=== PATIENT | female | born 1940 | race Caucasian/White ===

== ENCOUNTER 2018-06-30 17:01 | Inpatient (IN) ==
[2018-06-30 23:44] LABS: URINE SOURCE CLEAN CATCH
[2018-07-01 00:16] LABS: URINE RBC TNTC /HPF (<10); URINE WBC <10 /HPF (<10)
[2018-07-01 00:17] LABS: BILIRUBIN URINE NEGATIVE (NEGATIVE); BLOOD URINE NEGATIVE (NEGATIVE); COLOR YELLOW; GLUCOSE URINE NEGATIVE (NEGATIVE); KETONE URINE NEGATIVE (NEGATIVE); SP GRAVITY URINE 1.016; TURBIDITY URINE HAZY (CLEAR); UR EPITHELIAL CELLS <10 /HPF (<10); URINE BACTERIA 1+ /HPF
[2018-07-01 00:18] LABS: LEUKOCYTES URINE LARGE (NEGATIVE); NITRITE URINE NEGATIVE (NEGATIVE); PROTEIN URINE TRACE mg/dL (NEGATIVE); UROBILINOGEN URINE NORMAL (NORMAL)
[2018-07-01 00:20] LABS: URINE CASTS NONE SEEN; URINE CRYSTALS NONE SEEN; URINE SMALL ROUND CELLS NONE SEEN; URINE YEAST NONE SEEN
[2018-07-01] MEDS ORDERED: DUONEB (A & A) INH ONE ×2 (00:51→07:31)
[2018-07-01 00:59] LABS: BASO# 0.02 X1000 (0.0-0.2); BASO% 0.4 % (0.0-0.8); EOS# 0.04 X1000 (0.0-0.7); EOS% 0.7 % (0.0-10.0); HEMATOCRIT 36.5 % (37.0-47.0); HEMOGLOBIN 11.8 g/dL (12.0-16.0); IMM GRAN# 0.03 X1000 (0.0-0.04); IMM GRAN% 0.6 % (0.0-0.5); LYMPH# 1.15 X1000 (1.2-3.4); LYMPH% 21.4 % (20.5-51.1); MCH 36.1 PG (27-31); MCHC 32.3 g/dL (33-37); MCV 111.6 FL (81-99); MONO# 0.94 X1000 (0.11-0.59); MONO% 17.5 % (1.7-9.3); NEUT# 3.19 X1000 (1.4-6.5); NEUT% 59.4 % (42.2-75.2); PLT 220 X1000 (130-400); RBC 3.27 XMIL (4.2-5.4); RDW 14.2 % (11.5-14.5); WBC 5.37 X1000 (4.8-10.8)
[2018-07-01 01:20] LABS: ALB/GLOB RATIO 1.1; ALBUMIN 3.7 g/dL (3.5-5.0); CALCIUM 9.5 mg/dL (8.8-10.2); CREATININE 1.9 mg/dL (0.5-0.9); POTASSIUM 4.5 mmol/L (3.5-5.1); TOTAL BILIRUBIN 0.31 mg/dL (0.20-1.00); TOTAL PROTEIN 7.2 g/dL (6.3-8.3)
[2018-07-01] MEDS ORDERED: LASIX IV ONE (02:30)
--- NOTE | 2018-07-01 03:43 | PROVIDER DOCUMENTATION ---
This chart was entered by Cece East Scribe, acting as scribe for Young Conway MD. HPI-General Adult - General Chief Complaint: Female Stated Complaint: COUGH,CANT PEE,LEGS SHAKING Time Seen by Provider: 06/30/18 21:50 Source: patient Allergies/Adverse Reactions: Patient Allergies Allergy/AdvReac Type Severity Reaction Status Date / Time Iodinated Contrast- Oral and Allergy ITCHING Verified 04/06/17 11:17 IV Dye morphine Allergy ITCHING Verified 04/06/17 11:17 Home Medications: Home Medication List Medication Instructions Recorded Confirmed Last Taken Type Allopurinol 300 mg PO BID 09/08/14 04/11/17 04/10/17 08:00 History Metformin [Glucophage] 500 mg PO QHS 09/08/14 04/11/17 04/10/17 21:30 History Metoprolol Succinate E.r. [Toprol 50 mg PO BID 09/08/14 04/11/17 04/11/17 06:00 History Xl] Omeprazole [Prilosec] 20 mg PO DAILY@0700 09/08/14 04/11/17 04/10/17 08:00 History Alprazolam [Xanax] 0.25 mg PO BID #60 tablet 10/07/15 04/11/17 04/10/17 21:30 Rx Escitalopram Oxalate [Lexapro] 20 mg PO DAILY 04/06/17 04/11/17 04/10/17 08:00 History Furosemide 40 mg PO DAILY 04/06/17 04/11/17 04/10/17 08:00 History Lactobacillus Rhamnosus GG 1 each PO DAILY 04/06/17 04/11/17 04/10/17 08:00 History [Probiotic] Potassium Chloride E.r. [Micro-K] 10 meq PO DAILY 04/06/17 04/11/17 04/10/17 08: 00 History Hydrocodone/APAP 10 mg/325 mg 1 each PO Q4H PRN PRN #14 tablet 04/12/17 Unknown Rx [[place]-10] Levothyroxine [Synthroid] 100 microgm PO DAILY@0700 #100 04/12/17 Unknown Rx tablet - History of Present Illness -Gen Adult Nature of Presenting Problems: pt is a 78 yr old female presenting with urinary retention since 1900 last night , pt reports has not urinated at all since then, pt does admit 1 bowel movement today. pt also admits weakness to legs and dyspnea with exertion Location of Pain/Injury: reports: none Pain Radiation: reports: no radiation Quality of Pain: reports: none Severity: reports: moderate Onset/Duration: reports: last night (1899) Timing: reports: still present Context/Activities at Onset: reports: light activity Modifying Factors: improves with: nothing Associated Symptoms: reports: genitourinary problems, shortness of breath, weakness. denies: fever/chills, muscle aches Similar Symptoms Previously?: No Recently seen or treated by another doctor?: No Review of Systems - Adult - REVIEW OF SYSTEMS - ADULT Constitutional: reports: fatique. denies: chills, fever Eyes: reports: no symptoms reported Ears, Nose, Mouth & Throat: reports: no symptoms reported Cardiovascular: denies: chest pain, palpitations, syncope Respiratory: reports: dyspnea on exertion, shortness of breath. denies: cough Gastrointestinal: denies: abdominal pain, nausea, vomiting Genitourinary: reports: urinary retention (no urination since 1899 last date) Musculoskeletal: reports: muscle weakness Integumentary: reports: no symptoms reported Neurological: denies: dizziness/vertigo, headache/migraines Psychiatric: reports: no symptoms reported Endocrine: reports: no symptoms reported Hematologic/Lymphatic: reports: no symptoms reported Allergic/Immunologic: reports: no symptoms reported All Other Systems: Reviewed and Negative Past History - Adult - PAST MEDICAL HISTORY-ADULT Review of Records: reports: Old Records Reviewed, Nursing Assessment Review, Medications Reviewed, Social history reviewed & non-contributory. Major Childhood Illnesses: reports: denies history Cardiovascular: reports: HTN, hyperlipidemia Respiratory: reports: asthma Gastrointestinal: reports: GERD Obstetrical/Gynecological: reports: denies history Genitourinary: reports: denies history Musculoskeletal: reports: denies history Neurological: reports: denies history Endocrine/Immune: reports: Diabetes, thyroid disorder Other Conditions: reports: denies history - PRIOR SURGERIES/PROCEDURES Surgical/Procedure History: reports: cholecystectomy, hysterectomy, orthopedic ( extremity) (knee replacement) - IMMUNIZATION STATUS Childhood Immunizations: See Nurse Assessment Flu Vaccine: See Nurse Assessment - FAMILY HISTORY Family History: reviewed, not pertinent - SOCIAL HISTORY Living Situation: family Physical Exam-General - PHYSICAL EXAM-ADULT Initial Vital Signs Reviewed: Yes - CONSTITUTIONAL General Appearance: alert, no apparent distress, obese - EYES Eyes: PERRL/EOMI - HEAD, EARS, NOSE, MOUTH & THROAT HENMT: normocephalic/atraumatic, moist mucous membranes, normal ENT inspection - NECK Neck: non-tender, full range of motion, supple, normal inspection - RESPIRATORY Respiratory: chest non-tender, no pleuratic chest pain, no respiratory distress , no accessory muscle use, crackles - CARDIOVASCULAR Cardiovascular: normal peripheral pulses, no edema, bradycardia (52) - GASTROINTESTINAL (ABDOMEN) Abdominal Exam: normal bowel sounds, non tender, soft - LYMPHATIC Lymphatic: no adenopathy - MUSCULOSKELETAL Back Exam: normal inspection, no CVA tenderness, no vertebral tenderness Extremity: normal range of motion, non-tender, pedal edema - SKIN Integumentary: normal color, normal turgor, warm/dry - NEUROLOGIC Neurologic: grossly normal, no motor/sensory deficits - PSYCHIATRIC Psych/Mental Status: normal mood/affect, normal thought content, normal thought process, oriented x 3 Progress - PLAN OF CARE/RESULTS Progress/Plan/Lab Results: Vital Signs - 8 hr 06/30/18 17:35 Temperature 97.5 F L Pulse Rate 52 L Respiratory Rate 16 Blood Pressure 140/63 O2 Sat by Pulse Oximetry 97 Result Diagrams: 06/30/18 23:47 06/30/18 23:47 - EKG 1 Time of EKG reading by physician:: 22:57 EKG Read and Signed by:: Young Conway EKG Interpretation (*Must complete 3 of following elements*): Abnormal Rate: 52 Rhythm: sinus bradycardia with 1st degree AV block [place]: normal QRS: RBB NC Interval: normal ST Wave: normal - CONSULTS/PCP/HOSPITALIST Notification #1 *Consult/PCP/Hospitalist*: Dr Gonzales Time Discussed: 03:42 Consult Disposition: Admit (CHF exacerbatio MEHRAN Rodríguez pt) Departure - Departure Date of Disposition Decision: 07/01/18 Time of Disposition Decision: 03:42 DIAGNOSIS: CHF (congestive heart failure) Qualifiers: Heart failure type: unspecified Heart failure chronicity: acute on chronic Qualified Code(s): I50.9 - Heart failure, unspecified Disposition: ADMITTED INPATIENT 09 Certified Medical Emergency: Emergent Condition: Stable Referrals and Follow-Ups: Naomi Rodríguez MD [Primary Care Provider] - - Critical Care Note This patient required my direct & personal management of CC.: No Attestation - Physician/ GULSHAN Attestation The physician spent face to face time with patient:: Yes Advanced Practice Provider documentation review:: Supervising physician onsite and consulted in the evaluation and care of this patient. The physician did have a face to face encounter with the patient. This chart was documented by the indicated scribe, (Cece East Scribe) and accurately reflects the services I performed and decisions made by me, Young Conway MD, as attested by the provider's signature.
[2018-07-01] MEDS ORDERED: ZOFRAN IV PRN (03:52)
[2018-07-01] MEDS: HEPARIN SUBQ SCH ×3 (04:30→20:02)
--- NOTE | 2018-07-01 05:01 | HISTORY AND PHYSICAL ---
PRIMARY CARE PROVIDER: Hever Rodríguez. ONCOLOGIST: Dr. Rodgers in [place]. CHIEF COMPLAINT: Cough, congestion and weakness. HISTORY OF PRESENT ILLNESS: This is a pleasant 78-year-old female with a past medical history of non-Hodgkin lymphoma stage 4. Last chemotherapy was 2 months ago. She is followed by Dr. Rodgers in [place]. She also has anemia of chronic disease, diabetes mellitus type 2, hypertension, hypothyroidism with a multinodular goiter, gout and hiatal hernia with a baseline creatinine I believe around 1.7. She comes in today with complaint of fatigue for around a week, cough, congestion, dyspnea on exertion and she states that she has not urinated in around 24 hours. She also had complaint of increased swelling in bilateral lower extremities. A chest x- ray was obtained which showed mildly increased pulmonary vascular congestion and borderline cardiomegaly. The patient was noted to have mild JVD and crepitations and wheezes on examination. She was given 60 mg of Lasix in the emergency room by the ER provider. She will be admitted to CICU for further evaluation and treatment. PAST MEDICAL HISTORY: See HPI. PREVIOUS SURGICAL HISTORY: 1. Port-A-Cath placement. 2. Thyroid surgery. 3. Cholecystectomy. 4. Hysterectomy. 5. Back surgery. 6. Bilateral knee replacement. ALLERGIES: Morphine and IV contrast. FAMILY HISTORY: Father at 61 from coronary artery disease. Mother of complications related to a ruptured gallbladder. SOCIAL HISTORY: She is with 3 children. She is retired. Has a remote history of tobacco but has not smoked in many years. No alcohol or illicit drugs. HOME MEDICATIONS: A list of home medications has not been reconciled. An order was placed for Nursing to reconcile home medications, place in the computer. These will be restarted when appropriate. REVIEW OF SYSTEMS: Fourteen point review of systems conducted with the patient. Pertinent positives listed above in the HPI. All other systems reviewed and found to be negative. PHYSICAL EXAMINATION: VITAL SIGNS: Temperature 97.5, pulse 50, respirations 16, blood pressure 156/67 , oxygen saturation 97% on 2 L nasal cannula. GENERAL: Very pleasant 78-year-old female lying in the ER stretcher, answers all questions appropriately, is alert and oriented times 3. Family is at bedside, very attentive. She is in no acute distress. HEENT: Head is atraumatic, normocephalic. Pupils equal, round, reactive to light. Extraocular eye movement is intact. Sclerae are anicteric. Conjunctiva is pink. Oral mucosa is mildly dry. NECK: Supple. Mild JVD with hepatojugular reflux noted. Trachea is midline. No cervical lymphadenopathy. CARDIAC: S1, S2 appreciated. No murmurs, gallops, rubs. LUNGS: Crepitations noted throughout bilateral lung damon with mild expiratory wheezing. No rhonchi. Symmetrical rise and fall with respiration. ABDOMEN: Soft, nondistended, nontender. Bowel sounds present all 4 quadrants, normoactive. No pulsatile mass. No organomegaly. EXTREMITIES: Two-plus pitting edema bilateral lower extremities with noted lymphedema to bilateral lower extremities. Two-plus pedal pulses bilaterally. No clubbing or cyanosis. MUSCULOSKELETAL: 3/5 strength bilateral lower extremities, 4/5 strength bilateral upper extremities. Full range of motion in upper extremities, mildly decreased range of motion in bilateral lower extremities. GENITOURINARY: No bladder distention. Patient voids. Otherwise deferred. NEUROLOGICAL: Alert and oriented times 3. No focal motor deficits noted. Otherwise nonfocal examination. DIAGNOSTIC DATA: Chest x-ray: Borderline cardiomegaly with mildly increased pulmonary vascular congestion. LABORATORY DATA: WBC 5.37. Hemoglobin 11.8. Hematocrit 36.5. Platelet count 220. Sodium 138. Potassium 4.5. Chloride 95. Carbon dioxide 28. BUN 35. Creatinine 1.9. Glucose 127. ProBNP 2967. TSH 29.18. ASSESSMENT AND PLAN: 1. Clinical congestive heart failure with exacerbation. Patient states that she has not been told that she has congestive heart failure but she is on Lasix daily. Check echocardiogram in a.m. Continue Lasix 40 mg IV q.12 hours. Strict I's and O's. 2. Diabetes mellitus type 2. We will start fingerstick blood sugars q.a.c. and at bedtime with low-dose sliding scale insulin. Check hemoglobin A1c. Restart patient's home medications when appropriate. 3. Acute kidney injury on chronic kidney disease stage 3. We will give Lasix as patient is fluid volume overloaded. Recheck laboratory data a.m. Defer further evaluation to Hever Rodríguez, her primary care provider. 4. Non-Hodgkin lymphoma stage 4, aware. Patient follows with Dr. Rodgers in [place]. Last chemotherapy was 2 months ago from what I understand. 5. Hypothyroidism. Patient's TSH is noted to be 29. We will order free T4. We will continue 100 mcg of Synthroid at this time. Defer to Dr. Rodríguez, her primary care provider , for needed adjustments to her maintenance dose of Synthroid. Further recommendations per patient clinical course. Dictated by JOE Hobbs for Jackie Gonzales MD cc: JOE Hobbs MD Jagan Reddy, MD Ali Hacham Independent exam performed by me showed diffuse crepitations without any overt wheezing. Decreased air entry noted and bilat. +1 edema of legs noted. She will be treated as noted above and this plan was discussed with me. I do believe pt' s renal function will likely take a hit,but diuresis in this patient is essential. Daily BMP and CXR x 2 days. MTDD
--- NOTE | 2018-07-01 07:21 | Diag Imaging Result Doc PS360 ---
EXAM: CHEST-1 VIEW 06/30/2018 HISTORY: edema TECHNIQUE: AP portable at 2211 COMMENT: Considering differences in technique there has been no significant change since 09/08/2014. There is a Port-A-Cath on the right with its tip in the superior vena cava. IMPRESSION: Stable chest. Electronically signed by Raul Rodriguez 07/01/2018 7:18 AM
[2018-07-01] MEDS ORDERED: SYNTHROID PO SCH (07:31)
[2018-07-01] MEDS: HUMALOG SUBQ SCH ×4 (07:31→20:00)
[2018-07-01 08:33] LABS: HEMOGLOBIN A1C 6.3 % (4.8-6.0)
[2018-07-01 08:49] LABS: IRON SATURATION 12 %; TIBC 325 ug/dL; TOTAL IRON 39 ug/dL (49-151); UNBOUND IRON 286 ug/dL (112-346)
[2018-07-01 08:55] LABS: FERRITIN 474 ng/mL (13-150)
[2018-07-01] MEDS: TYLENOL PO PRN (10:22)
--- NOTE | 2018-07-01 15:42 | CONSULTATION ---
DATE OF CONSULTATION: 07/01/2018 IMPRESSION: 1. Productive cough. Etiology not clear. 2. Suspected congestive heart failure. Findings no longer apparent by the time I see her after limited diuresis. 3. Hypothyroidism. 4. Non-Hodgkin's lymphoma, stage IV, receiving maintenance chemotherapy via port in right subclavian site. 5. Diabetes mellitus type 2. 6. Hypertension. 7. Chronic kidney disease. Current creatinine appears to be above her baseline creatinine. 8. Chronic dependent edema of lower extremities for several years. RECOMMENDATIONS: 1. Echocardiography. 2. No further diuresis appears to be needed at this at this point. Would follow renal function daily. 3. Increase thyroid hormone replacement. HISTORY: This 78-year-old white female with past history of non-Hodgkin's lymphoma, stage IV, receiving maintenance chemotherapy, hypertension, hypothyroidism, and type 2 diabetes mellitus, was admitted for further management of suspected congestive heart failure. She has been on chronic diuretic therapy with daily Lasix for some time. She does have a tendency for dependent edema of the lower extremities, which dates back several years. She has significant obesity. She relates having recent cough productive of green sputum. Additionally for the last several weeks, she has had anorexia and has not been eating what she normally eats. She has been taking her daily Lasix throughout this period. There has been no orthopnea. With her productive cough, she reports exertional shortness of breath. She does have some tendency for asthma and uses a bronchodilator inhaler. She came to the emergency room for evaluation and was noted to have some findings to suggest congestive heart failure. She has been administered intravenous Lasix. PAST MEDICAL HISTORY: 1. Non-Hodgkin's lymphoma. 2. Hypertension. 3. Hyperlipidemia. 4. Type 2 diabetes mellitus. 5. Obesity. 6. Hypothyroidism. 7. History of multinodular goiter. 8. Gout. 9. Hiatal hernia. 10. Chronic kidney disease. PAST SURGICAL HISTORY: Includes thyroid surgery for goiter, cholecystectomy, hysterectomy, unspecified back surgery, bilateral knee replacement surgery, and right chest Port-A-Cath placement. ALLERGIES: She is allergic or intolerant to morphine and IV contrast. MEDICATIONS: Prior to admission as listed. SOCIAL HISTORY: She is with 3 children. She is retired. She quit smoking 30 years ago. She does not use alcohol. FAMILY HISTORY: Positive for coronary disease. REVIEW OF SYSTEMS: Pulmonary: Negative for chest pain. She reports cough productive of green sputum, and exertional shortness of breath, but no orthopnea. Gastrointestinal: Negative. Constitutional: Negative for fever. Remainder of review of systems negative/noncontributory with 14 total systems reviewed. PHYSICAL EXAMINATION: General: This is an obese, elderly white female in no distress. Vital signs: Blood pressure 142/70, heart rate 62 and regular, oxygen saturation 100% on nasal cannula oxygen. HEENT: Extraocular movements appear intact. Mucous membranes are moist. Neck: Supple. Jugular venous distention cannot be appreciated. Chest: Clear to auscultation. Cardiac: Exam reveals a regular rate and rhythm without appreciable murmur or gallop. Abdomen: Soft, nontender. Extremities: Without edema, with some chronic venous stasis changes. Neurologic: Exam reveals her to be alert and fully oriented. Speech is fluent. She moves all 4 extremities equally well. Skin: Warm and dry. Psychiatric: Exam reveals her mood to be appropriate. DIAGNOSTIC STUDIES: A 12-lead EKG is not yet recorded in the electronic medical record. Chest x-ray is reviewed and demonstrates no acute infiltrates. There is no evidence of pulmonary edema. There is no evidence of pulmonary vascular congestion. LABORATORY DATA: White blood cell count 5.37, hematocrit 36.5, hemoglobin 11.8, platelet count 220,000. Sodium 138, potassium 4.5, chloride 95, carbon dioxide 28, BUN 35, creatinine 1.9, glucose 127, albumin 3.7. TSH 29.18, T4 8.99. cc: MD Loc Leigh MD
[2018-07-01] MEDS ORDERED: LASIX IV SCH (16:00)
[2018-07-01] MEDS ORDERED: CALMOSEPTINE OINTMENT TOP PRN (21:35)
[2018-07-01] MEDS: XANAX PO SCH (22:05)
[2018-07-01] MEDS: DUONEB (A & A) INH PRN (23:07)
[2018-07-02] MEDS: DUONEB (A & A) INH PRN ×4 (03:47→18:58)
[2018-07-02] MEDS: HEPARIN SUBQ SCH ×3 (05:51→21:22)
[2018-07-02] MEDS: SYNTHROID PO SCH ×2 (05:51→06:04)
[2018-07-02] MEDS: HUMALOG SUBQ SCH ×4 (06:04→21:23)
[2018-07-02 06:10] LABS: BASO# 0.01 X1000 (0.0-0.2); BASO% 0.2 % (0.0-0.8); EOS# 0.05 X1000 (0.0-0.7); EOS% 1.2 % (0.0-10.0); HEMATOCRIT 30.5 % (37.0-47.0); HEMOGLOBIN 9.7 g/dL (12.0-16.0); IMM GRAN# 0.03 X1000 (0.0-0.04); IMM GRAN% 0.7 % (0.0-0.5); LYMPH% 23.4 % (20.5-51.1); MCH 36.2 PG (27-31); MCHC 31.8 g/dL (33-37); MCV 113.8 FL (81-99); NEUT# 2.59 X1000 (1.4-6.5); NEUT% 60.5 % (42.2-75.2); PLT 196 X1000 (130-400); RBC 2.68 XMIL (4.2-5.4); WBC 4.28 X1000 (4.8-10.8)
[2018-07-02 06:14] LABS: CALCIUM 8.8 mg/dL (8.8-10.2); CREATININE 1.2 mg/dL (0.5-0.9); MAGNESIUM 1.7 mg/dL (1.5-2.7); POTASSIUM 4.2 mmol/L (3.5-5.1)
[2018-07-02] MEDS: XANAX PO SCH ×3 (09:32→21:22)
--- NOTE | 2018-07-02 09:33 | ECHO REPORT ---
ORDER DATE: 07/01/2018 MEASUREMENTS: Left ventricular end-diastolic diameter 4.6, end-systolic murmur 2.8, septal thickness 1.0, aortic root 3.1, left atrium 3.7. SUMMARY: 1. Technically difficult study due to limited acoustic window quality. 2. Aortic valve is not well imaged but appears to demonstrate mild sclerotic changes with adequate opening. Peak gradient across the aortic valve is 15 mmHg. There is mild to moderate aortic regurgitation. Mitral annular calcification is demonstrated with mild thickening of the mitral valve leaflets. Mitral valve opening appears adequate. The mitral valve area by pressure half-time appears to be 3.3 cm2. There is mild mitral regurgitation. Tricuspid valve without evidence of structural abnormality, while pulmonic valve is not well demonstrated. There is mild tricuspid regurgitation and trace pulmonic insufficiency. The estimated systolic PA pressure by Doppler is 55 mmHg, suggesting moderate pulmonary hypertension. The aortic root is normal in size. 3. Normal left ventricular dimensions demonstrated. Estimated left ventricular ejection fraction appears to be at least 70%. No regional wall motion findings are evident. The left atrium is upper normal in size. The right atrium and right ventricle are normal in size with grossly preserved right ventricular systolic function. 4. No pericardial effusion. 5. Inferior vena cava not well demonstrated but appears to demonstrate mildly elevated central venous pressure. cc: MD Omar Leigh CRNP Jagan Reddy, MD
--- NOTE | 2018-07-02 09:56 | PROGRESS NOTE ---
DATE: 07/02/2018 SUBJECTIVE: The patient says she does not feel quite as well as she did yesterday, but there is nothing very specific. She says she is just not as hungry. She tried eating her sausage biscuit which is what she was eating yesterday when I saw her in the emergency room and she has a half of one eaten in her room today that her brought in and she just could not finish it. I am not sure that is the best diet for her anyway at this time. She is a diabetic. OBJECTIVE: Weight: Weight is 267 pounds 12 ounces. Vitals: Temperature is 99 degrees Fahrenheit. Pulse 85 and regular, respirations 17, blood pressure 134/75. HEENT: She is normocephalic. EOMS intact. PERRLA. Throat clear. Lungs: Sound clear to auscultation and percussion without rhonchi, rales, or wheezes. Heart: Regular rate and rhythm without murmurs, gallops, or friction rubs. Abdomen: Soft. Active bowel sounds. No organomegaly or tenderness. Neurologic: Exam intact grossly. IMAGING: The patient's chest x-ray yesterday was essentially clear. She did feel better after Lasix. I have ordered an echocardiogram. Recreation Counselor has seen her and does not see any heart failure at this particular time, but she has already diuresed a good bit. Hemoglobin did drop down from 11.8 to 9.7. We will keep a watch on this. It is interesting that though she had never understood that she had a history of congestive heart failure, she was taking Lasix at home daily. She is also diabetic. Blood sugar was 118 this morning. ProBNP yesterday was 2967. ASSESSMENT: 1. Congestive heart failure. 2. Adult onset diabetes mellitus. 3. Morbid obesity. PLAN: Continue support. Appreciate help from Cardiology. cc: MD Loc Santamaria Jr, MD
[2018-07-02] MEDS ORDERED: LASIX IV ONE (11:49)
[2018-07-02] MEDS ORDERED: ELIQUIS PO SCH (12:00)
[2018-07-02] MEDS: CARDIZEM PO SCH ×2 (12:03→21:22)
--- NOTE | 2018-07-02 12:34 | PROGRESS NOTE ---
DATE: 07/02/2018 SUBJECTIVE: The patient complains of cough. There has been no chest pain. She has some mild shortness of breath. OBJECTIVE: Vital Signs: Blood pressure 134/75, heart rate 85, oxygen saturation 100%. Telemetry shows episodes of atrial fibrillation with increased ventricular rate response. Neck: Jugular venous distention cannot be appreciated. Chest: Auscultation of the chest reveals scattered expiratory wheezes. Cardiac: Reveals an irregular rate and rhythm without appreciable murmur or gallop. Extremities: Demonstrate very mild edema on the back of her left lower legs. LABORATORY DATA: Includes a white blood cell count of 4.2, hematocrit 30.5, hemoglobin 9.7, platelet count 196,000. Sodium 141, potassium 4.2, chloride 100, carbon dioxide 31, BUN 25, creatinine 1.2, glucose 119. IMPRESSIONS: 1. Cough and wheezing. Suspect bronchospasm likely underlying, possibly bronchitis. 2. Suspected congestive heart failure. There appears to be some findings to suggest right-sided congestive heart failure related to moderate pulmonary hypertension by echo. Left ventricular ejection fraction is normal. Inferior vena cava's appearance on admission suggested some elevation of central venous pressure. 3. Hypothyroidism. 4. Non-Hodgkin's lymphoma stage IV, receiving maintenance chemotherapy. 5. Apparent paroxysmal atrial fibrillation. Patient reports this has been present and she was started on rate control and anticoagulation with Eliquis. 6. Diabetes mellitus type 2. 7. Hypertension. 8. Chronic kidney disease. 9. Chronic edema. RECOMMENDATIONS: 1. Gently diurese. 2. Leave off metoprolol given significant bradycardia and first-degree AV block, as well as wheezing. Will initiate low-dose diltiazem. 3. The patient apparently had been on Eliquis low dose prior to admission. We will resume low- dose Eliquis. 4. Obtain hospital and office records for review as she has had previous Cardiology care in [place]. cc: MD Loc Leigh MD
[2018-07-02] MEDS: ELIQUIS PO SCH ×2 (12:46→21:22)
[2018-07-02] MEDS: TAMBOCOR PO SCH ×2 (12:46→21:22)
[2018-07-03] MEDS: DUONEB (A & A) INH PRN ×3 (02:40→16:30)
[2018-07-03] MEDS: HEPARIN SUBQ SCH (06:01)
[2018-07-03] MEDS: SYNTHROID PO SCH (06:01)
[2018-07-03] MEDS: HUMALOG SUBQ SCH (06:23)
--- NOTE | 2018-07-03 07:33 | EKG Report ---
Test Performed on : 06/30/2018 10:57:20 PM Test Reason : WEAKNESS Blood Pressure : / mmHG Vent. Rate : 052 BPM Atrial Rate : 052 BPM P-R Int : 266 ms QRS Dur : 178 ms QT Int : 424 ms P-R-T Axes : 077 -02 -03 degrees QTc Int : 394 ms Sinus bradycardia. with 1st degree AV block. Right bundle branch block Abnormal ECG When compared with ECG of 06-APR-2017 11:37, [place] interval has increased QRS duration has increased Nonspecific T wave abnormality, worse in Inferior leads Nonspecific T wave abnormality, worse in Anterolateral leads QT has shortened Unconfirmed Result
[2018-07-03] MEDS: CARDIZEM PO SCH ×4 (07:38→16:24)
--- NOTE | 2018-07-03 07:53 | EKG Report ---
Test Performed on : 07/02/2018 2:09:32 PM Test Reason : bradycardia Blood Pressure : / mmHG Vent. Rate : 105 BPM Atrial Rate : 094 BPM P-R Int : 000 ms QRS Dur : 086 ms QT Int : 386 ms P-R-T Axes : 000 -52 -52 degrees QTc Int : 510 ms Atrial fibrillation. with rapid ventricular response. with premature ventricular or aberrantly conduc vero complexes. Left axis deviation Possible Inferior infarct , old T wave abnormality, consider anterolateral ischemia Right bundle branch block Abnormal ECG When compared with ECG of 30-JUN-2018 22:57, (Unconfirmed) Atrial fibrillation. has replaced Sinus rhythm. Vent. rate has increased BY 53 BPM Confirmed by Madhavi SMITH, Mervin Ngo ([id number]) on 07/03/2018 9:57:22 PM
--- NOTE | 2018-07-03 08:08 | EKG Report ---
Test Performed on : 07/03/2018 08:02:32 AM Test Reason : HR 150 Blood Pressure : / mmHG Vent. Rate : 124 BPM Atrial Rate : 127 BPM P-R Int : 000 ms QRS Dur : 156 ms QT Int : 360 ms P-R-T Axes : 000 -33 -33 degrees QTc Int : 517 ms Atrial fibrillation. with rapid ventricular response. with premature ventricular or aberrantly conduc vero complexes. Indeterminate axis Right bundle branch block Inferior infarct (cited on or before 02-JUL-2018) T wave abnormality, consider lateral ischemia Abnormal ECG When compared with ECG of 02-JUL-2018 14:09, (Unconfirmed) No significant change was found Confirmed by Madhavi SMITH, Mervin Ngo ([id number]) on 07/03/2018 10:15:48 PM
[2018-07-03] MEDS ORDERED: CARDIZEM IV ONE (08:15)
[2018-07-03] MEDS ORDERED: CARDIZEM 100 MG/NS 100 MG/100 ML IVPB IV SCH (08:15)
[2018-07-03] MEDS ORDERED: LASIX PO SCH (09:00)
[2018-07-03] MEDS: LEVAQUIN 500 MG/D5W 500 MG/100 ML IVPB IV SCH (09:19)
[2018-07-03] MEDS: LASIX PO SCH (09:19)
[2018-07-03] MEDS: TAMBOCOR PO SCH ×2 (09:19→20:42)
[2018-07-03] MEDS: ZYLOPRIM PO SCH (09:19)
[2018-07-03] MEDS: XANAX PO SCH ×3 (09:19→20:42)
[2018-07-03] MEDS: ELIQUIS PO SCH ×2 (09:19→20:42)
[2018-07-03] MEDS: CARDIZEM 125/NS 125 MG/125 ML IVPB IV SCH (10:23)
[2018-07-03] MEDS: HUMULIN R SUBQ SCH ×3 (11:02→20:42)
--- NOTE | 2018-07-03 15:46 | PROGRESS NOTE ---
DATE: 07/03/2018 CARDIOLOGY FOLLOWUP NOTE: SUBJECTIVE: Patient continues to have some cough productive of green sputum. There has been no chest pain. Shortness of breath seems to have improved. She went into atrial fibrillation with rapid ventricular rate earlier this morning and was started on intravenous Cardizem drip. Heart rate is now better controlled. OBJECTIVE: Vital Signs: Blood pressure 120/52, heart rate 95 and irregular with ECG monitor showing atrial fibrillation. Oxygen saturation 96% on nasal cannula oxygen at 2 L/minute. There is no significant jugular venous distention. Chest: Auscultation of the chest reveals scattered expiratory wheezes. Cardiac: Reveals an irregular rate and rhythm without appreciable murmur or gallop. Extremities: Without edema. LABORATORY DATA: Includes a white blood cell count of 4.2, a hematocrit 30.5, hemoglobin 9.7, platelet count 196,000. Sodium 141, potassium 4.2, chloride 100, carbon dioxide 31, BUN 25, creatinine 1.2, glucose 119, magnesium 1.7. IMPRESSION: 1. Cough and wheezing. Suspect bronchospasm likely secondary to possible underlying bronchitis. 2. Suspected congestive heart failure. There seems to be some findings to suggest right-sided congestive heart failure related to moderate pulmonary hypertension by echo. Left ventricular ejection fraction is normal. 3. Paroxysmal atrial fibrillation. Patient has had recurrent atrial fibrillation and it would appear that flecainide. 50 mg may be not adequate to prevent atrial fibrillation. 4. Non-Hodgkin's lymphoma, stage IV. Requires maintenance chemotherapy. 5. Diabetes mellitus type 2. 6. Hypertension. 7. Chronic kidney disease. 8. Chronic edema. RECOMMENDATIONS: 1. Increase oral Cardizem and hopefully taper off of IV Cardizem. 2. Gently increased flecainide to 100 mg p.o. b.i.d. 3. Continue anticoagulation with Eliquis. cc: MD Loc Leigh MD
--- NOTE | 2018-07-03 21:25 | PROGRESS NOTE ---
DATE: 07/03/2018 SUBJECTIVE: A 78-year-old obese white female has been suffering from non- Hodgkin's lymphoma under chemotherapy by Dr. Rodgers, admitted to the hospital for swelling of legs, shortness of breath, cough, wheezing, low-grade fever. She also has cellulitis in both legs. She has a Eason catheter. Cardiology consult also was obtained. PAST MEDICAL HISTORY: Reviewed. PAST SURGICAL HISTORY: Reviewed. MEDICINES: Reviewed. ALLERGIES: Reported to iodine contrast. REVIEW OF SYSTEMS: HEENT: No headache. No vision problem. Cardiopulmonary : Shortness of breath, cough, wheezing. No chest pain. Swelling of feet. Neurologic: No focal symptoms. EXAMINATION: Vital Signs: She has low-grade fever, tachycardic. Hemodynamics were stable. Blood pressure is 121/52, 2 L nasal cannula. I's and O's negative so far. negative 5 L. HEENT: Atraumatic, normocephalic. Pupils equal, reactive to light. Nose and throat within normal limits. Neck: Supple. No lymphadenopathy. No goiter. Chest: Bilateral air entry. Heart: Distant heart sounds. Abdomen: Belly is soft, nontender. Good bowel sounds. Extremities: 3+ pedal edema. Cellulitis in both legs. No Neurologic: No obvious neurological deficits. INVESTIGATIONS: CBC: White cell count 4.2, hematocrit 30, platelets 196,000. SMA 7: Sodium 141, potassium 4.2, chloride 100, BUN 25, creatinine 1.2, glucose 119, magnesium 1.7. Urine cultures mixed evan. ASSESSMENT AND PLAN: 1. Non-Hodgkin's lymphoma, under chemotherapy. 2. Paroxysmal atrial fibrillation, currently in sinus. Dr. Newsome has started her on Eliquis and Cardizem. 3. Cellulitis of both legs. IV Levaquin. Creatinine 1.92, came down to 1.2. 4. Hypothyroidism, on Synthroid. Dependent edema. Continue on IV Lasix. 5. Gout, on Zyloprim. 6. Chronic anxiety, on Xanax. We will repeat the labs in the morning. 7. Discussed the plan of care. We will follow up. LEVEL OF DOCUMENTATION: 25 minutes. cc: MD JOSÉ MIGUEL Ramírez
[2018-07-04] MEDS: CARDIZEM 125/NS 125 MG/125 ML IVPB IV SCH (01:15)
[2018-07-04 05:42] LABS: BASO# 0.01 X1000 (0.0-0.2); BASO% 0.3 % (0.0-0.8); EOS# 0.07 X1000 (0.0-0.7); EOS% 2.3 % (0.0-10.0); HEMATOCRIT 31.5 % (37.0-47.0); HEMOGLOBIN 9.9 g/dL (12.0-16.0); IMM GRAN# 0.03 X1000 (0.0-0.04); LYMPH# 0.69 X1000 (1.2-3.4); LYMPH% 22.4 % (20.5-51.1); MCH 36.3 PG (27-31); MCHC 31.4 g/dL (33-37); MCV 115.4 FL (81-99); MONO% 22.7 % (1.7-9.3); MPV 10.8 FL (7.4-10.4); NEUT# 1.58 X1000 (1.4-6.5); NEUT% 51.3 % (42.2-75.2); PLT 210 X1000 (130-400); RBC 2.73 XMIL (4.2-5.4); RDW 14.4 % (11.5-14.5); WBC 3.08 X1000 (4.8-10.8)
[2018-07-04] MEDS: SYNTHROID PO SCH (06:26)
[2018-07-04] MEDS: HUMULIN R SUBQ SCH ×4 (06:26→22:07)
[2018-07-04 06:27] LABS: ALB/GLOB RATIO 1.1; ALBUMIN 3.2 g/dL (3.5-5.0); CALCIUM 9.3 mg/dL (8.8-10.2); CREATININE 1.1 mg/dL (0.5-0.9); POTASSIUM 3.6 mmol/L (3.5-5.1); TOTAL BILIRUBIN 0.29 mg/dL (0.20-1.00)
[2018-07-04 06:57] LABS: BANDS 4 % (0-1); LYMPHS 30 % (21-51); MONO 6 % (1-9); SEGS 60 % (42-75)
[2018-07-04] MEDS: CARDIZEM PO SCH ×3 (08:20→16:31)
[2018-07-04] MEDS: ZYLOPRIM PO SCH (08:20)
[2018-07-04] MEDS: LEVAQUIN 500 MG/D5W 500 MG/100 ML IVPB IV SCH (08:20)
[2018-07-04] MEDS: XANAX PO SCH ×3 (08:20→21:07)
[2018-07-04] MEDS: ELIQUIS PO SCH ×2 (08:20→21:07)
[2018-07-04] MEDS: LASIX PO SCH (08:20)
[2018-07-04] MEDS: TAMBOCOR PO SCH ×2 (08:20→21:08)
--- NOTE | 2018-07-04 08:46 | PROGRESS NOTE ---
DATE: 07/04/2018 SUBJECTIVE: Patient continues with shortness of breath and wheezing. There has been no chest pain. There has been no palpitations. She continues in atrial fibrillation. OBJECTIVE: Vital Signs: Blood pressure 132/63 to 151/77, heart rate 88 to 102 with ECG monitor showing atrial fibrillation. Neck: There is no significant jugular venous distention. Chest: Auscultation of the chest reveals scattered expiratory wheezes. Cardiac: Reveals an irregular rate and rhythm without appreciable murmur, rub, or gallop. There is no evidence of peripheral edema. LABORATORY DATA: Includes a white blood cell count 3.08, hematocrit 31.5, hemoglobin 9.9, platelet count 210,000. Sodium 143, potassium 3.6, chloride 99, carbon dioxide 32, BUN 17, creatinine 1.1, glucose 133. IMPRESSION: 1. Persistent cough and wheezing with bronchospasm evident. Suspect acute bronchitis. 2. Paroxysmal atrial fibrillation. Patient has had recurrent atrial fibrillation, and flecainide dose just recently increased. Patient also switched from beta-ansley to diltiazem due to prominent wheezing. 3. Non-Hodgkin lymphoma, stage IV, requiring maintenance chemotherapy. 4. Type 2 diabetes mellitus. 5. Hypertension. 6. Chronic kidney disease. 7. Chronic edema. RECOMMENDATIONS: 1. Discontinue IV Cardizem and just oral Cardizem as needed. 2. Continue flecainide at increased dose 100 mg p.o. b.i.d. 3. Continue anticoagulation with Eliquis. 4. Obtain PA and lateral chest x-ray. cc: MD Loc Leigh MD
--- NOTE | 2018-07-04 09:55 | Diag Imaging Result Doc PS360 ---
EXAM: CHEST-2 VIEWS HISTORY: shortness of breath, wheezing, AF TECHNIQUE: Chest two views COMPARISON: 06/30/2018 FINDINGS: The lungs are hyperexpanded. The heart is not enlarged. There is a right jugular portacatheter. No pneumothorax. The vessels are not distended. There are no infiltrates. There may be a tiny right pleural effusion. IMPRESSION: Tiny right pleural effusion Electronically signed by Augusto Horan 07/04/2018 9:52 AM
[2018-07-04] MEDS: DUONEB (A & A) INH PRN ×3 (10:03→22:20)
--- NOTE | 2018-07-04 21:41 | PROGRESS NOTE ---
DATE: 07/04/2018 Patient is doing little better still coughing, secured entrance monitor now she is back in atrial fibrillation. She is on Cardizem drip and swelling is much improved. Continues to be diuresed with IV Lasix. Redness in both legs are better. Patient has a Eason catheter. EXAMINATION: Temperature is 98 degrees, pulse is 86, blood pressure 146/70 and on 1 L nasal cannula. I's and O's -1.1 L. Morbidly obese.HEENT: Within normal limits. Chest: Bilateral air entry. Heart: Sounds are very distant. Belly: Is soft, nontender. Decreased edema in both legs as well as redness. LABORATORY DATA: CBC, white cell count 3.0, hematocrit 31.5, platelets 210,000. SMA 7 sodium 143, potassium 3.6, BUN 17, creatinine 1.1, glucose 183, liver function test was normal. Urine is mixed evan. ASSESSMENT AND PLAN: 1. Decompensated congestive heart failure with systolic function 70% with pulmonary hypertension with underlying atrial fibrillation. Continue IV Lasix. 2. Atrial fibrillation rate controlled as was the rhythm control with flecainide and Cardizem along with anticoagulation with Eliquis. 3. Port on the right side of the chest stable. 4. Diabetes, continue sliding scale with insulin coverage. 5. 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 6. Cellulitis of both legs due to edema on intravenous Levaquin. Hypothyroidism on Synthroid. Elevated TSH. Continue to monitor. 7. Gout on allopurinol. 8. Non-Hodgkin lymphoma, hold on the chemotherapy and will follow up. LEVEL OF DOCUMENTATION: 25 minutes. cc: Loc Rodríguez MD
[2018-07-05] MEDS: TYLENOL PO PRN ×2 (00:22→23:04)
[2018-07-05] MEDS: SYNTHROID PO SCH (06:24)
[2018-07-05] MEDS: HUMULIN R SUBQ SCH ×4 (06:41→21:50)
[2018-07-05] MEDS: ZYLOPRIM PO SCH (08:42)
[2018-07-05] MEDS: CARDIZEM PO SCH ×3 (08:42→21:50)
[2018-07-05] MEDS: LEVAQUIN 500 MG/D5W 500 MG/100 ML IVPB IV SCH (08:42)
[2018-07-05] MEDS: ELIQUIS PO SCH ×2 (08:42→21:49)
[2018-07-05] MEDS: LASIX PO SCH (08:42)
[2018-07-05] MEDS: XANAX PO SCH ×3 (08:42→21:50)
[2018-07-05] MEDS: TAMBOCOR PO SCH ×2 (08:42→21:50)
[2018-07-05] MEDS ORDERED: SOLU-MEDROL IV ONE (15:42)
[2018-07-05] MEDS: XOPENEX NEB INH SCH ×2 (20:00→23:10)
[2018-07-05] MEDS: NS NEB INH SCH ×2 (20:00→23:11)
--- NOTE | 2018-07-06 02:35 | PROGRESS NOTE ---
DATE: 07/05/2018 SUBJECTIVE: She is slowly getting better and decreased her cough. Currently the patient is still in atrial fibrillation. No chest pain. Never had a stress test done. Taking oxygen. Edema is improving in both legs. OBJECTIVE: Vital Signs: Temperature is 97 degrees, pulse is 83, blood pressure is 147/62, O2 sat on 2 L nasal cannula is 99%. I's and O's minus 200 mL. HEENT: Within normal limits. Neck: Supple. Chest: Bilateral air entry. Heart: Sounds are regular. No murmur. Abdomen: Belly is soft. Obese. Suboptimal. Extremities: Decreased erythema. Scars present on both knees. Eason still placed. LABORATORY DATA: None reported. Blood sugar 240. ASSESSMENT AND PLAN: 1. Chronic atrial fibrillation with decompensated diastolic heart failure. Follow up chest x-ray is improving. Continue on flecainide and rate control with Cardizem and Eliquis for anticoagulation. 2. Non-Hodgkin's lymphoma. Stable. 3. Follow up on atrial fibrillation. Echocardiography findings noted. No chest pain. Normal thyroid function tests. Thyroid stimulating hormone is slightly high. The patient is taking on Synthroid. 4. Discontinue Eason. 5. Restart on Lyrica for chronic pain. 6. The patient is encouraged to ambulate and continue present medical therapy. LEVEL OF DOCUMENTATION: 25 minutes. cc: Loc Rodríguez MD
[2018-07-06] MEDS: SYNTHROID PO SCH (06:30)
[2018-07-06] MEDS: HUMULIN R SUBQ SCH ×4 (06:30→20:38)
[2018-07-06] MEDS: ELIQUIS PO SCH ×2 (08:27→20:38)
[2018-07-06] MEDS: LASIX PO SCH (08:27)
[2018-07-06] MEDS: XANAX PO SCH ×3 (08:27→20:38)
[2018-07-06] MEDS: KLOR-CON PO SCH (08:27)
[2018-07-06] MEDS: LEVAQUIN 500 MG/D5W 500 MG/100 ML IVPB IV SCH (08:27)
[2018-07-06] MEDS: ZYLOPRIM PO SCH (08:27)
[2018-07-06] MEDS: CARDIZEM PO SCH ×3 (08:27→20:38)
[2018-07-06] MEDS: TAMBOCOR PO SCH ×2 (08:27→20:38)
[2018-07-06] MEDS: NS NEB INH SCH (09:07)
[2018-07-06] MEDS: XOPENEX NEB INH SCH ×5 (09:07→23:06)
--- NOTE | 2018-07-06 11:45 | Diag Imaging Result Doc PS360 ---
EXAM: KNEE 3 VIEWS LEFT 07/06/2018 HISTORY: Pain TECHNIQUE: Left knee three views COMMENT: There is a total knee arthroplasty. There is no evidence of acute fracture, dislocation, periosteal reaction, or erosion. There are no previous studies available for comparison. There is some subcutaneous edema. There are calcifications in the soft tissues anterior to the proximal tibia. IMPRESSION: Postsurgical changes. No evidence of acute bony disease. Electronically signed by Raul Rodriguez 07/06/2018 11:43 AM
--- NOTE | 2018-07-06 14:43 | PROGRESS NOTE ---
DATE: 07/06/2018 SUBJECTIVE: Patient reports feeling better with less shortness of breath. There has been no chest pain. She remains in atrial fibrillation. OBJECTIVE: Vital Signs: Blood pressure 129/55, heart rate 90 and irregular with ECG monitor showing atrial fibrillation. Oxygen saturation 98% on nasal cannula oxygen at 2 L/minute. There is no significant jugular venous distention. Chest: Auscultation of the chest reveals a few expiratory wheezes, clearly better in the last 24 hours. Cardiac Exam: Reveals an irregular rate and rhythm without appreciable murmur or gallop. There is no evidence of peripheral edema. LABORATORY DATA: There is no evidence of peripheral edema. IMPRESSION: 1. Persistent cough and wheezing with bronchospasm evident. Suspect acute bronchitis. She is clinically improving. 2. Paroxysmal atrial fibrillation with recurrent atrial fibrillation. 3. Non-Hodgkin's lymphoma, stage IV. Requiring maintenance chemotherapy. 4. Type 2 diabetes mellitus. 5. Hypertension. 6. Chronic kidney disease. 7. Chronic edema. RECOMMENDATIONS: 1. Continue flecainide at 100 mg p.o. b.i.d. 2. Continue anticoagulation with Eliquis. 3. Continue rate control with oral Cardizem. 4. She appears to have had a favorable response to corticosteroids, although glucose is elevated. Will continue lower dose corticosteroids as tolerated and insulin sliding-scale insulin. cc: MD Loc Leigh MD
[2018-07-06] MEDS: TYLENOL PO PRN (15:09)
[2018-07-06] MEDS: SOLU-MEDROL IV SCH (15:09)
[2018-07-06] MEDS ORDERED: GLUCOPHAGE PO SCH (21:00)
[2018-07-06] MEDS ORDERED: LYRICA PO SCH (21:00)
[2018-07-07] MEDS: SOLU-MEDROL IV SCH (02:56)
--- NOTE | 2018-07-07 04:46 | PROGRESS NOTE ---
DATE: 07/06/2018 SUBJECTIVE: The patient is a little better. Complains of left knee pain. Jenaro was taken out. Patient was in the bed, with a lot of stooling noted. No other complaints. PHYSICAL EXAMINATION: Vital Signs: Temperature is 98 degrees, pulse is 66, blood pressure is 136/58. On nasal cannula, 98%. I's and O's of -580 mL. HEENT: Within normal limits. Chest: Clear. Heart: Sounds are irregular. Abdomen: Belly is soft, nontender. ASSESSMENT AND PLAN: 1. Acute decompensated diastolic heart failure. Persistent atrial fibrillation. Continue rate control, diuresis, Eliquis, and flecainide. 2. Cellulitis of both legs, improving with Levaquin. 3. Left knee pain due to osteoarthritis. Patient requesting for x-ray of the left knee follow up. 4. Reconcile home medications. With chronic pain, on Lyrica. Increase the patient for ambulation. If she is stable, will discharge in the morning. 5. Type 2 diabetes, on Glucophage, slightly worsening, with steroids. Continue to monitor. cc: Loc Rodríguez MD
[2018-07-07] MEDS: SYNTHROID PO SCH (06:11)
[2018-07-07] MEDS: HUMULIN R SUBQ SCH ×2 (06:11→11:19)
[2018-07-07] MEDS ORDERED: SYNTHROID PO SCH (07:00)
[2018-07-07] MEDS ORDERED: PRILOSEC PO SCH (07:00)
[2018-07-07] MEDS: XOPENEX NEB INH SCH ×2 (07:39→11:16)
[2018-07-07] MEDS: ELIQUIS PO SCH (08:20)
[2018-07-07] MEDS: LEVAQUIN 500 MG/D5W 500 MG/100 ML IVPB IV SCH (08:20)
[2018-07-07] MEDS: XANAX PO SCH (08:20)
[2018-07-07] MEDS: CARDIZEM PO SCH (08:20)
[2018-07-07] MEDS: LASIX PO SCH (08:21)
[2018-07-07] MEDS: KLOR-CON PO SCH (08:21)
[2018-07-07] MEDS: ZYLOPRIM PO SCH (08:21)
[2018-07-07] MEDS: TAMBOCOR PO SCH (08:21)
[2018-07-07 11:02] VITALS: BP 119/70
--- NOTE | 2018-07-09 09:49 | DISCHARGE SUMMARY ---
ADMISSION DATE: 07/01/2018 DISCHARGE DATE: 07/07/2018 DISCHARGING DIAGNOSES: 1. Acute decompensated diastolic heart failure due to chronic atrial fibrillation. 2. Cellulitis of both legs. 3. Atypical chest pain. Last stress test was done in 2010. 4. Type 2 diabetes. 5. Hiatal hernia. 6. Hypertension. 7. Gout. 8. Hypothyroidism. 9. Chronic lymphedema of leg on the left side. 10. Non-Hodgkin's lymphoma, stage IV since 2005. Under chemotherapy. 11. Port-A-Cath on the right side. 12. Nontoxic multinodular goiter. 13. Status post thyroidectomy. 14. Bilateral knee replacement with osteoarthritis on the left knee. CONSULTATIONS: Pedrito Newsome MD. BRIEF HISTORY: Please see the history and physical that was done on 06/30/2018. In brief, she is a 78-year-old white female with the above problems, recently admitted to [facility]. She came in with cough and congestion, shortness of breath, wheezing, swelling of feet. She also has superimposed bronchitis along with decompensated diastolic heart failure with atrial fibrillation. The patient had a workup done in [facility]. Dr. Newsome was consulted. The patient was given oxygen, bronchodilators, steroids, IV antibiotics along with IV Lasix. She has substantial swelling in both feet and also cellulitis. Patient remains in atrial fibrillation. Recommended rate control with anticoagulation. The patient got better. Eason was discontinued. LABORATORIES: CBC: White cell count 3, hematocrit 31, platelets 210,000. SMA7: Sodium 143, potassium 3.6, chloride 99, BUN 17, creatinine 1.1, glucose 133. Liver function tests were normal. Urine cultures, mixed evan. IMAGING: Chest x-ray: Port-A-Cath on the right side. Tiny pleural effusion. X-ray of left knee, status post total knee arthroplasty. Subcutaneous edema. Calcification in soft tissues anterior to the proximal tibia. No evidence of acute bony disease. DISCHARGE INSTRUCTIONS: The patient was discharged home in a stable condition with the following instructions: 1. Initiate vaccination protocol. As per the hospital, patient told she is up-to-date on booster dose of pneumonia vaccine as well as flu vaccine at [facility]. 2. Allopurinol 300 daily, Prilosec 40 daily, metformin 500 daily. Probiotic 1 tablet daily. Lasix 40 daily. Ventolin HFA q.6h as needed. Xanax 0.25 t.i.d. Lyrica 25 daily. Eliquis 500 mg p.o. b.i.d. Pletal 900 p.o. b.i.d. Synthroid 125 daily. Levaquin 500 daily. Potassium 10 mEq daily. 3. Follow up in my office in 2 weeks as well as Dr. Pedrito Newsome. Patient is going to see Dr. Rodgers for follow up on non-Hodgkin's lymphoma. cc: MD Pedrito Ramírez MD
== END 2018-07-07 12:29 | disposition home health service (06) | DRG 291 ==
LOC: ED 17:01 → SUATTDRO 07-01 06:03 → EDIPHOLD 07-01 06:03 → 3S 07-01 13:04
PROVIDERS: ADMIT Internal Medicine; ATTEND Internal Medicine
CPT/HCPCS: 36415; 51702; 71010; 71020; 71045; 71046; 73562; 80048; 80053; 81001; 82607; 82728; 82746; 82948; 83036; 83540; 83550; 83735; 83880; 84436; 84443; 85025; 87088; 93005; 93010; 93306; 94640; 94761; 96372; 96374; 97110; 97116; 97162; 99285; A9270; J1644; J1815; J1940; J1956; J2920; J2930; XXXXX

== ENCOUNTER 2018-07-12 09:50 | Inpatient (IN) ==
[2018-07-12] MEDS ORDERED: GLUCAGON IV ONE ×2 (09:55→10:40)
[2018-07-12] MEDS ORDERED: CALCIUM GLUCONATE IV PUSH ONE (09:58)
[2018-07-12] MEDS ORDERED: DUONEB (A & A) INH ONE ×2 (09:59→11:11)
[2018-07-12] MEDS ORDERED: NS SQ ONE ×2 (10:20→10:50)
[2018-07-12] MEDS ORDERED: GLUCAGON SQ ONE ×2 (10:20→10:50)
[2018-07-12] MEDS ORDERED: NS 1,000 ML ONE ×2 (10:22→21:22)
[2018-07-12] MEDS ORDERED: ATROPINE IV ONE (10:23)
[2018-07-12] MEDS ORDERED: ATROPINE SYRINGE ONE (10:23)
--- NOTE | 2018-07-12 10:24 | EKG Report ---
Test Performed on : 07/12/2018 09:58:40 AM Test Reason : BRADYCARDIA Blood Pressure : / mmHG Vent. Rate : 034 BPM Atrial Rate : 035 BPM P-R Int : 000 ms QRS Dur : 160 ms QT Int : 600 ms P-R-T Axes : 000 092 007 degrees QTc Int : 451 ms Idioventricular rhythm. Right bundle branch block Abnormal ECG When compared with ECG of 03-JUL-2018 08:02, Idioventricular rhythm. has replaced Atrial fibrillation. Vent. rate has decreased BY 90 BPM Unconfirmed Result
[2018-07-12 10:26] LABS: BASO# 0.01 X1000 (0.0-0.2); BASO% 0.1 % (0.0-0.8); EOS# 0.02 X1000 (0.0-0.7); EOS% 0.2 % (0.0-10.0); HEMATOCRIT 32.8 % (37.0-47.0); HEMOGLOBIN 10.6 g/dL (12.0-16.0); IMM GRAN% 0.9 % (0.0-0.5); LYMPH# 1.68 X1000 (1.2-3.4); LYMPH% 15.8 % (20.5-51.1); MCH 36.3 PG (27-31); MCHC 32.3 g/dL (33-37); MCV 112.3 FL (81-99); MONO# 0.84 X1000 (0.11-0.59); MONO% 7.9 % (1.7-9.3); MPV 10.8 FL (7.4-10.4); NEUT# 7.98 X1000 (1.4-6.5); NEUT% 75.1 % (42.2-75.2); PLT 214 X1000 (130-400); RBC 2.92 XMIL (4.2-5.4); RDW 14.4 % (11.5-14.5); WBC 10.63 X1000 (4.8-10.8)
[2018-07-12] MEDS ORDERED: ZOFRAN IV ONE (10:32)
[2018-07-12] MEDS ORDERED: ZOFRAN ONE (10:33)
[2018-07-12] MEDS ORDERED: NS 1,000 ML IV ONE (10:36)
[2018-07-12] MEDS ORDERED: DOPAMINE 800 MG/D5W 800 MG/500 ML IV.SOLN ONE (10:37)
[2018-07-12] MEDS ORDERED: GLUCAGON SUBQ ONE (10:39)
[2018-07-12 10:45] LABS: INR 1.6; PROTIME 20.3 Seconds (11.0-16.0)
[2018-07-12] MEDS ORDERED: DOPAMINE 400 MG/D5W 400 MG/500 ML IV.SOLN IV SCH (10:45)
[2018-07-12 10:46] LABS: PTT 31.4 Seconds (22.3-41.8)
[2018-07-12 11:04] LABS: ALLEN TEST NO; BLOOD TYPE ARTERIAL; HCO3-(ACT) 25.7 mmoll (20.0-26.0); METHB 0.4 % (0.0-1.5); O2(CT) 14.4 mL/dL (15.0-23.0); O2HB 96.6 % (95.0-99.0); PO2(98.6) 146 mmHg (60-100); SAMPLE BLOOD; SAO2 99.3 % (95.0-100.0); THB 10.4 g/dL (11.5-17.4); pH(98.6) 7.28 (7.35-7.45)
[2018-07-12 11:05] LABS: MODALITY CANNULA
[2018-07-12 11:06] LABS: PCO2(98.6) 61 mmHg (35-45)
--- NOTE | 2018-07-12 11:08 | Diag Imaging Result Doc PS360 ---
EXAM: CHEST-PORTABLE 07/12/2018 HISTORY: BRADYCARDIA TECHNIQUE: AP portable at 1041 COMMENT: The inspiration is better than on 07/04/2018. The heart size is slightly larger and the pulmonary vascularity is more prominent. There is some questionable atelectasis in the right base. IMPRESSION: Cardiomegaly and right lower lobe atelectasis. Electronically signed by Raul Rodriguez 07/12/2018 11:06 AM
[2018-07-12] MEDS ORDERED: SODIUM CHLORIDE 0.9% INJ ONE (11:15)
[2018-07-12] MEDS ORDERED: PHENERGAN IV ONE (11:15)
[2018-07-12 11:19] LABS: ALB/GLOB RATIO 1.7; ALBUMIN 3.4 g/dL (3.5-5.0); CALCIUM 8.9 mg/dL (8.8-10.2); MAGNESIUM 1.6 mg/dL (1.5-2.7); POTASSIUM 4.7 mmol/L (3.5-5.1); TOTAL BILIRUBIN 0.21 mg/dL (0.20-1.00); TOTAL PROTEIN 5.4 g/dL (6.3-8.3)
[2018-07-12] MEDS ORDERED: EPINEPHRINE 4 MG in NS 250 ML IV SCH (12:00)
--- NOTE | 2018-07-12 12:45 | PROVIDER DOCUMENTATION ---
This chart was entered by Juli Hernandez Scribe, acting as scribe for Torres Blue MD. HPI-Respiratory General - General Stated Complaint: bradycardia Time Seen by Provider: 07/12/18 09:52 Source: patient Allergies/Adverse Reactions: Patient Allergies Allergy/AdvReac Type Severity Reaction Status Date / Time Iodinated Contrast- Oral and Allergy ITCHING Verified 07/12/18 10:53 IV Dye morphine Allergy ITCHING Verified 07/12/18 10:53 Home Medications: Home Medication List Medication Instructions Recorded Confirmed Last Taken Type Allopurinol 300 mg PO DAILY 09/08/14 07/01/18 1 Day Ago History ~06/30/18 Metformin [Glucophage] 500 mg PO QHS 09/08/14 07/01/18 2 Days Ago History ~06/29/18 Omeprazole [Prilosec] 40 mg PO DAILY@0700 09/08/14 07/01/18 1 Day Ago History ~06/30/18 Furosemide 40 mg PO DAILY 04/06/17 07/01/18 1 Day Ago History ~06/30/18 Lactobacillus Rhamnosus GG 1 each PO DAILY 04/06/17 04/11/17 04/10/17 08:00 History [Probiotic] Albuterol Sulfate Inhaler 1 puff INH PRN PRN 07/01/18 07/01/18 Unknown History [Ventolin Hfa] Alprazolam [Xanax] 0.25 mg PO TID 07/01/18 07/01/18 Unknown History Pregabalin [Lyrica] 25 mg PO QHS 07/04/18 07/04/18 Unknown History Apixaban [Eliquis] 5 mg PO BID #60 tab 07/07/18 Unknown Rx Flecainide [Tambocor] 100 mg PO BID #60 tab 07/07/18 Unknown Rx Levofloxacin [Levaquin] 500 mg PO DAILY #7 tab 07/07/18 Unknown Rx Levothyroxine [Synthroid] 125 microgm PO DAILY@0700 #90 tab 07/07/18 Unknown Rx Potassium Chloride E.r. [Micro-K] 10 meq PO DAILY #90 cap 07/07/18 Unknown Rx - History of Present Illness-Resp Nature of Presenting Problem: 78yof via EMS with hx of asthma, lymphoma, diabetes, HTN, CHF, and hypothyroidism presents with bradycardia in the 30's, sob, and weakness since one hour prior to arrival. She reports she had a syncopal episode this morning with brief loc. The patient reports that she called EMS for sob and weakness this morning. The patient's daughter reports that the patient was recently hospitalized for CHF. She denies pain or discomfort currently. The patient's , daughter, and [id number] are at bedside. Quality of Pain: reports: none Severity in ED: reports: moderate Onset/Duration: reports: this morning (one hour prior to arrival) Timing: reports: still present, constant Cough Quality/Degree: reports: no cough Current Respiratory Medication Therapy: Initiated see nurses note Modifying Factors: improves with: nothing Associated Symptoms: reports: shortness of breath. denies: chest pain/soreness , fever/chills Similar Symptoms Previously?: No Recently seen or treated by another doctor?: No Review of Systems - Adult - REVIEW OF SYSTEMS - ADULT Constitutional: denies: chills, fever Eyes: denies: discharge, dry eyes Ears, Nose, Mouth & Throat: denies: ear discharge, ear pain Cardiovascular: reports: other (bradycardia). denies: chest pain, palpitations Respiratory: reports: shortness of breath. denies: cough Gastrointestinal: denies: abdominal pain, diarrhea Genitourinary: denies: dysuria, hematuria Musculoskeletal: denies: back pain, muscle aches, muscle weakness Integumentary: reports: no symptoms reported Neurological: denies: dizziness/vertigo, headache/migraines Psychiatric: reports: no symptoms reported Endocrine: reports: no symptoms reported Hematologic/Lymphatic: reports: no symptoms reported Allergic/Immunologic: reports: no symptoms reported All Other Systems: Reviewed and Negative Past History - Adult - PAST MEDICAL HISTORY-ADULT Review of Records: reports: Old Records Reviewed, Nursing Assessment Review, Medications Reviewed Major Childhood Illnesses: reports: denies history Cardiovascular: reports: HTN, hyperlipidemia Respiratory: reports: asthma Gastrointestinal: reports: GERD Obstetrical/Gynecological: reports: denies history Genitourinary: reports: denies history Musculoskeletal: reports: denies history Neurological: reports: denies history Endocrine/Immune: reports: Diabetes, thyroid disorder Other Conditions: reports: denies history - PRIOR SURGERIES/PROCEDURES Surgical/Procedure History: reports: cholecystectomy, hysterectomy, orthopedic ( extremity) (knee replacement) - IMMUNIZATION STATUS Childhood Immunizations: See Nurse Assessment Flu Vaccine: See Nurse Assessment - FAMILY HISTORY Family History: reviewed, not pertinent - SOCIAL HISTORY Smoking: other (former) Substance Use: denies Living Situation: family Physical Exam-General - PHYSICAL EXAM-ADULT Initial Vital Signs Reviewed: Yes - CONSTITUTIONAL General Appearance: alert, other (pt appears fatigued) - EYES Eyes: PERRL/EOMI, pink conjunctivae - HEAD, EARS, NOSE, MOUTH & THROAT HENMT: normocephalic/atraumatic, moist mucous membranes - NECK Neck: non-tender, supple - RESPIRATORY Respiratory: lungs clear. negative: rales, rhonchi, wheezing - CARDIOVASCULAR Cardiovascular: no gallop, no murmur, bradycardia - GASTROINTESTINAL (ABDOMEN) Abdominal Exam: non tender, soft - MUSCULOSKELETAL Extremity: non-tender, swelling (LLE/RLE, poor lymphatic draining) - SKIN Integumentary: normal color, warm/dry. negative: cyanosis - NEUROLOGIC Neurologic: grossly normal, no motor/sensory deficits - PSYCHIATRIC Psych/Mental Status: normal mood/affect, normal thought content, normal thought process, oriented x 3 Progress - PLAN OF CARE/RESULTS Progress/Plan/Lab Results: Vital Signs - 8 hr 07/12/18 10:20 07/12/18 10:35 07/12/18 10:40 Temperature 98 F Pulse Rate 33 L 42 L 33 L Respiratory Rate 18 18 18 Blood Pressure 68/32 98/35 143/72 O2 Sat by Pulse Oximetry 99 100 99 07/12/18 10:45 07/12/18 10:48 07/12/18 11:36 Temperature 98 F Pulse Rate 41 L 42 L 32 L Respiratory Rate 16 20 18 Blood Pressure 108/47 80/35 O2 Sat by Pulse Oximetry 0 L 96 96 07/12/18 11:46 07/12/18 12:09 Temperature Pulse Rate 39 L 48 L Respiratory Rate 18 18 Blood Pressure 119/60 O2 Sat by Pulse Oximetry 94 L 07/12/18 10:18 Influenza Screen - Final Nasopharyngeal Laboratory Results - last 24 hr 07/12/18 07/12/18 07/12/18 10:15 10:15 10:15 WBC 10.63 RBC 2.92 L Hgb 10.6 L Hct 32.8 L MCV 112.3 H MCH 36.3 H MCHC 32.3 L RDW Std Deviation 14.4 Plt Count 214 MPV 10.8 H Immature Gran % (Auto) 0.9 H Neut % (Auto) 75.1 Lymph % (Auto) 15.8 L [place] % (Auto) 7.9 Eos % (Auto) 0.2 Baso % (Auto) 0.1 Immature Gran # (Auto) 0.10 H Neut # (Auto) 7.98 H Lymph # (Auto) 1.68 [place] # (Auto) 0.84 H Eos # (Auto) 0.02 Baso # (Auto) 0.01 PT 20.3 H INR 1.60 PTT (Actin FS) 31.4 Specimen Type Sample Site pH pCO2 pO2 HCO3 Base Excess Oxyhemoglobin ABG O2 Sat (Calculated) ABG O2 Saturation ABG Carboxyhemoglobin ABG Methemoglobin Jeffry Test A-a O2 Difference Total Hemoglobin Lactate Liter Flow Blood Gas Modality FiO2 % Sodium 139 Potassium 4.7 Chloride 96 L Carbon Dioxide 27 Anion Gap 16 BUN 65 H Creatinine 3.0 H Estimated GFR/1.73 m2 15 BUN/Creatinine Ratio 22 Glucose 178 H Calculated Osmolality 301 Calcium 8.9 Magnesium 1.6 Total Bilirubin 0.21 AST 156 H ALT 71 H Alkaline Phosphatase 91 Creatine Kinase 27 Troponin T [id number] Pept Total Protein 5.4 L Albumin 3.4 L Globulin 2.0 Albumin/Globulin Ratio 1.7 Plasma Lactate 07/12/18 07/12/18 07/12/18 10:15 10:15 10:15 WBC RBC Hgb Hct MCV MCH MCHC RDW Std Deviation Plt Count MPV Immature Gran % (Auto) Neut % (Auto) Lymph % (Auto) [place] % (Auto) Eos % (Auto) Baso % (Auto) Immature Gran # (Auto) Neut # (Auto) Lymph # (Auto) [place] # (Auto) Eos # (Auto) Baso # (Auto) PT INR PTT (Actin FS) Specimen Type Sample Site pH pCO2 pO2 HCO3 Base Excess Oxyhemoglobin ABG O2 Sat (Calculated) ABG O2 Saturation ABG Carboxyhemoglobin ABG Methemoglobin Jeffry Test A-a O2 Difference Total Hemoglobin Lactate Liter Flow Blood Gas Modality FiO2 % Sodium Potassium Chloride Carbon Dioxide Anion Gap BUN Creatinine Estimated GFR/1.73 m2 BUN/Creatinine Ratio Glucose Calculated Osmolality Calcium Magnesium Total Bilirubin AST ALT Alkaline Phosphatase Creatine Kinase Troponin T 0.013 [id number]-Fhnmefvhlcf Pept 80945 H Total Protein Albumin Globulin Albumin/Globulin Ratio Plasma Lactate 2.9 H 07/12/18 10:55 WBC RBC Hgb Hct MCV MCH MCHC RDW Std Deviation Plt Count MPV Immature Gran % (Auto) Neut % (Auto) Lymph % (Auto) [place] % (Auto) Eos % (Auto) Baso % (Auto) Immature Gran # (Auto) Neut # (Auto) Lymph # (Auto) [place] # (Auto) Eos # (Auto) Baso # (Auto) PT INR PTT (Actin FS) Specimen Type ARTERIAL Sample Site R BRACHIAL pH 7.28 L pCO2 61 H* pO2 146 H HCO3 25.7 Base Excess 1.0 Oxyhemoglobin 96.6 ABG O2 Sat (Calculated) 14.4 L ABG O2 Saturation 99.3 ABG Carboxyhemoglobin 2.30 ABG Methemoglobin 0.4 Jeffry Test NO A-a O2 Difference 6.0 Total Hemoglobin 10.4 L Lactate 1.70 Liter Flow 3.0 Blood Gas Modality CANNULA FiO2 % 32.0 Sodium Potassium Chloride Carbon Dioxide Anion Gap BUN Creatinine Estimated GFR/1.73 m2 BUN/Creatinine Ratio Glucose Calculated Osmolality Calcium Magnesium Total Bilirubin AST ALT Alkaline Phosphatase Creatine Kinase Troponin T Tvg-[id number]-Xebavsiwziu Pept Total Protein Albumin Globulin Albumin/Globulin Ratio Plasma Lactate Orders Category Date Time Status Nursing- MD Consult Request ROUTINE Care 07/12/18 12:40 Active Nursing- Obtain EKG once Care 07/12/18 09:59 Active MD [Physician/Provider Consults] Routine Cons 07/12/18 12:[address] HEAD W/O CONTRAST [CT] Stat Exams 07/12/18 12:28 Ordered cxr [CHEST-PORTABLE] [RAD] Stat Exams 07/12/18 10:00 Completed ABG [RESP] Routine Lab 07/12/18 10:55 Completed CBC WITH ELECTRONIC DIFF [HEME] Stat Lab 07/12/18 10:15 Completed CK PROFILE [SP CHEM] Stat Lab 07/12/18 10:15 Completed COMPREHENSIVE METABOLIC PANEL [CHEM] Stat Lab 07/12/18 10:15 Completed INFLUENZA SCREEN A/B Stat Lab 07/12/18 10:18 Completed LACTATE, PLASMA [CHEM] Stat Lab 07/12/18 10:15 Completed LACTATE, PLASMA [CHEM] Stat Lab 07/12/18 11:46 Uncollected MAGNESIUM [CHEM] Stat Lab 07/12/18 10:15 Completed PROTIME WITH INR [COAG] Stat Lab 07/12/18 10:15 Completed PTT [COAG] Stat Lab 07/12/18 10:15 Completed TROPONIN T Stat Lab 07/12/18 10:15 Completed TROPONIN T Stat Lab 07/12/18 11:46 Ordered URINALYSIS W/POSS RFLX CULT [URINALYSIS] Stat Lab 07/12/18 10:00 Uncollected pro-bnp [PRO B-NATRIURETIC PEPTIDE] Stat Lab 07/12/18 10:15 Completed 0.9% Sodium Chloride Inj [Ns] 1,000 ml Med 07/12/18 10:22 Discontinued .ROUTE As Directed 0.9% Sodium Chloride Inj [Ns] 1,000 ml Med 07/12/18 10:36 Discontinued IV 999 mls/hr 0.9% Sodium Chloride Inj [Ns] 250 ml Med 07/12/18 12:00 Active Epinephrine 4 mg IV As Directed Albuterol 2.5MG/Ipratrop 0.5MG [Duoneb (A & A)] Med 07/12/18 09:59 Discontinued 3 ml INH NOW ONE Albuterol 2.5MG/Ipratrop 0.5MG [Duoneb (A & A)] Med 07/12/18 11:11 Discontinued 3 ml INH NOW ONE Atropine Med 07/12/18 10:23 Discontinued 0.5 mg IV NOW ONE Atropine Syringe Med 07/12/18 10:23 Discontinued 1 mg .ROUTE .STK-MED ONE Calcium Gluconate Med 07/12/18 09:58 Discontinued 1 gm IV PUSH NOW ONE Dopamine 400 mg/D5w Med 07/12/18 10:45 Active 400 mg in 500 ml IV As Directed Dopamine 800 mg/D5w Med 07/12/18 10:37 Discontinued 800 mg in 500 ml .ROUTE As Directed Glucagon Med 07/12/18 10:39 Discontinued 1 mg SUBQ NOW ONE Glucagon Med 07/12/18 10:40 Discontinued 5 mg IV NOW ONE Glucagon 5 mg Med 07/12/18 10:20 Discontinued 0.9% Sodium Chloride Inj [Ns] 50 ml SQ ONCE Glucagon 5 mg Med 07/12/18 10:50 Discontinued 0.9% Sodium Chloride Inj [Ns] 50 ml SQ ONCE Ondansetron [Zofran] Med 07/12/18 10:33 Discontinued 8 mg .ROUTE .STK-MED ONE Ondansetron [Zofran] Med 07/12/18 10:32 Discontinued 8 mg IV NOW ONE Promethazine [Phenergan] Med 07/12/18 11:15 Discontinued 25 mg IV NOW ONE Sodium Chloride 0.9% Med 07/12/18 11:15 Discontinued 10 ml INJ NOW ONE Aerosol Treatments Routine Oth 07/12/18 09:59 Completed Aerosol Treatments Routine Oth 07/12/18 11:11 Completed Aerosol Treatments Stat Oth 07/12/18 09:59 Completed Aerosol Treatments Stat Oth 07/12/18 11:11 Completed BIPAP Stat Oth 07/12/18 11:12 Active EKG [EKG] Routine Ther 07/13/18 06:00 Ordered EKG [EKG] Stat Ther 07/12/18 09:59 Draft At 10:30, patient became nauseated and vomiting in the patient room Result Diagrams: 07/12/18 10:15 07/12/18 10:15 - REASSESSMENT Reassessment #1 Status: improving (APPRECAITE DR. PENA'S ASSISTANCE; WILL MONITOR PATIENT IN ICU. WILL TALK TO DR. CUETO FOR ADMISSION.) Reassessment #2 Time Reassessed: 12:42 Status: improving (SPOKE TO DR. CUETO. CURRENTLY PENDING CT OF HEAD. PATIENT INITAL LACTATE AND CREATININE ELEVATED LIKELY 2/2 TO UNDERPERFUSION; WHICH I WILL REPEAT. HOWEVER, GIVEN THAT PATIENT'S BLOOD PRESSURE IS STABLE IN 110/70S ; EXPECT IMPROVING IN LACTATE.) - EKG 1 Time of EKG reading by physician:: 09:59 EKG Read and Signed by:: Torres Blue EKG Interpretation (*Must complete 3 of following elements*): Abnormal Rate: 34 Rhythm: Idioventricular rhythm Taylor: normal QRS: RBB - XRAY 1 XRAY Study: Chest Impression: Abnormal (COMMENT: The inspiration is better than on 07/04/2018. The heart size is slightly larger and the pulmonary vascularity is more prominent. There is some questionable atelectasis in the right base. IMPRESSION: Cardiomegaly and right lower lobe atelectasis.) Departure - Departure Date of Disposition Decision: 07/12/18 Time of Disposition Decision: 12:44 DIAGNOSIS: Accidental medication overdose, Bradycardia, Hypotension, CHF exacerbation, Pulmonary edema DIAGNOSIS: (Ruled Out): CHF (congestive heart failure) Disposition: ADMITTED INPATIENT 09 Certified Medical Emergency: Emergent Condition: Critical Additional Freetext Instructions: ED Follow Up Instructions: You have been treated by a care provider in the Emergency Department. These instructions are being provided to you so you can have an understanding of how to care for yourself upon discharge. Upon discharge from the Emergency Department, you are responsible for making arrangements for follow-up care by a physician of your choice. Take all prescribed medications as directed. Return to the Emergency Department immediately for any new or worsening symptoms. You may call the Physician Referral phone number at [phone] to obtain a list of Physicians who are taking new patients. Referrals and Follow-Ups: Naomi Cueto MD [Primary Care Provider] - - Critical Care Note This patient required my direct & personal management of CC.: Yes Total Time (mins): 110 Critical Care Statement: This patient required my direct personal management to treat or rule out processes, the absence of which, could potentiallly result in sudden, clinically significant life or limb threatening deterioration. Attestation - Physician/ GULSHAN Attestation Patient care was provided by Advanced Practice Provider:: No The physician spent face to face time with patient:: Yes Advanced Practice Provider documentation review:: Supervising physician onsite and consulted in the evaluation and care of this patient. The physician did have a face to face encounter with the patient. This chart was documented by the indicated scribe, (Juli Hernandez Scribmiladys) and accurately reflects the services I performed and decisions made by me, Torres Blue MD, as attested by the provider's signature.
--- NOTE | 2018-07-12 13:09 | Diag Imaging Result Doc PS360 ---
EXAM: CT HEAD W/O CONTRAST 07/12/2018 HISTORY: ams TECHNIQUE: This exam was performed using automated exposure control, adjustment of mA or kV according to patient size, and/or use of iterative reconstruction technique. COMMENT: There are calcifications in the globus pallidus bilaterally. There is no evidence of mass effect, bleed, or abnormal extra-axial fluid collection. The calvarium is intact. The visualized paranasal sinuses are largely clear with a minimal degree of mucosal thickening in the right maxillary sinus. There are no previous studies available for comparison. IMPRESSION: Chronic right maxillary sinusitis. No evidence of acute intracranial disease. Electronically signed by Raul Rodriguez 07/12/2018 1:07 PM
[2018-07-12 13:39] LABS: URINE SOURCE CATH
[2018-07-12 13:48] LABS: BILIRUBIN URINE NEGATIVE (NEGATIVE); BLOOD URINE NEGATIVE (NEGATIVE); COLOR YELLOW; GLUCOSE URINE NEGATIVE (NEGATIVE); KETONE URINE NEGATIVE (NEGATIVE); LEUKOCYTES URINE NEGATIVE (NEGATIVE); NITRITE URINE NEGATIVE (NEGATIVE); PH URINE 5.5; PROTEIN URINE 30 mg/dL (NEGATIVE); SP GRAVITY URINE 1.008; TURBIDITY URINE CLEAR (CLEAR); UROBILINOGEN URINE NORMAL (NORMAL)
[2018-07-12 13:49] LABS: UR EPITHELIAL CELLS <10 /HPF (<10); URINE BACTERIA NEGATIVE /HPF; URINE RBC <10 /HPF (<10); URINE WBC <10 /HPF (<10)
[2018-07-12] MEDS ORDERED: LOVENOX SUBQ SCH (21:30)
[2018-07-12] MEDS ORDERED: LASIX IV ONE (22:45)
--- NOTE | 2018-07-12 23:17 | HISTORY AND PHYSICAL ---
CHIEF COMPLAINT: Bradycardia, altered mental status, low blood pressure. HISTORY OF PRESENT ILLNESS: She is a 78-year-old white female who was brought in by the family by ambulance with bradycardia (heart rate is 30), shortness of breath, weakness, upon arrival. The patient has prerenal azotemia. The patient was seen in the emergency room. The patient as seen by Dr. Newsome. The patient was on BiPAP. The patient was started on dopamine drip, atropine, and heart rate is coming up around 40. Blood pressure is stable. Eason was placed. The patient continues to have junctional and apparently she has sick sinus syndrome. She needs long-term permanent pacemaker. Waiting to be admitted in ICU. The patient was seen in the emergency room. Discussed along with the family members the plan of care and also Dr. Newsome. PAST MEDICAL HISTORY: Atrial fibrillation, last cardiac stress test negative 2010, type 2 diabetes, hiatal hernia, hypertension, gout, hypothyroidism, chronic lymphedema in the left leg, non-Hodgkin lymphoma stage IV, multinodular nontoxic goiter. PAST SURGICAL HISTORY: Thyroidectomy, cholecystectomy, hysterectomy, back surgery, bilateral knee replacement, Port-A-Cath on the right side. MEDICATIONS: Advair 100/50 one puff b.i.d., allopurinol 100 twice daily, flecainide 100 t.i.d. furosemide 40 mg daily, levothyroxine 125 daily, metformin 500 daily, metoprolol ER 50 b.i.d., Prilosec 40 daily, Singulair 10 daily, ProAir as needed, Xanax 0.25 twice daily. ALLERGIES: Morphine, IVP dye. SOCIAL HISTORY: , 3 children. Single. No smoking, no alcohol. FAMILY HISTORY: Father of [place] at 62. Mom of ruptured gallbladder. HEALTH MAINTENANCE: Flu vaccine 06/2008. Pneumococcal vaccine 2019. Mammography 11/2016. Colonoscopy 11/2003. Last stress test 2010. REVIEW OF SYSTEMS: Unable to obtain. The patient is obtunded on BiPAP machine. PHYSICAL EXAMINATION: VITAL SIGNS: Heart rate is around 40. Blood pressure is stable now. GENERAL: BiPAP machine. Awake. LUNGS: Very poor air entry. HEART: Sounds are very distant. ABDOMEN: Belly is soft, nontender. Obese. GENITOURINARY: Eason was placed. EXTREMITIES: 1+ pedal edema. No focal deficits. Bilateral knee scars present. LABORATORIES: CBC: White cell count 10, hematocrit 32, platelets 214,000. PTT 20, INR 1.6. ABG: pH is 7.38, pCO2 of 61, pO2 of 146 on 32% on BiPAP machine. SMA-7: BUN 65, creatinine 3.0. ProBNP 15,000. Cardiac enzymes were negative. Urinalysis is clear. Flu test was negative. IMAGING STUDIES: CT head: Chronic microvascular ischemic changes, right maxillary sinusitis, nothing acute. ASSESSMENT AND PLAN: 1. A 78-year-old white female admitted to the hospital with bradycardia, hypotension, and prerenal azotemia due to sick sinus syndrome. 2. Atrial fibrillation, on flecainide and metoprolol. Discussed with Dr. Newsome. Atropine was given. Calcium gluconate was given. Continue on BiPAP machine. Atropine is bedside. We will check the labs and EKG in the morning. Waiting to be admitted in ICU. Plan of care is hold the beta blockers. Discussed about external transcutaneous pacing and also needs a permanent pacemaker once she is stable, and will follow up. cc: Loc Rodríguez MD [facility]
[2018-07-12] MEDS: PROTONIX IV SCH (23:54)
[2018-07-12] MEDS: SODIUM CHLORIDE 0.9% INJ SCH (23:54)
[2018-07-13] MEDS: DOPAMINE 800 MG/D5W 800 MG/500 ML IV.SOLN IV SCH ×2 (01:40→12:25)
[2018-07-13 05:14] LABS: ALLEN TEST YES; BE -0.6 mmoll (-3.0-3.0); BLOOD TYPE ARTERIAL; HCO3-(ACT) 24.5 mmoll (20.0-26.0); O2(CT) 16.8 mL/dL (15.0-23.0); O2HB 96.9 % (95.0-99.0); PCO2(98.6) 49 mmHg (35-45); PO2(98.6) 205 mmHg (60-100); SAMPLE BLOOD; SAO2 99.6 % (95.0-100.0); pH(98.6) 7.33 (7.35-7.45)
[2018-07-13 05:17] LABS: MODALITY BI PAP
--- NOTE | 2018-07-13 05:42 | CONSULTATION ---
DATE OF CONSULTATION: 07/12/2018 IMPRESSION: 1. Marked bradycardia with associated hypotension immediately after apparent conversion from atrial fibrillation back to sinus rhythm while on metoprolol. The patient has improved with intravenous dopamine and heart rate is now above 50 beats per minute with normalization of blood pressure. 2. Paroxysmal atrial fibrillation. During recent hospital stay, the patient had recurrent atrial fibrillation despite flecainide 50 mg p.o. b.i.d., and dose was increased to 100 mg p.o. b.i.d. She also had significant wheezing and bronchospasm and was temporarily switched from metoprolol to diltiazem. She was switched back to metoprolol at the time of discharge. It is not clear what her present metoprolol dose is. 3. Hypothyroidism. 4. Non-Hodgkin's lymphoma stage IV requiring maintenance chemotherapy via port in right subclavian site. 5. Diabetes mellitus type 2. 6. Hypertension. 7. Chronic kidney disease. 8. Chronic dependent edema. RECOMMENDATIONS: 1. ICU admission. 2. Continue intravenous dopamine as this appears to have stabilized her bradycardia and hypotension. 3. Hold metoprolol and allow heart rate to come up. 4. Continue flecainide at current dose. 5. Conservative cardiovascular plans. She does have apparent tendency for tachycardia/bradycardia syndrome. However, it would be preferable to see if we could manage her with mere reduction in metoprolol for now. HISTORY OF PRESENT ILLNESS: This is a 78-year-old white female with past history of paroxysmal atrial fibrillation, non-Hodgkin's lymphoma stage IV, receiving maintenance chemotherapy, hypertension, hypothyroidism, type 2 diabetes mellitus, and dependent edema was brought to the emergency room by ambulance today after she experienced syncope. She was just recently hospitalized here for dyspnea symptoms, and had prominent wheezing and bronchospasm evident. She was initially in sinus rhythm, but started having difficulty with recurrent paroxysms of atrial fibrillation. Flecainide dose was increased. Because of the wheezing she was switch from metoprolol to diltiazem. She was treated for bronchitis/bronchospasm, and received some corticosteroids as well as bronchodilators. She clinically improved and was discharged. At the time of discharge, she was still in atrial fibrillation with controlled rate. She had follow up with her primary physician Dr. Rodríguez yesterday. This morning her was getting ready to take her to [place] for lab data. She slumped over and experienced syncope. She seemed to come around a little bit and respond to verbal stimuli. EMS was summoned, and on their arrival she was found to have marked bradycardia and hypotension. She was brought to the emergency room for treatment. She has had some nausea and vomiting as well. In emergency room she was started on intravenous dopamine and as it was increased her heart rate finally came to near 50 beats per minute, and her blood pressure normalized. She received some Phenergan parenterally for nausea and vomiting, and is presently drowsy and unable to give much in the way of history. There was no report of chest pain. PAST MEDICAL HISTORY: 1. Paroxysmal atrial fibrillation. 2. Non-Hodgkin's lymphoma stage IV requiring maintenance chemotherapy. 3. Hypertension. 4. Hyperlipidemia. 5. Type 2 diabetes mellitus. 6. Obesity. 7. Hypothyroidism. 8. History of multinodular goiter. 9. Gout. 10. Dependent edema. 11. Hiatal hernia. 12. Chronic kidney disease. PAST SURGICAL HISTORY: Includes thyroid surgery for goiter, cholecystectomy, hysterectomy, unspecified back surgery, bilateral knee replacement surgery, and right chest Port-A-Cath placement. ALLERGIES: She is allergic or intolerant to morphine and IV contrast. MEDICATIONS PRIOR TO ADMISSION: As listed. Her medication list that her family has brought is somewhat confusing in that it less flecainide twice, and lists her metoprolol dose as 100 mg which is higher than what she had been on in the recent past. SOCIAL HISTORY: She is . She has 3 children. She is retired. She quit smoking 30 years ago. She does not use alcohol. FAMILY HISTORY: Positive for coronary disease. REVIEW OF SYSTEMS: Not reliably obtainable given the patient's sedation following Phenergan. PHYSICAL EXAMINATION: General: This is an obese elderly white female who is drowsy. Vital signs: Blood pressure 115/60, heart rate 50, oxygen saturation 98% on BiPAP. HEENT: Extraocular movements appear intact. Mucous membranes are moist. Neck: Supple without discernible jugular distention. There are no carotid bruits. Chest: Clear to auscultation. Cardiac: Reveals a regular rate and rhythm without appreciable murmur or gallop. Abdomen: Soft. Bowel sounds audible. Extremities: Without edema. LABORATORY DATA: Includes a white blood cell count of 10.63, hematocrit 32.8, hemoglobin 10.6, platelet count 214,000. Sodium 139, potassium 4.7, chloride 96, carbon dioxide 27, BUN 65, creatinine 3.0, albumin 3.4. ECG on arrival to the emergency room shows baseline artifact. Rhythm difficult to determine but probably marked sinus bradycardia with a right bundle branch block. cc: MD Loc Leigh MD
[2018-07-13 06:29] LABS: HEMATOCRIT 35.3 % (37.0-47.0); HEMOGLOBIN 11.8 g/dL (12.0-16.0); MCHC 33.4 g/dL (33-37); MCV 110.7 FL (81-99); MPV 10.9 FL (7.4-10.4); RBC 3.19 XMIL (4.2-5.4); RDW 14.3 % (11.5-14.5); WBC 9.1 X1000 (4.8-10.8)
[2018-07-13] MEDS: HUMALOG SUBQ SCH ×4 (06:45→21:07)
[2018-07-13 07:10] LABS: ALB/GLOB RATIO 1.2; ALBUMIN 3.5 g/dL (3.5-5.0); CALCIUM 8.5 mg/dL (8.8-10.2); CREATININE 3.5 mg/dL (0.5-0.9); POTASSIUM 5.5 mmol/L (3.5-5.1); TOTAL BILIRUBIN 0.23 mg/dL (0.20-1.00); TOTAL PROTEIN 6.4 g/dL (6.3-8.3)
--- NOTE | 2018-07-13 07:12 | Diag Imaging Result Doc PS360 ---
EXAM: CHEST-1 VIEW 07/13/2018 HISTORY: SOB TECHNIQUE: AP portable at 0522 COMMENT: There is increasing pleural fluid and pulmonary edema in both lung bases compared to 07/12/2018. The inspiration is less optimal than on the previous study. IMPRESSION: Worsened pulmonary edema and pleural effusions. Electronically signed by Raul Rodriguez 07/13/2018 7:10 AM
[2018-07-13] MEDS ORDERED: ELIQUIS PO SCH (09:00)
--- NOTE | 2018-07-13 09:47 | EKG Report ---
Test Performed on : 07/13/2018 06:49:39 AM Test Reason : bradycardia Blood Pressure : / mmHG Vent. Rate : 044 BPM Atrial Rate : 052 BPM P-R Int : 000 ms QRS Dur : 068 ms QT Int : 528 ms P-R-T Axes : 000 -09 006 degrees QTc Int : 451 ms Atrial fibrillation. with slow ventricular response. Right bundle branch block Low voltage QRS Abnormal ECG When compared with ECG of 13-JUL-2018 00:34, (Unconfirmed) No significant change was found Confirmed by Madhavi SMITH, Mervin Ngo ([id number]) on 07/15/2018 10:13:31 AM
[2018-07-13] MEDS ORDERED: 1/2 NS 500 ML IV SCH (10:00)
[2018-07-13] MEDS: TYLENOL PO PRN ×2 (10:15→17:36)
[2018-07-13] MEDS: 1/2 NS 1,000 ML IV SCH ×3 (10:16→19:30)
--- NOTE | 2018-07-13 10:35 | EKG Report ---
Test Performed on : 07/13/2018 00:31:16 AM Test Reason : cp Blood Pressure : / mmHG Vent. Rate : 159 BPM Atrial Rate : 107 BPM P-R Int : 000 ms QRS Dur : 092 ms QT Int : 180 ms P-R-T Axes : 000 170 173 degrees QTc Int : 292 ms Suspect arm lead reversal, interpretation assumes no reversal Idioventricular rhythm. Inferior-posterior infarct (cited on or before 12-JUL-2018) Anterolateral infarct , age undetermined Low voltage QRS Right bundle branch block pattern Abnormal ECG When compared with ECG of 12-JUL-2018 13:23, (Unconfirmed) No significant change was found Confirmed by Madhavi SMITH, Mervin Ngo ([id number]) on 07/15/2018 10:05:51 AM
--- NOTE | 2018-07-13 10:50 | EKG Report ---
Test Performed on : 07/13/2018 00:34:58 AM Test Reason : bradycardia Blood Pressure : / mmHG Vent. Rate : 048 BPM Atrial Rate : 000 BPM P-R Int : 000 ms QRS Dur : 200 ms QT Int : 160 ms P-R-T Axes : 000 000 156 degrees QTc Int : 143 ms Slow A-fib with RBBB vs. idioventricular rhythm Indeterminate axis Pulmonary disease pattern Nonspecific T wave abnormality Abnormal ECG When compared with ECG of 13-JUL-2018 00:32, (Unconfirmed) No significant change was found Confirmed by Madhavi SMITH, Mervin Ngo ([id number]) on 07/15/2018 10:10:28 AM
--- NOTE | 2018-07-13 13:48 | PROGRESS NOTE ---
DATE: 07/13/2018 SUBJECTIVE: Patient continues without chest discomfort or dyspnea on nasal cannula oxygen. Heart rate is improved, but she remains with bradycardia and heart rate in the 40 to 50 beat per minute range. In reviewing the medications her brought in, it is noted that her metoprolol dose was 100 mg twice daily. It would appear that her flecainide dose may have been 50 mg twice daily based on her pillbox. The former represents an increase in her previous dose of metoprolol. OBJECTIVE: Vital Signs: Blood pressure 132/53, heart rate 45. Patient currently still on intravenous dopamine. Oxygen saturation 100% on nasal cannula oxygen. There is no significant jugular venous distention. Chest is clear to auscultation. Cardiac exam reveals a regular bradycardia without appreciable murmur or gallop. There is no evidence of peripheral edema. LABORATORY DATA: White blood cell count of 9.1, hematocrit 35.3, hemoglobin 11.8, platelet count 225,000. Sodium 137, potassium 5.5, chloride 94, carbon dioxide 23. BUN 74, creatinine 3.5, glucose 150. IMPRESSION: 1. Marked bradycardia probably related to underlying sinus node dysfunction and aggravated by metoprolol. Patient experienced syncope, and this likely occurred as she transitioned from atrial fibrillation to sinus rhythm. She seems to be gradually improving. 2. Paroxysmal atrial fibrillation. It is noteworthy that the patient's atrial fibrillation has been with minimal if any symptoms at all. 3. Hypothyroidism. 4. Non-Hodgkin's lymphoma, stage IV requiring maintenance chemotherapy via port and right subclavian vein. 5. Diabetes mellitus, type 2. 6. Hypertension. 7. Chronic kidney disease. 8. Chronic dependent edema. RECOMMENDATIONS: 1. Continue intravenous heparin as needed. 2. Metoprolol stopped. Flecainide has been stopped. 3. 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 Further management of this was considered and, in light of the fact that she was asymptomatic in atrial fibrillation, it may be better to avoid aggressive measures to try and maintain sinus rhythm and allow her to remain in atrial fibrillation should this recur. I discussed her care with the Catalyst Unit Operator, Dr. Castano in [place], and he concurred. It is felt that we can manage her without need for permanent pacemaker given her comorbidities and chronic indwelling IV access which is being utilized on a regular basis. This was discussed with the patient's as well. cc: MD Loc Leigh MD
[2018-07-13] MEDS ORDERED: KAYEXALATE PO ONE (15:24)
[2018-07-13] MEDS: 1/2 NS 500 ML IV SCH ×2 (17:05→17:36)
[2018-07-13] MEDS: SODIUM CHLORIDE 0.9% INJ SCH (21:07)
[2018-07-13] MEDS: PROTONIX IV SCH (21:07)
--- NOTE | 2018-07-13 23:56 | ECHO REPORT ---
ORDER DATE: 07/13/2018 SUMMARY: 1. Limited 2-dimensional and limited Doppler echographic study performed. 2. Mild mitral annular calcification is demonstrated. The tricuspid valve is without evidence of structural abnormality. There is mild tricuspid regurgitation. The estimated systolic PA pressure by Doppler is 45 mmHg. 3. Estimated left ventricular ejection fraction at least 70% without regional wall motion abnormality evident. Left atrium is mildly enlarged. Right atrium is mildly enlarged. The right ventricle is mild to moderately enlarged with moderately reduced right ventricular systolic function. 4. No pericardial effusion. 5. Appearance of inferior vena cava suggests normal central venous pressure. cc: MD Loc Leigh MD
[2018-07-14] MEDS: DOPAMINE 800 MG/D5W 800 MG/500 ML IV.SOLN IV SCH ×2 (00:17→16:36)
[2018-07-14] MEDS ORDERED: XANAX PO ONE (00:45)
[2018-07-14] MEDS: 1/2 NS 1,000 ML IV SCH ×2 (04:29→14:25)
--- NOTE | 2018-07-14 04:42 | PROGRESS NOTE ---
DATE: 07/13/2018 SUBJECTIVE: The patient was seen in the ICU. She is still sinus shira. Heart rate 40-50. No urine output. Patient is awake on BiPAP. She is more responding. Heart rate is 45 to 50 on dopamine drip. EXAMINATION: General: The patient is on BiPAP. No significant complaints. Vital Signs: Temp is 97 degrees, pulse rate is 47, blood pressure is 116/46, 3 L nasal cannula 99% . HEENT: On BiPAP machine, poor air entry. Heart: Distant heart sounds. Abdomen: Belly is soft, nontender. Genitourinary: Eason was placed. Extremities: Nonpitting edema on both legs. LABS: CBC: White cell count 9, hematocrit 35, platelets 225,000. ABG: pH is 7.33, pCO2 49, PO2 205, on BiPAP 40%. SMA-7: Sodium 139, potassium 5.5, BUN 74 creatinine 3.5, glucose 173. ProBNP was high. Chest x-ray: Mild increasing vasculature. ASSESSMENT AND PLAN: 1. Near syncope due to sick sinus syndrome, off flecainide and metoprolol. 2. Continue on IV dopamine. 3. Prerenal azotemia. IV fluids. Maintain systolic blood pressure more than 100. 4. Diabetes, on insulin protocol. 5. GI prophylaxis with IV Protonix. 6. Hyperkalemia. Kayexalate was given. We will check the labs in the morning. Discussed with the family at bedside. Thank you for Dr. Newsome's input. cc: Loc Rodríguez MD [facility]
[2018-07-14] MEDS: HUMALOG SUBQ SCH ×4 (07:16→20:49)
--- NOTE | 2018-07-14 07:51 | Diag Imaging Result Doc PS360 ---
CHEST-1 VIEW - 07/14/2018 INDICATION: SOB COMPARISON: 07/13/2018 FINDINGS: Stable right chest port. Stable cardiomegaly and pulmonary vascular congestion. There has been improvement in the bibasilar lower lobe atelectasis. No significant infiltrates or pulmonary edema. IMPRESSION: Improvement from prior. Cardiomegaly and pulmonary vascular congestion. Electronically signed by Yifan Buitrago 07/14/2018 7:49 AM
[2018-07-14] MEDS ORDERED: NS 500 ML IV ONE (08:23)
[2018-07-14] MEDS: LOVENOX SUBQ SCH (08:47)
--- NOTE | 2018-07-14 09:06 | PROGRESS NOTE ---
DATE: 07/14/2018 SUBJECTIVE: Patient denies chest discomfort or dyspnea. She still remains dependent upon dopamine for heart rate and blood pressure support presently. OBJECTIVE: Vital Signs: Blood pressure 130/50, heart rate 52 to 63, oxygen saturation 100% on nasal cannula oxygen. Neck: There is no significant jugular venous distention. Chest: Clear to auscultation. Cardiac: A regular rate and rhythm without appreciable murmur, rub, or gallop. There is no evidence of peripheral edema. LAB DATA: Pending. IMPRESSION: 1. Bradycardia related to underlying sinus node dysfunction and aggravated by cardiovascular medications. Patient recently on metoprolol 100 mg twice daily as well as flecainide. 2. Paroxysmal atrial fibrillation. She really had minimal symptoms with her atrial fibrillation. 3. Hypothyroidism. 4. Non-Hodgkin's lymphoma, stage IV,requiring maintenance chemotherapy via port in right subclavian vein. 5. Diabetes mellitus type 2. 6. Hypertension. 7. Chronic kidney disease. PLAN: 1. Continue intravenous dopamine as required. 2. Continue gentle hydration. cc: MD Loc Leigh MD
[2018-07-14 09:24] LABS: BASO# 0.01 X1000 (0.0-0.2); BASO% 0.2 % (0.0-0.8); EOS# 0.05 X1000 (0.0-0.7); EOS% 0.8 % (0.0-10.0); HEMATOCRIT 28.9 % (37.0-47.0); HEMOGLOBIN 9.6 g/dL (12.0-16.0); IMM GRAN# 0.07 X1000 (0.0-0.04); IMM GRAN% 1.1 % (0.0-0.5); LYMPH# 0.81 X1000 (1.2-3.4); MCH 36.2 PG (27-31); MCHC 33.2 g/dL (33-37); MCV 109.1 FL (81-99); MONO# 0.64 X1000 (0.11-0.59); MONO% 10.2 % (1.7-9.3); MPV 9.8 FL (7.4-10.4); NEUT# 4.67 X1000 (1.4-6.5); NEUT% 74.7 % (42.2-75.2); PLT 146 X1000 (130-400); RBC 2.65 XMIL (4.2-5.4); RDW 13.8 % (11.5-14.5); WBC 6.25 X1000 (4.8-10.8)
[2018-07-14 10:09] LABS: CALCIUM 8.4 mg/dL (8.8-10.2); CREATININE 3.2 mg/dL (0.5-0.9); POTASSIUM 4.1 mmol/L (3.5-5.1)
[2018-07-14] MEDS: LYRICA PO SCH (20:57)
[2018-07-14] MEDS: SODIUM CHLORIDE 0.9% INJ SCH (20:58)
[2018-07-14] MEDS: PROTONIX IV SCH (20:58)
--- NOTE | 2018-07-15 00:05 | PROGRESS NOTE ---
DATE: 07/14/2018 SUBJECT: Patient is off BiPAP more awake. Dr. Newsome is working on heart rate and blood pressure. She is on dopamine after stopping blood pressure dropping, she is hypovolemic and IV fluids boluses were given. The patient was started on low doses of dopamine back again. She still in sinus, heart rate is between 45 to 50. Eason was placed. REVIEW OF SYSTEMS: None reported. EXAMINATION: Pulse is 50, hemodynamics are stable.HEENT: Within normal limits. Neck: Supple. Lungs: Poor air entry distant. Heart: Distant sounds. Belly: Is soft, nontender. No edema. INVESTIGATIONS: CBC. White cell count 6.2, hematocrit 28.9, platelets 146,000. SMA 7 sodium 134, potassium 4.1, chloride 94, BUN 73, creatinine 3.2, glucose 174. Chest x-ray improvement from the prior, port on the right side of the chest. ASSESSMENT AND PLAN: 1. Atrial fibrillation sinus shira symptomatic and hold on the permanent pacemaker. 2. Paroxysmal atrial fibrillation in sinus off on the flecainide and metoprolol. 3. Hypotension, bradycardia. Continue on low dose of dopamine, IV fluids . 4. Prerenal azotemia. Continue to monitor SMA 7. 5. Deep vein thrombosis, gastrointestinal prophylaxis as per order sheet. 6. Reconcile home medications. 7. Reconcile home medicines and will follow up. LEVEL OF DOCUMENTATION: 25 minutes. cc: Loc Rodríguez MD
[2018-07-15] MEDS: 1/2 NS 1,000 ML IV SCH ×4 (00:39→22:00)
[2018-07-15 05:54] LABS: CALCIUM 8.5 mg/dL (8.8-10.2); POTASSIUM 4.1 mmol/L (3.5-5.1)
[2018-07-15] MEDS: HUMALOG SUBQ SCH ×4 (06:51→21:59)
[2018-07-15] MEDS: SYNTHROID PO SCH (07:12)
[2018-07-15] MEDS: CULTURELLE PO SCH (08:16)
[2018-07-15] MEDS: ZYLOPRIM PO SCH (08:16)
[2018-07-15] MEDS: LOVENOX SUBQ SCH (08:17)
--- NOTE | 2018-07-15 08:23 | Diag Imaging Result Doc PS360 ---
EXAM: CHEST-1 VIEW INDICATION: SOB TECHNIQUE: One view COMPARISON: 07/14/2018 FINDINGS: The chest port is in stable position. Bilateral lower lobe atelectasis is again noted. There is also what appear to be small pleural effusions that have developed. Pulmonary venous congestion is essentially stable. Cardiac silhouette is stable. IMPRESSION: Likely development of small pleural effusions. Electronically signed by Taye Barraza 07/15/2018 8:20 AM
[2018-07-15] MEDS: TYLENOL PO PRN (10:14)
--- NOTE | 2018-07-15 13:45 | PROGRESS NOTE ---
DATE: 07/15/2018 SUBJECTIVE: The patient is a little better, still on IV fluids and low dose of dopamine. Heart rate is up around 60. Hemodynamics stable. Making some urine. The patient is in good spirits. Family is at bedside. OBJECTIVE: Pulse is 63, blood pressure is still on the low side, 3 L nasal cannula, 97%. The patient was making urine, 1200 in last 24 hours. Vitals are stable. HEENT: Within normal limits. Neck is supple. Chest with bilateral air entry. Heart sounds are regular. Belly is soft, nontender. Good bowel sounds. Nonpitting edema. Nonfocal. DIAGNOSTIC DATA: SMA-7 shows sodium 134, potassium 4.1, BUN is 75, creatinine 3.0. ASSESSMENT AND PLAN: 1. Sick sinus syndrome. Stable. 2. Paroxysmal atrial fibrillation. Off beta blockers and flecainide. 3. DVT prophylaxis with Lovenox. 4. GI prophylaxis with IV Protonix. 5. Hypotension. On low dose of dopamine. Intravascular volume depletion. Slowly wean off. Continue IV fluids at 50 mL per hour. 6. Acute kidney injury due to prerenal. Follow up on SMA-7. 7. Gout, on Zyloprim. 8. Hypothyroidism, on Synthroid. 9. Diabetes, on insulin sliding scale with protocol and follow. Level of documentation is 25 minutes. cc: Loc Rodríguez MD
--- NOTE | 2018-07-15 15:55 | CARDIOLOGY PROGRESS NOTE ---
DATE: 07/15/2018 SUBJECTIVE: Ms. Mahmood is lying in bed. She reports a good appetite. She has no complaints. No shortness of breath. PHYSICAL EXAMINATION: Vital Signs: The patient is afebrile. Heart rate is in the 50s to 60s predominantly. Blood pressure is 89/46. She is currently on a slow wean of her dopamine. General: No acute distress. Cardiovascular: She is in a rate controlled atrial fibrillation. Irregularly irregular. Extremities: She has marked bilateral lower extremity edema consistent with lymphedema. Warm and well perfused extremities. Chest: Her chest exam sounds relatively clear from the anterior and axillary positions. Abdomen: Her abdomen is soft and nontender. Bowel sounds are intact. DATA: Sodium is 134, potassium 4.1, BUN 75, and creatinine 3, which is roughly stable for her. ASSESSMENT: Ms. Mahmood is a 78-year-old female with bradycardia and atrial fibrillation. PLAN: We will continue to rate control the patient. She seems reasonably well rate controlled presently. She is not requiring any medications currently. I would continue to hold any AV nathaniel blocking agents as she has had issues with bradycardia during this hospitalization. cc: MD Loc Claros MD
[2018-07-15] MEDS: PROTONIX IV SCH (21:59)
[2018-07-15] MEDS: LYRICA PO SCH (21:59)
[2018-07-16] MEDS: SYNTHROID PO SCH (06:04)
[2018-07-16] MEDS: 1/2 NS 1,000 ML IV SCH ×3 (06:04→16:12)
[2018-07-16] MEDS: HUMALOG SUBQ SCH ×4 (06:16→22:08)
[2018-07-16 06:35] LABS: CALCIUM 8.6 mg/dL (8.8-10.2); CREATININE 2.4 mg/dL (0.5-0.9); POTASSIUM 4.1 mmol/L (3.5-5.1)
[2018-07-16] MEDS: CULTURELLE PO SCH (08:03)
[2018-07-16] MEDS: LOVENOX SUBQ SCH (08:03)
[2018-07-16] MEDS: ZYLOPRIM PO SCH (08:03)
[2018-07-16] MEDS: TYLENOL PO PRN (10:26)
--- NOTE | 2018-07-16 15:09 | PROGRESS NOTE ---
DATE: 07/16/2018 SUBJECT: The patient is a little better. The patient is in sinus. Heart rate is picking up. No complaints. EXAMINATION: Temperature is 99.1 degrees, pulse is 76, blood pressure is 150/74, patient is making urine positive 790.HEENT: Within normal limits. Neck: Supple. Port on the right side noted. Belly: Soft, nontender. No obvious deficits. INVESTIGATIONS: SMA 7 sodium 135, potassium 4.1, BUN 67, creatinine 2.4. ASSESSMENT AND PLAN: 1. Sick sinus syndrome stable off flecainide, metoprolol, heart rate is 76. 2. Acute kidney injury due to prerenal azotemia. Continue IV fluids. 3. Out of the bed with physical therapy. 4. Reconcile home medicines giving Lyrica and Xanax. DVT prophylaxis with Lovenox. 5. Hypothyroidism on Synthroid and continue to monitor SMA 7 next 3 days with gentle hydration. Level of documentation is 26 minutes. cc: Loc Rodríguez MD
--- NOTE | 2018-07-16 18:42 | CARDIOLOGY PROGRESS NOTE ---
DATE: 07/16/2018 SUBJECTIVE: Ms. Mahmood says she feels better today. She continues to have some cough which seems to be dry. Her heart rate has been more controlled. No fevers. She is tolerating oral intake. PHYSICAL EXAM: She is afebrile, heart rate is 77, blood pressure 139/49. Her I's and O's continue to be a bit positive. General: No acute distress. Cardiovascular: She sounds to be in irregularly irregular rhythm consistent with rate controlled atrial fibrillation. She has diffuse edema in her lower extremities that is consistent with what appears to be lymphedema. She has warm and well-perfused extremities. No murmurs. Chest: Has coarse breath sounds diffusely, no increased work of breathing. Abdomen: Soft, nontender. PERTINENT DATA: Sodium 135, BUN and creatinine 67 and 2.4 respectively which is improved down from 75 at 3.0 yesterday. ASSESSMENT: Ms. Mahmood is a 78-year-old female with a history of atrial fibrillation and bradycardia. PLAN: At this point her atrial fibrillation seems reasonably rate controlled. I would not make any adjustments in her medications presently. cc: MD Loc Claros MD
[2018-07-16] MEDS: PROTONIX IV SCH (22:05)
[2018-07-16] MEDS: LYRICA PO SCH (22:06)
[2018-07-16] MEDS: XANAX PO SCH (22:06)
[2018-07-17] MEDS: 1/2 NS 1,000 ML IV SCH ×4 (00:42→20:04)
[2018-07-17] MEDS: TYLENOL PO PRN ×2 (03:13→14:21)
[2018-07-17] MEDS: SYNTHROID PO SCH ×2 (05:36→06:38)
[2018-07-17 05:56] LABS: CREATININE 1.8 mg/dL (0.5-0.9); POTASSIUM 4.4 mmol/L (3.5-5.1)
[2018-07-17] MEDS: HUMALOG SUBQ SCH ×4 (06:38→20:10)
[2018-07-17] MEDS: CULTURELLE PO SCH (08:09)
[2018-07-17] MEDS: XANAX PO SCH ×3 (08:09→20:01)
[2018-07-17] MEDS: LOVENOX SUBQ SCH (08:09)
[2018-07-17] MEDS: ZYLOPRIM PO SCH (08:09)
--- NOTE | 2018-07-17 12:39 | EKG Report ---
Test Performed on : 07/17/2018 12:33:28 PM Test Reason : Heart rate 132 Blood Pressure : / mmHG Vent. Rate : 120 BPM Atrial Rate : 093 BPM P-R Int : 000 ms QRS Dur : 162 ms QT Int : 384 ms P-R-T Axes : 000 -50 004 degrees QTc Int : 542 ms Atrial fibrillation. with rapid ventricular response. Left axis deviation Right bundle branch block Inferior infarct , old Abnormal ECG When compared with ECG of 13-JUL-2018 06:50, (Unconfirmed) Atrial fibrillation. has replaced Junctional bradycardia. Except for A-fib with RVR this tracing is similar to 02-Oct-2015 Confirmed by Madhavi SMITH, Mervin Ngo ([id number]) on 07/18/2018 5:39:18 PM
[2018-07-17] MEDS ORDERED: LOPRESSOR IV ONE (14:02)
[2018-07-17] MEDS: FLOMAX PO SCH (18:11)
--- NOTE | 2018-07-17 19:00 | PROGRESS NOTE ---
DATE: 07/17/2018 SUBJECT: 78-year-old white female doing very well. Patient family wants to go rehab. Unfortunately went to rapid atrial fibrillation and Dr. Rocha gave Lopressor. She had sick sinus syndrome. Renal function tests coming back to normal. EXAMINATION: Temperature is 99.5 degrees, pulse is 96. Vitals are stable. 2 L nasal cannula.HEENT: Within normal limits. Neck: Supple. No lymphadenopathy, no goiter. Chest: Bilateral air entry. Heart: Sounds are regular in the morning. Belly: Soft, nontender. Good bowel sounds. No pedal edema. LABS: SMA 7. Sodium 140, potassium 4.4, chloride 101, BUN 49, creatinine 1.8, glucose 108, calcium 9.0. ASSESSMENT AND PLAN: 1. Acute kidney injury improving, continue gentle hydration. 2. Discontinue Eason. 3. Sick sinus syndrome with tachybrady syndrome currently atrial fibrillation after [address] Newsome and Dr. Rocha. I think in the long run she needs permanent pacemaker or electrophysiology study. 4. immigration services officer consult for mcc placement once she is stable. 5. Hypothyroidism on Synthroid. Deep vein thrombosis, gastrointestinal prophylaxis as per order sheet. Once the renal function test comes back to normal will restart her medications and continue physical therapy. LEVEL OF DOCUMENTATION: 25 minutes. cc: Loc Rodríguez MD
[2018-07-17] MEDS: LYRICA PO SCH (20:00)
[2018-07-17] MEDS: PROTONIX IV SCH (20:01)
[2018-07-17] MEDS: SODIUM CHLORIDE 0.9% INJ SCH (20:02)
[2018-07-17] MEDS ORDERED: FLOMAX PO SCH (21:00)
[2018-07-18 06:13] LABS: CALCIUM 8.8 mg/dL (8.8-10.2); CREATININE 1.1 mg/dL (0.5-0.9); POTASSIUM 4.4 mmol/L (3.5-5.1)
[2018-07-18] MEDS: SYNTHROID PO SCH (06:23)
[2018-07-18] MEDS: HUMALOG SUBQ SCH ×4 (06:23→21:53)
--- NOTE | 2018-07-18 07:19 | EKG Report ---
Test Performed on : 07/17/2018 11:09:39 PM Test Reason : rhythm change Blood Pressure : / mmHG Vent. Rate : 114 BPM Atrial Rate : 093 BPM P-R Int : 000 ms QRS Dur : 152 ms QT Int : 378 ms P-R-T Axes : 000 -45 030 degrees QTc Int : 521 ms Atrial fibrillation. with rapid ventricular response. Left axis deviation Right bundle branch block Abnormal ECG When compared with ECG of 17-JUL-2018 12:33, (Unconfirmed) No significant change was found Confirmed by Madhavi SMITH, Mervin Ngo ([id number]) on 07/18/2018 5:52:20 PM
[2018-07-18] MEDS ORDERED: LASIX IV ONE (08:53)
[2018-07-18] MEDS: CULTURELLE PO SCH (09:11)
[2018-07-18] MEDS: ZYLOPRIM PO SCH (09:11)
[2018-07-18] MEDS: FLOMAX PO SCH (09:11)
[2018-07-18] MEDS: XANAX PO SCH ×3 (09:11→21:53)
[2018-07-18] MEDS: LOVENOX SUBQ SCH (09:21)
[2018-07-18] MEDS: CARDIZEM PO SCH ×3 (09:21→21:54)
--- NOTE | 2018-07-18 09:23 | CARDIOLOGY PROGRESS NOTE ---
DATE: 07/18/2018 SUBJECTIVE: The patient reports some mild shortness of breath this morning on nasal cannula oxygen. There has been no chest pain. There are no palpitations. She went back into atrial fibrillation with increased ventricular rate last night. She continues in atrial fibrillation with heart rate around 120 beats per minute this morning. OBJECTIVE: Vital Signs: Blood pressure 153/86. Heart rate 110 and irregular with ECG monitor showing atrial fibrillation. Neck: There is no significant jugular venous distention appreciated. Chest: Auscultation of the chest reveals few expiratory wheezes. Cardiac: Exam reveals an irregular rate and rhythm without appreciable murmur or gallop. There is no evidence of peripheral edema. LABORATORY DATA: Includes sodium 140, potassium 4.4, chloride 104, carbon dioxide 26, BUN 35, creatinine 1.1, glucose 128. IMPRESSION: 1. Recent problems with marked bradycardia related to sinus node dysfunction and aggravated by cardiovascular medications. Additionally, the patient had probable accumulation of flecainide in the setting of acute on chronic renal dysfunction. The patient has improved with cessation of metoprolol 100 mg twice daily and flecainide 100 mg twice daily, with the patient going back in atrial fibrillation. 2. Sinus node dysfunction apparent. 3. Paroxysmal atrial fibrillation. The patient is back in atrial fibrillation. It is noteworthy that she was asymptomatic more or less with respect to this atrial fibrillation, which was discovered on routine office followup. 4. Non-Hodgkin's lymphoma stage IV, requiring maintenance chemotherapy via port in the right subclavian vein. 5. Hypothyroidism. 6. Hypertension. I suspect she likely has some degree of diastolic dysfunction. 7. Probable obstructive sleep apnea. 8. Chronic kidney disease. 9. Diabetes mellitus type 2. RECOMMENDATIONS: 1. Leave the patient in atrial fibrillation and make no further efforts to restore sinus rhythm at this point. Focus on rate control. AV node function has been fairly healthy compared to sinus node dysfunction. We will start low-dose Cardizem and titrate for rate control. If despite this, the patient cannot achieve satisfactory rate control and manifests tachycardia- bradycardia, a pacemaker will be required. 2. Gentle diuresis. 3. Limit use of beta-ansley, as this seems to have promoted bronchospasm. 4. Anticoagulate with Lovenox 1 mg/kg subcutaneously every 24 hours for now. cc: MD Loc Leigh MD
[2018-07-18] MEDS ORDERED: CALMOSEPTINE OINTMENT TOP PRN (19:04)
[2018-07-18] MEDS: LYRICA PO SCH (21:53)
[2018-07-18] MEDS: PROTONIX IV SCH (21:53)
--- NOTE | 2018-07-18 23:54 | PROGRESS NOTE ---
DATE: 07/18/2018 SUBJECTIVE: The patient is a little better and I spoke to Dr. Newsome. Apparently he wants to keep her atrial fibrillation rate controlled with Cardizem and no flecainide. At this time it is hard to do a pacemaker because of the port on the right side. She needs support for ongoing chemotherapy. EXAMINATION: Temperature is 98 degrees, pulse is 98, blood pressure is 150/78.HEENT: Within normal limits. Neck: Supple. Chest: Clear. Heart: Sounds are irregular. Belly: Is soft, nontender. Good bowel sounds. No peripheral edema. INVESTIGATIONS: CBC: White cell count 140, potassium 4.4, BUN 35, creatinine 1.1. ASSESSMENT AND PLAN: 1. Symptomatic sick sinus syndrome tachy and shira. It is reasonable to have a pacemaker because of the technical difficulties on the port unable to do the pacemaker. 2. Atrial fibrillation. Rate control with diltiazem and Lovenox. We will slowly swap into Eliquis. 3. Hypothyroidism, Synthroid. 4. Diabetes on insulin protocol and will follow up labs in the morning. LEVEL OF DOCUMENTATION: 25 minutes. cc: Loc Rodríguez MD
[2018-07-19] MEDS: CARDIZEM PO SCH ×4 (03:25→20:33)
[2018-07-19] MEDS: HUMALOG SUBQ SCH ×4 (06:12→20:44)
[2018-07-19] MEDS: SYNTHROID PO SCH (06:12)
[2018-07-19 06:42] LABS: CALCIUM 8.2 mg/dL (8.8-10.2); POTASSIUM 4.1 mmol/L (3.5-5.1)
[2018-07-19] MEDS ORDERED: XANAX PO SCH (09:00)
[2018-07-19] MEDS: LOVENOX SUBQ SCH (09:06)
[2018-07-19] MEDS: XANAX PO SCH ×3 (09:06→20:33)
[2018-07-19] MEDS: CULTURELLE PO SCH (09:06)
[2018-07-19] MEDS: ZYLOPRIM PO SCH (09:06)
[2018-07-19] MEDS ORDERED: LASIX IV ONE (19:11)
[2018-07-19] MEDS: PROTONIX IV SCH (20:32)
[2018-07-19] MEDS: GLUCOPHAGE PO SCH (20:32)
[2018-07-19] MEDS: LYRICA PO SCH (20:33)
[2018-07-19] MEDS: DUONEB (A & A) INH SCH (21:12)
--- NOTE | 2018-07-19 23:26 | PROGRESS NOTE ---
DATE: 07/19/2018 SUBJECTIVE: Patient has some cough productive of clear sputum. She denies shortness of breath on nasal cannula oxygen. There has been no chest pain. She continues in atrial fibrillation with controlled rate. OBJECTIVE: Vital Signs: Blood pressure 144/75, heart rate 95 and irregular with ECG monitor showing atrial fibrillation, oxygen saturation 100% on nasal cannula oxygen. Neck: Jugular venous distention cannot be appreciated. Chest: Auscultation of the chest reveals scattered expiratory wheezes. Cardiac: Exam reveals an irregular rate and rhythm without appreciable murmur or gallop. Extremities: Demonstrate mild to moderate pretibial edema. LABORATORY DATA: Sodium of 141, potassium 4.1, chloride 102, carbon dioxide 29, BUN 28, creatinine 1.0, glucose 143. IMPRESSION: 1. Recent problems with marked bradycardia related to sinus node dysfunction aggravated by cardiovascular medications. Patient progressively improved after cessation of cardiovascular medications and has converted back to atrial fibrillation. Plan is to manage with rate control and anticoagulation and try and minimize need for permanent pacemaker given comorbidities and need for subclavian venous port for chronic chemotherapy. 2. Sinus node dysfunction, apparent. 3. Paroxysmal atrial fibrillation. Patient is back in atrial fibrillation. She has no symptoms directly attributable to her atrial fibrillation. However, her atrial fibrillation may be aggravating her tendency for left ventricular diastolic dysfunction and possible cor pulmonale now and I am suspicious that she may have obstructive sleep apnea. 4. Non-Hodgkin's lymphoma, stage IV requiring maintenance chemotherapy via port in the right subclavian vein. 5. Hypothyroidism. 6. Hypertension. Left ventricular diastolic dysfunction suggested. 7. Probable obstructive sleep apnea. 8. Chronic kidney disease. 9. Type 2 diabetes mellitus. RECOMMENDATIONS: 1. Continue current Cardizem for rate control. 2. Diurese with IV Lasix more aggressively than in the past 24 hours. 3. Continue anticoagulation with Lovenox 1 mg/kg subcutaneous q.24 hours for now. Ultimately patient to switch back to Eliquis. cc: MD Loc Leigh MD
[2018-07-20] MEDS: DUONEB (A & A) INH SCH ×4 (03:05→21:10)
[2018-07-20] MEDS: CARDIZEM PO SCH ×4 (03:25→21:22)
--- NOTE | 2018-07-20 04:05 | PROGRESS NOTE ---
DATE: 07/19/2018 SUBJECTIVE: The patient is out of bed. The patient is not leaking urine. Currently, atrial fibrillation. Rate is well-controlled. Explained the pacemaker difficult situation. Family is aware of. Explained the plan of care as per the trial justice by Dr. Newsome. EXAMINATION: Vital Signs: Temperature is 98 degrees, pulse is 85. Vitals are stable. HEENT: Within normal limits. Neck: Supple. Chest: Clear. Heart: Sounds are irregular, distant. Abdomen: Belly is soft, nontender. Obese. Physical exam suboptimal. INVESTIGATIONS: SMA-7: Sodium 140, potassium 4.1, chloride 102, BUN 28, creatinine 1.0, glucose 142. ASSESSMENT AND PLAN: 1. Sick sinus syndrome, shira-tachy. Currently, use the diltiazem. Anticoagulation with Eliquis. 2. Acute kidney injury. Improving. 3. Non-Hodgkin's lymphoma. On hold for the chemo. 4. Out of the bed with physical therapy. 5. Type 2 diabetes, on metformin. 6. Gout, on Zyloprim. 7. Hypothyroidism, on Synthroid. 8. Continue rate control and anticoagulation for atrial fibrillation. Hold the pacemaker. 9. Disposition. Head Of Human Resources consult for rehab. cc: Loc Rodríguez MD
[2018-07-20] MEDS: SYNTHROID PO SCH ×2 (05:54→06:10)
[2018-07-20] MEDS: HUMALOG SUBQ SCH ×4 (06:10→21:12)
[2018-07-20] MEDS ORDERED: LASIX IV ONE (08:00)
--- NOTE | 2018-07-20 08:28 | Diag Imaging Result Doc PS360 ---
EXAM: CHEST-1 VIEW 07/20/2018 HISTORY: dyspnea/wheezing TECHNIQUE: AP portable at 0820 COMMENT: There is hazy opacity over the right base partially obscuring the hemidiaphragm. This appears to include portions of the lower right upper lobe. Compared to the previous study of 07/15/2018 there has been some improvement and the opacity which was previously present in the costophrenic sulcus on the left has resolved. IMPRESSION: Improved pulmonary edema and/or pneumonia. Right pleural effusion. Electronically signed by Raul Rodriguez 07/20/2018 8:26 AM
[2018-07-20] MEDS: CULTURELLE PO SCH (08:43)
[2018-07-20] MEDS: XANAX PO SCH ×3 (08:43→21:22)
[2018-07-20] MEDS: ZYLOPRIM PO SCH (08:43)
[2018-07-20] MEDS: LOVENOX SUBQ SCH (08:43)
[2018-07-20 08:48] LABS: CALCIUM 7.8 mg/dL (8.8-10.2); CREATININE 1.1 mg/dL (0.5-0.9); POTASSIUM 3.8 mmol/L (3.5-5.1)
--- NOTE | 2018-07-20 13:29 | PROGRESS NOTE ---
DATE: 07/20/2018 SUBJECTIVE: Patient continues without chest discomfort or dyspnea on supplemental oxygen per nasal cannula. Cough has improved. OBJECTIVE: Blood pressure 150/58, heart rate 93 and irregular with ECG monitor showing atrial fibrillation with controlled rate. Oxygen saturation 97% on nasal cannula oxygen at 2 L/minute. Neck: Jugular venous distention cannot be appreciated. Chest: Auscultation of the chest reveals some diminished breath sounds in the right base posteriorly. It was, otherwise, clear to auscultation bilaterally. Cardiac exam reveals an irregular rate and rhythm without appreciable murmur or gallop. Extremities demonstrate [id number] pretibial edema. LABORATORY DATA: Sodium 142, potassium 3.8, chloride 101, carbon dioxide 28. BUN 23, creatinine 1.1, glucose 130. Chest x-ray reports improved pulmonary edema and/or pneumonia. Right pleural effusion noted. IMPRESSION: 1. Recent problems with marked bradycardia related to sinus node dysfunction aggravated by cardiovascular medications. Patient progressively improved after cessation of cardiovascular medications and has converted back to atrial fibrillation. The patient has port for venous access in the right subclavian area and previously had a port in left subclavian area. Given that permanent pacemaker would be problematic, it was felt best to manage her with rate control and anticoagulation. 2. Sinus node dysfunction. 3. Paroxysmal atrial fibrillation. Patient is back in atrial fibrillation. She has no symptoms directly attributable to her atrial fibrillation; however, in atrial fibrillation she seems to be aggravating her tendency for left ventricular diastolic function and possible cor pulmonale. 4. Non-Hodgkin's lymphoma, stage IV, requiring maintenance chemotherapy. 5. Hypothyroidism. 6. Hypertension. 7. Left ventricular diastolic dysfunction suggested. 8. Probable obstructive sleep apnea. 9. Chronic kidney disease. 10. Type 2 diabetes mellitus. RECOMMENDATIONS: 1. Transition to long-acting oral Cardizem for rate control. 2. Transition from subcu Lovenox to Eliquis for anticoagulation. 3. Transition to oral Lasix daily. 4. Plans noted for patient to be transferred to a halfway facility for rehabilitation. This certainly appears reasonable. cc: MD Loc Leigh MD
[2018-07-20] MEDS ORDERED: PROTONIX PO SCH (21:00)
[2018-07-20] MEDS: GLUCOPHAGE PO SCH (21:22)
[2018-07-20] MEDS: LYRICA PO SCH (21:23)
--- NOTE | 2018-07-21 00:40 | PROGRESS NOTE ---
DATE: 07/20/2018 SUBJECTIVE: The patient is a little bit better. Reviewed the reports from Dr. Pedrito Newsome. OBJECTIVE: Vital Signs: Temperature is 97 degrees, heart rate is 117. Vitals are stable. 3 L nasal cannula. HEENT: Within normal limits. Neck: Supple. No lymphadenopathy. Chest: Clear to auscultation. Heart: Irregular heart sounds. Abdomen: Belly is soft, nontender. Port on the right side of the chest. No neurological deficits. INVESTIGATIONS: CBC: White cell count 142, potassium 3.8, BUN 23, creatinine 1.1. Chest x-ray: Improved pulmonary edema, pneumonia, and right pleural effusion. ASSESSMENT AND PLAN: 1. Sick sinus syndrome, shira-tachy syndrome. Continue on atrial fibrillation with Cardizem. Discontinue metoprolol and Eliquis. 2. Non-Hodgkin's lymphoma, stable. 3. Hypothyroidism, on Synthroid. 4. Started giving some Lasix. 5. Gout, stable. 6. We will ask the social workers for disposition. Referrals were made. When the bed is available, will discharge to the rehab. LEVEL OF DOCUMENTATION: 15 minutes. cc: Loc Rodríguez MD
[2018-07-21] MEDS: TYLENOL PO PRN (02:13)
[2018-07-21] MEDS: DUONEB (A & A) INH SCH (03:05)
[2018-07-21] MEDS: HUMALOG SUBQ SCH ×2 (06:14→12:42)
[2018-07-21] MEDS: SYNTHROID PO SCH (06:21)
[2018-07-21] MEDS ORDERED: CARDIZEM CD PO SCH (09:00)
[2018-07-21] MEDS ORDERED: LASIX PO SCH (09:00)
[2018-07-21] MEDS ORDERED: ELIQUIS PO SCH (09:00)
[2018-07-21] MEDS: ZYLOPRIM PO SCH (09:02)
[2018-07-21] MEDS: XANAX PO SCH (09:02)
[2018-07-21] MEDS: CULTURELLE PO SCH (09:02)
[2018-07-21 11:38] VITALS: BP 149/75
--- NOTE | 2018-07-21 12:02 | DISCHARGE SUMMARY ---
ADMISSION DATE: 07/12/2018 DISCHARGE DATE: 07/21/2018 DISCHARGING DIAGNOSES: 1. Syncope. Dizzy spells due to sick sinus syndrome. Dontrell/tachycardic syndrome precipitated by medications with flecainide. SECONDARY DIAGNOSES: 1. Chronic atrial fibrillation - rate control and anticoagulation. 2. Acute kidney injury due to prerenal azotemia due to hypotension. 3. Diastolic heart failure. 4. Chronic atrial fibrillation. 5. Cellulitis of both legs. 6. Type 2 diabetes. 7. Hiatal hernia. 8. Hypertension. 9. Gout. 10. Hypothyroidism. 11. Chronic lymphedema of the left leg. 12. Non-Hodgkin's lymphoma, stage IV, since 2016. In remission, on maintenance treatment to chemotherapy by Dr. Rodgers in [place]. Port-A-Cath on the right side. 13. Nontoxic multinodular goiter. 14. History of bilateral knee replacement with osteoarthritis of both knees. CONSULT: Jerod Major. BRIEF HISTORY: Please see the H and P that was done on 07/12/2018. In brief, she is a 78-year-old white, obese, female with the above problems readmitted to the hospital with low blood pressure, low heart rate. She was in sinus bradycardia. Heart rate is 30. Blood pressure is 80/60. Prior to admission, she was under atrial fibrillation, and Dr. Salgado started on flecainide and metoprolol, and she was in sinus with symptomatic bradycardia. Ideally, the patient needs permanent pacemaker. However, it is hard to do given the predicament of a port on the right side. Dr. Newsome recommended at this time. Continue rate control along with anticoagulation. The patient was admitted in ICU. She was started on IV fluids and IV dopamine. After 48 hours, the medicines are washed off and the patient's heart rate went to 60. Blood pressure was stable. After hydration, renal function test came back normal. Eason was discontinued. The patient went back into atrial fibrillation and basically continued on Cardizem and anticoagulation with Eliquis. The patient is feeble. At the request of the family, transferred to [facility] for convalescence for [address] Palafox is going to maintain the treatment in the detention. LABORATORY DATA: CBC: White cell count 6.2, hematocrit 29, platelets 146,000. SMA-7: Sodium 142, potassium 3.8, chloride 101. BUN 23, creatinine 1.1. DISCHARGE INSTRUCTIONS: 1. Allopurinol 300 mg daily. 2. Prilosec 40 mg daily. 3. Metformin 500 mg daily. 4. Probiotic 1 tablet daily. 5. Lasix 40 mg daily. 6. Ventolin as needed. 7. Xanax 0.25 t.i.d. 8. Lyrica 25 at bedtime. 9. Eliquis 5 mg p.o. b.i.d. 10. Synthroid 125 daily. 11. Potassium 10 mEq daily. 12. Tylenol p.m. for itching. 13. Cardizem 120 mg daily. Basically, continue rate control with atrial fibrillation and anticoagulation. At this time, discontinue previous medications lecainide and metoprolol as per Dr. Newsome. If this plan does not work and she continues to have sick sinus syndrome, basically take the Port-A-Cath out and then put in a permanent pacemaker down the line. We will refer to sander machine. Follow up in my office as well as Dr. Newsome. Dr. Palafox is going to monitor her care in the detention at [facility]. cc: Loc Rodríguez MD MTDD
== END 2018-07-21 13:46 | DRG 309 ==
LOC: SUPCPDRO → ED 09:50 → EDIPHOLD 20:15 → ICU 21:35 → 3S 07-15 17:24
PROVIDERS: ADMIT Internal Medicine; ATTEND Internal Medicine
CPT/HCPCS: 70450; 71010; 71045; 80048; 80053; 80162; 81001; 82550; 82805; 82948; 83605; 83735; 83880; 84484; 85025; 85027; 85610; 85730; 87275; 87276; 87804; 93005; 93010; 93308; 94640; 94660; 94761; 96365; 96366; 96375; 96376; 97162; 97530; 99285; 99291; A9270; C9113; J0171; J0461; J0610; J1265; J1610; J1650; J1815; J1940; J2405; J2550; J7030; J7040; J7050; S0164; XXXXX

== ENCOUNTER 2018-08-19 19:12 | Inpatient (IN) ==
[2018-08-19 19:58] LABS: BASO# 0.01 X1000 (0.0-0.2); BASO% 0.2 % (0.0-0.8); EOS# 0.08 X1000 (0.0-0.7); EOS% 1.9 % (0.0-10.0); HEMATOCRIT 32.5 % (37.0-47.0); HEMOGLOBIN 10.3 g/dL (12.0-16.0); IMM GRAN# 0.05 X1000 (0.0-0.04); IMM GRAN% 1.2 % (0.0-0.5); LYMPH# 1.26 X1000 (1.2-3.4); LYMPH% 30.1 % (20.5-51.1); MCH 34.9 PG (27-31); MCHC 31.7 g/dL (33-37); MCV 110.2 FL (81-99); MONO# 0.61 X1000 (0.11-0.59); MONO% 14.6 % (1.7-9.3); MPV 9.9 FL (7.4-10.4); NEUT# 2.17 X1000 (1.4-6.5); PLT 168 X1000 (130-400); RBC 2.95 XMIL (4.2-5.4); RDW 14.8 % (11.5-14.5); WBC 4.18 X1000 (4.8-10.8)
[2018-08-19] MEDS ORDERED: LASIX IV ONE (20:23)
--- NOTE | 2018-08-19 20:26 | Diag Imaging Result Doc PS360 ---
EXAM: CHEST-PORTABLE HISTORY: sob TECHNIQUE: Portable chest COMPARISON: 07/20/2018 FINDINGS: The lungs are well expanded. The heart is not enlarged. No change in the right jugular portacatheter. The vessels are borderline mildly distended. There are no infiltrates. No effusion identified. IMPRESSION: Mild pulmonary edema. Follow-up PA and lateral recommended. Electronically signed by Augusto Horan 08/19/2018 8:24 PM
[2018-08-19 20:27] LABS: ALB/GLOB RATIO 1.4; ALBUMIN 4.1 g/dL (3.5-5.0); CALCIUM 10.1 mg/dL (8.8-10.2); CREATININE 2.4 mg/dL (0.5-0.9); POTASSIUM 5.7 mmol/L (3.5-5.1); TOTAL BILIRUBIN 0.21 mg/dL (0.20-1.00); TOTAL PROTEIN 7.1 g/dL (6.3-8.3)
[2018-08-19 21:02] LABS: URINE SOURCE CATH
[2018-08-19 21:08] LABS: BILIRUBIN URINE NEGATIVE (NEGATIVE); BLOOD URINE SMALL (NEGATIVE); COLOR YELLOW; GLUCOSE URINE NEGATIVE (NEGATIVE); KETONE URINE NEGATIVE (NEGATIVE); LEUKOCYTES URINE LARGE (NEGATIVE); NITRITE URINE NEGATIVE (NEGATIVE); PROTEIN URINE NEGATIVE (NEGATIVE); SP GRAVITY URINE 1.006; TURBIDITY URINE CLEAR (CLEAR); UROBILINOGEN URINE NORMAL (NORMAL)
[2018-08-19 21:12] LABS: UR EPITHELIAL CELLS >10 /HPF (<10); URINE BACTERIA NEGATIVE /HPF; URINE RBC <10 /HPF (<10); URINE WBC 20-40 /HPF (<10)
[2018-08-19 21:19] LABS: URINE CASTS NONE SEEN; URINE CRYSTALS NONE SEEN; URINE SMALL ROUND CELLS TRANS PRESENT; URINE YEAST PRESENT
[2018-08-19 23:19] LABS: INR 1.62; PROTIME 20.5 Seconds (11.0-16.0)
[2018-08-19 23:20] LABS: PTT 38.9 Seconds (22.3-41.8)
[2018-08-19] MEDS ORDERED: CARDIZEM CD PO ONE (23:31)
[2018-08-20] MEDS ORDERED: ZOFRAN IV PRN (01:12)
[2018-08-20] MEDS ORDERED: NS NEB INH SCH (01:12)
[2018-08-20] MEDS: ROCEPHIN 1 GM in NS 50 ML IV SCH (02:09)
[2018-08-20] MEDS: XOPENEX NEB INH SCH ×5 (03:53→21:52)
[2018-08-20] MEDS: ATROVENT NEB INH SCH ×5 (03:53→21:53)
[2018-08-20] MEDS ORDERED: KAYEXALATE PO ONE (06:12)
[2018-08-20] MEDS: SYNTHROID PO SCH (07:06)
[2018-08-20] MEDS: HUMALOG SUBQ SCH ×4 (07:06→21:23)
[2018-08-20] MEDS: PRILOSEC PO SCH (07:06)
[2018-08-20] MEDS ORDERED: DIFLUCAN PO ONE (07:39)
[2018-08-20 07:43] LABS: BASO# 0.03 X1000 (0.0-0.2); BASO% 0.8 % (0.0-0.8); EOS# 0.18 X1000 (0.0-0.7); EOS% 4.8 % (0.0-10.0); HEMATOCRIT 31.7 % (37.0-47.0); HEMOGLOBIN 9.8 g/dL (12.0-16.0); IMM GRAN# 0.05 X1000 (0.0-0.04); IMM GRAN% 1.3 % (0.0-0.5); LYMPH# 1.01 X1000 (1.2-3.4); LYMPH% 26.8 % (20.5-51.1); MCH 34.9 PG (27-31); MCHC 30.9 g/dL (33-37); MCV 112.8 FL (81-99); MONO# 0.62 X1000 (0.11-0.59); MONO% 16.4 % (1.7-9.3); MPV 9.6 FL (7.4-10.4); NEUT# 1.88 X1000 (1.4-6.5); NEUT% 49.9 % (42.2-75.2); PLT 139 X1000 (130-400); RBC 2.81 XMIL (4.2-5.4); RDW 15.2 % (11.5-14.5); WBC 3.77 X1000 (4.8-10.8)
[2018-08-20 08:03] LABS: CALCIUM 9.7 mg/dL (8.8-10.2); MAGNESIUM 1.6 mg/dL (1.5-2.7); POTASSIUM 4.5 mmol/L (3.5-5.1)
[2018-08-20 08:23] LABS: ANISOCYTOSIS OCCASIONAL; BANDS 2 % (0-1); EOS 2 % (1-10); LYMPHS 32 % (21-51); MONO 14 % (1-9); SEGS 50 % (42-75)
[2018-08-20] MEDS ORDERED: LASIX IV SCH (09:00)
--- NOTE | 2018-08-20 09:21 | Diag Imaging Result Doc PS360 ---
EXAM: CHEST-PORTABLE - 08/20/2018 HISTORY: Dyspnea,Hypoxia,Pulmonary Edema TECHNIQUE: Portable chest COMPARISON: 08/19/2018 FINDINGS: Central venous catheter remains in place. Heart size appears within normal limits. There has been apparent mild decrease in vascular congestion. There is mild infiltrate/edema at the medial right base. There is no substantial pleural effusion or pneumothorax identified. IMPRESSION: Mild decrease in vascular congestion. Mild infiltrate/edema at medial right base. Electronically signed by Tripp Lees 08/20/2018 9:18 AM
[2018-08-20 09:28] LABS: ALLEN TEST YES; BE 6.9 mmoll (-3.0-3.0); BLOOD TYPE ARTERIAL; HCO3-(ACT) 30.2 mmoll (20.0-26.0); METHB 0.7 % (0.0-1.5); O2(CT) 15.7 mL/dL (15.0-23.0); O2HB 94.1 % (95.0-99.0); PO2(98.6) 82 mmHg (60-100); SAMPLE BLOOD; SAO2 95.7 % (95.0-100.0); THB 11.8 g/dL (11.5-17.4); pH(98.6) 7.32 (7.35-7.45)
[2018-08-20 09:31] LABS: PCO2(98.6) 68 mmHg (35-45)
[2018-08-20 09:32] LABS: MODALITY CANNULA
--- NOTE | 2018-08-20 09:44 | Diag Imaging Result Doc PS360 ---
EXAM: CT HEAD W/O CONTRAST - 08/20/2018 HISTORY: Slurred Speech x 3 days TECHNIQUE: CT head without contrast COMPARISON: 07/12/2018 FINDINGS: There is no evidence of intracranial hemorrhage, mass effect, midline shift, or hydrocephalus. There is no evidence of infarct, although acute infarcts may not be immediately visible. There are stable small basal ganglia calcifications compatible with chronic process. There is possible right mastoid effusion noted. IMPRESSION: No visible acute intracranial abnormality. There is possible right mastoid effusion noted. This exam was performed using automated exposure control, adjustment of mA or kV according to patient size, and/or use of iterative reconstruction technique. Electronically signed by Tripp Lees 08/20/2018 9:42 AM
[2018-08-20] MEDS: DIFLUCAN PO SCH (10:00)
[2018-08-20] MEDS: CULTURELLE PO SCH (10:29)
[2018-08-20] MEDS: ELIQUIS PO SCH ×2 (10:29→21:23)
[2018-08-20] MEDS ORDERED: CARDIZEM PO ONE (12:01)
[2018-08-20] MEDS ORDERED: SOLU-MEDROL IV ONE (12:03)
--- NOTE | 2018-08-20 12:48 | PROGRESS NOTE ---
DATE: 08/20/2018 SUBJECTIVE: Patient was just admitted overnight. She tells me that she just was swelling up. There is not any documentation on the chart yet, except for orders, and I did find EKGs on the paper chart, but not in the computer yet. The patient has had a history of atrial fibrillation. EKG does showed new atrial flutter. Chest x-ray report said that there was some pulmonary edema. Cardiology has come to see her. I do not have anything dictated from that visit yet. OBJECTIVE: Vital Signs: Pulse of 126, blood pressure 156/72, temperature 98.3 degrees Fahrenheit, oxygen saturation 95%. HEENT: She is normocephalic. EOMS intact. PERRLA. Throat clear. Lungs: Have scattered rales and rhonchi. Heart: Regular rhythm. She is actually in atrial flutter and she is tachycardic. I hear no murmurs, gallops, or friction rubs at this time. Abdomen: Soft. Active bowel sounds. No organomegaly or tenderness. The patient is overweight. Height and Weight: She is 5 feet 5 inches and apparently weighs 206 pounds. Extremities: The patient has 4+ pitting edema of the lower extremities. She does have some cellulitis on the lower extremities. She has been started on Rocephin. Has also been started on Diflucan. ASSESSMENT: According to her old records, she has been admitted with: 1. Chronic atrial fibrillation. 2. Acute kidney injury. 3. Hypertension. 4. Diastolic heart failure. 5. Cellulitis, lower extremities. 6. Type 2 diabetes. 7. Gouty arthritis. 8. Hypothyroidism. 9. Lymphedema of the left leg. 10. Non-Hodgkin's lymphoma stage IV, in remission since 2016. 11. Multinodular goiter. 12. Bilateral knee replacement. At this time, what I see is: 1. Atrial flutter. 2. Probable congestive heart failure with pulmonary edema. 3. Cellulitis of the lower extremities. PLAN: We will continue with diuresis and with antibiotics. cc: MD Loc Santamaria Jr, MD
--- NOTE | 2018-08-20 14:19 | Diag Imaging Result Doc PS360 ---
EXAM: US DUPLEX RENAL ARTY/VEIN LMTD - 08/20/2018 HISTORY: r/o renal artery stenosis TECHNIQUE: Ultrasound duplex renal artery COMPARISON: None. FINDINGS: The technologist indicates that the patient was not able to cooperate during image acquisition by holding her breath. The technologist was unable to obtain the right renal artery ratio, the right resistive index, and the left renal artery ratio. The left resistive index is 0.70. The right kidney measures 11 x 4.9 x 4.6 cm in size. The left kidney measures 10.7 4.7 x 4.7 cm in size. There is an apparent 2.5 x 2.2 x 2.7 cm right renal cyst. There is no solid renal mass, renal stone, or hydronephrosis identified. IMPRESSION: Limited study, as noted above. Apparent 2.7 cm right renal cyst. Electronically signed by Tripp Lees 08/20/2018 2:17 PM
--- NOTE | 2018-08-20 14:38 | HISTORY AND PHYSICAL ---
PRIMARY CARE PHYSICIAN: Dr. Tala Rodríguez CHIEF COMPLAINT: Shortness of breath. HISTORY OF PRESENT ILLNESS: Ms. Mahmood is a 78-year-old female who was just recently discharged from our facility on 07/21/2018. During this admission, she was diagnosed with sick sinus syndrome as well as shira tachy syndrome precipitated by medications of flecainide and further complicated by beta ansley, metoprolol. It does appear according to her notes that metoprolol was thought to be causing bronchospasms as well. She was discharged home with rate control medication of Cardizem controlled dose 120 mg daily and with anticoagulation of Eliquis 5 mg p.o. b.i.d. According to discharge summary, the patient was continued on rate control with atrial fibrillation with Cardizem. They did discontinue the previous medications of flecainide and metoprolol. They are wanting to place a permanent pacemaker, though may have to remove her Port-A-Cath prior to this. The patient was discharged to rehab and has been home for approximately a week. The patient's son who was at bedside did state that since being home, the patient has just steadily declined. She does have generalized weakness, has had worsening shortness of breath, and her son also reports that she has been very drowsy and having some slurred speech. The patient does appear to be drowsy upon examination, though she is easily arousable with verbal stimulation. Once aroused, the patient is alert and oriented x4. She is able to answer questions appropriately and follow commands, though she chester have some slurred speech noted at times. Though other than some generalized weakness, the patient does not appear to have any other focal neurological deficits noted at this time. She is reporting shortness of breath, though she is denying any chest pain. She denies any abdominal pain, nausea, vomiting or diarrhea. The patient is reporting some dysuria and has reported that she has had a noticeable decrease in the amount of her urine output. The patient does have chronic swelling of her bilateral lower extremities, though she states this is not worsened at this time. She does have some trace pitting edema noted. Upon evaluation in the ER, according to EMS arrival on scene, the patient was 86% on room air, though since being placed on supplemental oxygen and receiving breathing treatment, her oxygen saturation has improved to the 90s at this time on nasal cannula 2 L. The patient is tachycardic and does appear to have atrial fibrillation noted on the monitor at bedside. Her heart rate is in the 120s, though the patient states she has not taken her Cardizem tonight as of yet. EKG was reporting an atrial flutter with a variable AV block, though I feel that the patient does appear to have atrial fibrillation present. We will go ahead and give her her nighttime dose of her Cardizem. The patient's potassium was elevated at 5.7, and she does have an acute on chronic kidney injury noted with an increase in her creatinine to 2.4 from a previous of 1.1. The patient has been given 40 mg of Lasix and is having positive response with urine output. She will be admitted for further treatment and evaluation and for CHF exacerbation. REVIEW OF SYSTEMS: A 14-point review of systems was conducted with the patient, and all were negative except for pertinent positives mentioned in the above HPI. PAST MEDICAL HISTORY: 1. Atrial fibrillation. 2. Diabetes mellitus. 3. Hiatal hernia. 4. Hypertension. 5. Gout. 6. Hypothyroidism. 7. Chronic lymphedema in the left leg. 8. History of non-Hodgkin's lymphoma stage 4. 9. Multinodular nontoxic goiter. PAST SURGICAL HISTORY: 1. Thyroidectomy. 2. Cholecystectomy. 3. Hysterectomy. 4. Back surgery. 5. Bilateral knee replacement. 6. Port-A-Cath on the right side. SOCIAL HISTORY: The patient is . She does live at home with her . She has 3 children. She has no known history of alcohol or illicit drug use. She is a former smoker though quit smoking several years ago and only did smoke for a period of a couple of years. FAMILY HISTORY: Positive for her father dying of an TX at age 62. Her mother from complications secondary to a ruptured gallbladder. ALLERGIES: The patient has allergy to iodinated contrast, oral and IV dye as well as morphine. HOME MEDICATIONS: 1. Tylenol PM 1 p.o. nightly at bedtime. 2. Ventolin HFA inhaler 60 puff/8 g inhaler, 1 puff inhaled p.r.n. 3. Allopurinol 300 mg p.o. daily. 4. Xanax 0.25 mg p.o. t.i.d. 5. Eliquis 5 mg p.o. b.i.d. 6. Diltiazem CD 120 mg p.o. daily. 7. Furosemide 40 mg p.o. daily. 8. Probiotic 1 p.o. daily. 9. Synthroid 125 mcg p.o. daily. 10.Metformin 500 mg p.o. nightly at bedtime. 11.Prilosec 40 mg p.o. daily. 12.Potassium chloride extended release 10 mEq p.o. daily. 13.Lyrica 25 mg p.o. nightly at bedtime. DIAGNOSTIC DATA: White blood cell count is 4.18, hemoglobin 10.3, hematocrit 32.5, platelet count is 168. PT is 20.5. INR is 1.62. PTT is 38.9. Sodium is 141, potassium 5.7, chloride 99, serum bicarb is 29, BUN is 71, creatinine 2.4, GFR is 20, glucose 122, calcium 10.1. Liver function tests within normal limits. CK is 31. Troponin is 0.014. ProBNP is 2613. Plasma lactate was 0.7. Urinalysis was obtained via catheter and was noted to have a small amount of blood though large leukocytes, 20 to 40 white blood cells and yeast present. EKG showed what appears to be atrial fibrillation at a rate of 125 with a QTC of 606. Chest x-ray showed mild pulmonary edema. PHYSICAL EXAMINATION: VITAL SIGNS: Temperature is 98.3, heart rate 124, respirations 12, blood pressure 156/77, oxygen saturation is 95% on nasal cannula at 2 L. GENERAL: Ms. Mahmood is a pleasant 78-year-old elderly female. She was resting on the ER stretcher. She was in no acute distress. The patient was drowsy during my examination, though was easily arousable with verbal stimulation. Once awakened, she was alert and oriented x4. She was able to answer questions appropriately and follow commands. HEENT: Head is atraumatic and normocephalic. Pupils are equal, round and reactive to light, were 3 mm bilaterally and brisk. Oral mucosa is moist. Oropharynx is clear. NECK: Supple. Trachea midline. The patient does have JVD noted. CARDIOVASCULAR: The patient has S1 and S2 present. No murmurs, gallops or rubs present. PULMONARY: The patient has symmetrical chest expansion bilaterally. Lung sounds did have crackles noted at bilateral bases. ABDOMEN: Soft, nondistended. Though the patient does have a protuberant abdomen noted. She was nontender upon palpation. Bowel sounds present in all 4 quadrants. GENITOURINARY: The patient does have a Eason catheter in place at this time. She does have yellow drainage to Eason catheter bag. EXTREMITIES: No cyanosis or clubbing present, though the patient does have swelling noted to bilateral lower extremities, though she states this is not worsened at this time. She does have a history of having chronic lymphedema. She does have some trace edema noted, though pulse, motor and sensory is intact in all extremities. She does have some generalized weakness noted. Radial and pedal pulses were 2+ bilaterally. Capillary refill is 3. INTEGUMENTARY: The patient's skin is pink, warm and dry. NEUROLOGICAL: The patient is drowsy upon examination, though was easily arousable with verbal stimulation. Once awakened, she was alert and oriented to person, place, time and situation. She was able to answer questions appropriately and follow commands. She does have some generalized weakness present and does have some slurred speech, though other than this does not appear to have any other focal neurological deficits present. ASSESSMENT AND PLAN: 1. Congestive heart failure exacerbation. The patient's most recent echocardiogram was on 07/13/2018 which did show ejection fraction of 70%. Given this, we will not repeat this at this time. We will go ahead and continue to diurese the patient with Lasix 40 mg q.12 hours. We will monitor her response closely to this with strict intake and output as well as daily weights. We will continue series of cardiac enzymes, and we have placed a consult with Cardiology and will await their evaluation and further recommendations for management. 2. Acute hypoxic respiratory failure. This is likely complicated by her CHF exacerbation. The patient is on nasal cannula at 2 L, and oxygen saturations have improved. We will continue to follow this closely. We will also order an arterial blood gas for further evaluation of this given she is having some drowsiness and slurred speech. We will continue to follow. 3. Atrial fibrillation. The patient does appear to be in atrial fibrillation at this time. Her heart rate is a little elevated in the 120s. Though the patient does not appear to be in any distress at this time. We will go ahead and give her nighttime Cardizem dose and continue to follow. She will be on continuous cardiac telemetry. 4. Generalized weakness and slurred speech. As previously mentioned, we are awaiting arterial blood gases for evaluation of possible hypercapnia. The patient also does take quite a few medicines that could be contributing to this as well. We will hold these at this time and monitor her for improvement in her mentation and slurred speech. We will do q.4 hour neuro checks as well. We have ordered a CT of head noncontrast and are awaiting those results also. We will continue to follow. 5. Acute on chronic kidney disease. The patient does have an increase in creatinine from baseline. It is 2.4 at this time where previously it was 1.1. Given this, we have held some of her medicine and adjusted the dosages of others. We will avoid nephrotoxic medications and renally dose medicine as necessary. The patient also did have some mild hyperkalemia with a potassium level of 5.7, though she is not having any acute EKG changes at this time. We will monitor this closely. The patient did receive Lasix. This will likely improve her potassium level. We will recheck this later on this morning and continue to follow. 6. Diabetes mellitus type 2. Given the patient's acute kidney injury, we have held some of her oral diabetic medications. We have placed her on a sliding scale Lispro insulin. 7. Symptomatic bacteriuria and candiduria. We have placed her with antibiotic coverage of Rocephin as well as placed her on oral fluconazole. A culture has been placed as well. 8. DVT prophylaxis will be provided with her previously prescribed anticoagulant for her atrial fibrillation of Eliquis. She has been placed on the Medical Floor with telemetry. She will have vital signs and neuro checks q.4 hours. We will do strict intake and output, aspiration precautions, incentive spirometry. We will encourage frequent turn, cough and deep breathing as well. She will on a diabetic and heart healthy diet. We have placed Permit Agent and Case Management consult in case there is a need for possible placement to rehab and/or need for home health upon discharge. Further orders and recommendations pending hospital course, diagnostic studies and physician evaluation. Dictated by JOE Dumont for Papo Melendez MD cc: MD Loc Espinoza MD
--- NOTE | 2018-08-20 15:10 | CONSULTATION ---
DATE OF CONSULTATION: 08/20/2018 IMPRESSION: 1. Shortness of breath and wheezing. Suspect acute diastolic heart failure as well as possible asthmatic bronchitis. 2. Persistent atrial fibrillation. Previous efforts to restore sinus rhythm and maintain sinus rhythm met with difficulty with bradycardia and sinus node dysfunction. Given her history of right subclavian central venous port and previous left subclavian central venous port, it was elected to avoid further efforts to maintain sinus rhythm and manage her atrial fibrillation with rate control and anticoagulation. 3. Hypertensive cardiovascular disease with tendency for diastolic heart failure. 4. Acute on chronic kidney disease. 5. Type 2 diabetes mellitus. 6. Non-Hodgkin lymphoma stage IV in remission. 7. Obesity. 8. Possible obstructive sleep apnea. RECOMMENDATIONS: 1. Diurese with intravenous Lasix cautiously. 2. Augment diltiazem to improve rate control. 3. Bronchodilators and short course of corticosteroids to try to alleviate wheezing. 4. Renal artery Doppler to screen for renal vascular disease. 5. Continue anticoagulation. 6. Ultimately the patient is scheduled to have electrophysiology/arrhythmia consult to consider further management of her atrial fibrillation. HISTORY: This 78-year-old white female with past history of atrial fibrillation, sinus node dysfunction, hypertensive cardiovascular disease, diastolic heart failure, obesity, chronic kidney disease, and non-Hodgkin lymphoma was admitted with worsening shortness of breath as well as peripheral swelling. She was recently hospitalized with problems with significant bradycardia and acute on chronic renal dysfunction. At that time she was on flecainide, metoprolol and diltiazem. Flecainide and metoprolol were discontinued and her heart rate came back up and she went back into atrial fibrillation. At that point, it was elected to manage with rate control and anticoagulation. Her renal function also improved. At time of discharge to group home facility she was on diltiazem CD 120 mg daily. She was also on anticoagulation with Eliquis. She has had some tendency for excessive daytime somnolence while in group home. She just got out of group home in the past week. She has had problems with increased swelling as well as shortness of breath and wheezing. She was brought in for evaluation and was found to have signs of congestive heart failure. She has been started on IV Lasix for diuresis. She denies any chest pain. PAST MEDICAL HISTORY: 1. Persistent atrial fibrillation. 2. Sinus node dysfunction. 3. Hypertensive cardiovascular disease with left ventricular diastolic dysfunction. 4. Obesity. 5. Type 2 diabetes mellitus. 6. Hypothyroidism. 7. Non-Hodgkin lymphoma. 8. Multinodular goiter. 9. Gout. 10. Status post bilateral knee replacement. 11. Status post left subclavian central venous port which was ultimately removed. She is also status post right subclavian central venous port which is still present. ALLERGIES: She is allergic or intolerant to iodinated contrast and morphine. MEDICATIONS PRIOR TO ADMISSION: As listed. SOCIAL HISTORY: She is . She is retired. She quit smoking 30 years ago. She does not use alcohol. FAMILY HISTORY: Positive for coronary disease. REVIEW OF SYSTEMS: Pulmonary: Noteworthy for dyspnea, wheezing and some cough. Gastrointestinal: Negative. Constitutional: Noncontributory. Remainder review of systems negative/noncontributory with 14 total systems reviewed. PHYSICAL EXAMINATION: General: This is an obese, elderly white female in no distress with some audible rhonchi. OBJECTIVE: Vital Signs: Blood pressure 154/77, heart rate 126 and irregular, oxygen saturation 96 to 97 percent on nasal cannula oxygen at 2 L/minute. HEENT: Extraocular movements intact. Mucous membranes moist. Neck: Supple. Jugular venous distention cannot be appreciated. Chest: Auscultation of the chest reveals scattered expiratory wheezes and few scattered rhonchi. Cardiac Exam: Reveals a irregular rate and rhythm without appreciable murmur or gallop. Abdomen: Soft, nontender. Bowel sounds normal. Extremities: Fat laden. There is some mild edema. There is also some chronic venous stasis changes. DIAGNOSTIC DATA: EKG demonstrates atrial fibrillation with rapid ventricular rate, left axis deviation, right bundle branch block. LABORATORY DATA: Includes a white blood cell count 3.77, hematocrit 31.7, hemoglobin 9.8, platelet count 139,000. Arterial blood gas with pH of 7.32, pCO2 of 68, PO2 of 82. Sodium 144, potassium 4.5, chloride 100, carbon dioxide 33, BUN 64, creatinine 2.0, glucose 106. CPK 14, troponin T 0.017. TSH 10.64. Chest x-ray reports mild vascular congestion. cc: MD Loc Leigh MD
[2018-08-20] MEDS ORDERED: CARDIZEM CD PO SCH (21:00)
[2018-08-20] MEDS: CARDIZEM CD PO SCH (21:22)
[2018-08-21] MEDS: ROCEPHIN 1 GM in NS 50 ML IV SCH (01:11)
[2018-08-21] MEDS: ATROVENT NEB INH SCH ×4 (04:32→22:50)
[2018-08-21] MEDS: XOPENEX NEB INH SCH ×4 (04:33→22:50)
[2018-08-21] MEDS: HUMALOG SUBQ SCH ×4 (06:24→21:26)
[2018-08-21] MEDS: SYNTHROID PO SCH (06:24)
[2018-08-21] MEDS: PRILOSEC PO SCH (06:24)
--- NOTE | 2018-08-21 07:49 | EKG Report ---
Test Performed on : 08/20/2018 06:15:44 AM Test Reason : CHF Exacerbation Blood Pressure : / mmHG Vent. Rate : 125 BPM Atrial Rate : 258 BPM P-R Int : 000 ms QRS Dur : 142 ms QT Int : 420 ms P-R-T Axes : 095 -68 -22 degrees QTc Int : 606 ms Atrial flutter. with variable AV block. Left axis deviation Right bundle branch block Inferior infarct (cited on or before 19-AUG-2018) Abnormal ECG When compared with ECG of 19-AUG-2018 19:18, (Unconfirmed) QRS duration has increased Confirmed by Colin SMITH, Miller Ngo ([id number]) on 08/21/2018 9:13:29 PM
--- NOTE | 2018-08-21 09:03 | EKG Report ---
Test Performed on : 08/19/2018 7:18:09 PM Test Reason : ams Blood Pressure : / mmHG Vent. Rate : 124 BPM Atrial Rate : 250 BPM P-R Int : 000 ms QRS Dur : 112 ms QT Int : 312 ms P-R-T Axes : 097 -25 -21 degrees QTc Int : 448 ms Atrial flutter. with variable AV block. Low voltage QRS Right bundle branch block Inferior infarct , age undetermined Abnormal ECG When compared with ECG of 17-JUL-2018 23:09, Atrial flutter. has replaced Atrial fibrillation. QRS duration has decreased Inferior infarct is now present Inverted T waves have replaced nonspecific T wave abnormality in Inferior leads Unconfirmed Result
[2018-08-21] MEDS: PREDNISONE PO SCH (09:09)
[2018-08-21] MEDS: TYLENOL PO PRN ×2 (09:09→16:58)
[2018-08-21] MEDS: DIFLUCAN PO SCH (09:10)
[2018-08-21] MEDS: CULTURELLE PO SCH (09:10)
[2018-08-21] MEDS: LASIX IV SCH (09:10)
[2018-08-21] MEDS: ELIQUIS PO SCH ×2 (09:10→21:25)
[2018-08-21] MEDS ORDERED: CARDIZEM PO ONE (15:02)
--- NOTE | 2018-08-21 15:51 | PROGRESS NOTE ---
DATE: 08/21/2018 SUBJECTIVE: Patient reports feeling better. She denies shortness of breath or chest discomfort. On supplemental oxygen per nasal cannula. OBJECTIVE: Vital Signs: Blood pressure 150/80, heart rate 119, oxygen saturation 95% on nasal cannula oxygen at 2 L/minute. Neck: Jugular venous distention cannot be appreciated. Chest: Clear to auscultation. Cardiac: Reveals an irregular rate and rhythm without appreciable murmur or gallop. Extremities: Demonstrate trace edema. LABORATORY DATA: Includes Point of Care, glucose 226. IMPRESSION: 1. Recent dyspnea symptoms. Suspected combination of acute diastolic heart failure as well as asthmatic bronchitis. Patient clinically improving. 2. Persistent atrial arrhythmias. Heart rate remains elevated despite recent adjustments. 3. Sinus node dysfunction. 4. Hypertensive cardiovascular disease with evidence of diastolic heart failure. 5. Acute on chronic kidney disease. 6. Type 2 diabetes mellitus. 7. Obesity. 8. Non-Hodgkin's lymphoma stage IV, in remission. 9. Possible obstructive sleep apnea. RECOMMENDATIONS: 1. Continue gentle diuresis. 2. Adjust diltiazem to improve rate control. 3. Continue bronchodilators and short course of cortical steroids. cc: MD Loc Leigh MD MTDD
[2018-08-21] MEDS ORDERED: CARDIZEM CD PO SCH ×2 (21:00→21:32)
[2018-08-21] MEDS: CARDIZEM CD PO SCH (21:26)
[2018-08-22] MEDS ORDERED: XANAX PO ONE (00:15)
[2018-08-22] MEDS: ROCEPHIN 1 GM in NS 50 ML IV SCH (03:20)
[2018-08-22] MEDS: XOPENEX NEB INH SCH ×4 (03:30→22:25)
[2018-08-22] MEDS: ATROVENT NEB INH SCH ×4 (03:30→22:25)
--- NOTE | 2018-08-22 05:19 | PROGRESS NOTE ---
DATE: 08/21/2018 HISTORY OF PRESENT ILLNESS: The patient is a 78-year-old white female admitted to the hospital on 08/20/2018 with shortness of breath, rapid atrial fibrillation, UTI. I did review the whole H P that was done by the hospitalist. The patient recently discharged from the rehab and is well known to Dr. Newsome. Appreciate his consult. He has been referring to erythema consult in [place]. She has a tachy-shira syndrome. Obviously she needs some pacemaker and control the heart rate. She is also dwindling in her activities of daily living, needs a dependent on the total care. PAST MEDICAL HISTORY: Reviewed. PAST SURGICAL HISTORY: Reviewed. MEDICINES: Reviewed. ALLERGIES: IV dye. PHYSICAL EXAMINATION: Vital Signs: Temperature is 98, heart rate is 126, blood pressure is 134/70, O2 sats is 92% on 2 L nasal cannula. General: Is obese, not in respiratory distress on oxygen. Cardiac: The patient is in rapid atrial fibrillation. Lungs: Bilateral air entry. Abdomen: Belly is soft and nontender. Extremities: Swelled up with chronic lymphedema. Eason was placed. Neurologic: No obvious neurological deficits. INVESTIGATIONS: CBC: White cell count 3.7, hematocrit 31, MCV is high, platelets 139,000. ABG: pH is 7.32, pCO2 is 68, PO2 is 82 on 28%. SMA 7: Sodium 144, potassium 4.5, chloride 100, BUN 64, creatinine 2.0, glucose 106. Cardiac enzymes were negative. TSH is 10.4. Urine cultures gram-positive cocci. ASSESSMENT AND PLAN: 1. Urinary tract infection with gram-positive cocci. Currently on intravenous ceftriaxone. I will follow up on culture and sensitivity. 2. Rapid atrial fibrillation with decompensation on Eliquis 5 mg 2 twice a day, diltiazem 120 p.o. twice a day and 180 mg at bedtime and still tachycardic. The patient could not tolerate flecainide. 3. Azotemia. Currently on intravenous Lasix. 4. Hypothyroidism on Synthroid. 5. Gastrointestinal prophylaxis with 40 mg of omeprazole. 6. Repeat the labs in the morning and also physical therapy consult for ambulation. I appreciated Dr. Salgado's consult. 7. Non-Hodgkin's lymphoma off the chemotherapy. We will discuss with Dr. Pedrito Newsome and follow up. cc: Loc Rodríguez MD
[2018-08-22] MEDS: PRILOSEC PO SCH (06:53)
[2018-08-22] MEDS: SYNTHROID PO SCH (06:54)
[2018-08-22] MEDS: HUMALOG SUBQ SCH ×4 (06:57→21:44)
[2018-08-22] MEDS: CULTURELLE PO SCH (08:24)
[2018-08-22] MEDS: PREDNISONE PO SCH (08:24)
[2018-08-22] MEDS: ELIQUIS PO SCH ×2 (08:24→21:44)
[2018-08-22] MEDS: LASIX IV SCH (08:24)
[2018-08-22] MEDS: CARDIZEM CD PO SCH ×2 (08:25→21:44)
[2018-08-22] MEDS: DIFLUCAN PO SCH (08:25)
[2018-08-22 08:37] LABS: CALCIUM 9.2 mg/dL (8.8-10.2); CREATININE 1.3 mg/dL (0.5-0.9); POTASSIUM 5.1 mmol/L (3.5-5.1)
[2018-08-22] MEDS ORDERED: LOPRESSOR PO ONE (16:39)
--- NOTE | 2018-08-22 16:56 | PROGRESS NOTE ---
DATE: 08/22/2018 SUBJECTIVE: Patient continues without shortness of breath or chest discomfort. She is feeling progressively better. OBJECTIVE: Vital signs: Blood pressure 139/70, heart rate 125 and regular. ECG monitor appears to demonstrate atrial flutter. Oxygen saturation 97% on nasal cannula oxygen. Neck: There is no significant jugular venous distention. Chest: Clear to auscultation. Cardiac Exam: Reveals a regular tachycardia without appreciable murmur or gallop. There is no evidence of peripheral edema. LABORATORY DATA: Includes a sodium 143, potassium 5.1, chloride 100, carbon dioxide 32, BUN 53, creatinine 1.3, glucose 112. IMPRESSIONS: 1. Recent respiratory difficulty related to acute diastolic heart failure as well as asthmatic bronchitis. Patient clinically improving. 2. Persistent atrial arrhythmias. Patient currently in atrial flutter with rapid ventricular rate despite current medication regimen. 3. Sinus node dysfunction. 4. Hypertensive cardiovascular disease with evidence of diastolic heart failure. 5. Acute on chronic kidney disease, improving. 6. Type 2 diabetes mellitus. 7. Obesity. 8. Non-Hodgkin's lymphoma, stage IV, in remission. 9. Possible obstructive sleep apnea. RECOMMENDATIONS: 1. Continue gentle diuresis. 2. Add low-dose metoprolol for rate control. 3. Ultimately patient to have arrhythmia/electrophysiology consult to take up management of her paroxysmal atrial arrhythmias and sinus node dysfunction. She has an appointment in approximately 2 weeks in [place] regarding this. cc: MD Loc Leigh MD
[2018-08-22] MEDS: LOPRESSOR PO SCH (21:44)
--- NOTE | 2018-08-22 22:02 | PROGRESS NOTE ---
DATE: 08/22/2018 SUBJECT: The patient still very tachycardic, heart rate is 130 and atrial fibrillation not able to walk. Eason was placed. Slowly dwindling and Dr. Newsome report was appreciated. EXAM: Temperature is 98 degrees, pulse is 126, blood pressure 130/69.HEENT: Within normal limits. Neck: Supple. Chest: Clear. Heart: Sounds are irregular, erratic , fast. Belly: Soft, nontender and lymphedema in both legs. INVESTIGATIONS: None reported except SMA 7 sodium 143, potassium 5.1, BUN 53 , creatinine 1.3, glucose 199. Cardiac enzymes were negative. ProBNP 200. Microbiology cultures reported in the urine staph epidermidis and oxacillin resistance and penicillin resistance sensitive to Macrobid and vancomycin. ASSESSMENT AND PLAN: 1. Rapid atrial fibrillation. In the past patient could not tolerate beta blockers and flecainide, continue on Cardizem, added metoprolol to rate control and at this time she needs a pacemaker unable to control her heart rate and if we do too much she will go to sinus dysfunction I think. Dr. Newsome is working on [facility] in [place]. 2. Urinary tract infection due to methicillin-resistant Staphylococcus epidermidis, patient is on ceftriaxone, will slowly discontinue and changed to Macrobid . 3. Kidney injury stable. 4. Non-Hodgkin lymphoma stable . 5. Atrial fibrillation on Eliquis. 6. History of bronchitis, Dr. Newsome started on prednisone, hypothyroidism on Synthroid and discussed with nurses needs out of the bed with physical therapy for ambulation. She is slowly deconditioning. LEVEL OF DOCUMENTATION: 25 minutes. cc: Loc Rodríguez MD [facility]
[2018-08-23] MEDS: ROCEPHIN 1 GM in NS 50 ML IV SCH (01:43)
[2018-08-23] MEDS: XOPENEX NEB INH SCH ×4 (03:29→21:38)
[2018-08-23] MEDS: ATROVENT NEB INH SCH ×4 (03:29→21:38)
[2018-08-23] MEDS: HUMALOG SUBQ SCH ×4 (06:13→22:12)
[2018-08-23] MEDS: SYNTHROID PO SCH (06:14)
[2018-08-23] MEDS: PRILOSEC PO SCH (06:14)
--- NOTE | 2018-08-23 06:54 | EKG Report ---
Test Performed on : 08/22/2018 5:30:22 PM Test Reason : elevated heart rate Blood Pressure : / mmHG Vent. Rate : 141 BPM Atrial Rate : 282 BPM P-R Int : 000 ms QRS Dur : 134 ms QT Int : 366 ms P-R-T Axes : -78 -60 -42 degrees QTc Int : 560 ms Atrial flutter. with 2:1 AV conduction. Right bundle branch block Left anterior fascicular block Bifascicular block Inferior infarct (cited on or before 19-AUG-2018) Abnormal ECG When compared with ECG of 20-AUG-2018 06:15, ST now depressed in Inferior leads T wave inversion more evident in Anterior leads Nonspecific T wave abnormality no longer evident in Lateral leads Confirmed by Colin SMITH, Miller Ngo ([id number]) on 08/23/2018 6:58:17 AM
[2018-08-23] MEDS: DIFLUCAN PO SCH (08:21)
[2018-08-23] MEDS: CULTURELLE PO SCH (08:21)
[2018-08-23] MEDS: LASIX IV SCH (08:21)
[2018-08-23] MEDS: PREDNISONE PO SCH (08:21)
[2018-08-23] MEDS: ELIQUIS PO SCH ×2 (08:21→22:10)
[2018-08-23] MEDS: CARDIZEM CD PO SCH ×2 (08:22→22:10)
[2018-08-23] MEDS: LOPRESSOR PO SCH ×2 (08:22→22:10)
[2018-08-23] MEDS ORDERED: CARDIZEM CD PO SCH (09:00)
[2018-08-23] MEDS: ZOFRAN PO PRN ×2 (12:20→18:15)
--- NOTE | 2018-08-23 15:29 | PROGRESS NOTE ---
DATE: 08/23/2018 CARDIOLOGY FOLLOW-UP NOTE: SUBJECTIVE: Patient denies shortness of breath or chest discomfort on nasal cannula oxygen. OBJECTIVE: Vital Signs: Blood pressure 142/79, heart rate 92, and irregular. Oxygen saturation 98% on nasal cannula oxygen at 2 L per minute. Neck: There is no significant jugular venous distention. Chest: Clear to auscultation. Cardiac: Exam reveals an irregular rate and rhythm without appreciable murmur or gallop. There is no evidence of peripheral edema. IMPRESSION: 1. Recent respiratory difficulty related to acute diastolic heart failure in setting of rapid heart rate response to atrial tachyarrhythmias as well as asthmatic bronchitis. Patient improved clinically. 2. Persistent atrial arrhythmias. Patient has been in atrial fibrillation and at times atrial flutter with rapid ventricular rate. Heart rate currently controlled on current regimen. 3. Asthmatic bronchitis with recent exacerbation. 4. Sinus node dysfunction. 5. Hypertensive cardiovascular disease with diastolic left ventricular dysfunction. 6. Gcuwx-ia-mirsmww kidney disease, improving. 7. Type 2 diabetes mellitus. 8. Obesity. 9. Non-Hodgkin's lymphoma, stage IV, in remission. 10. Possible obstructive sleep apnea. RECOMMENDATIONS: 1. Continue current diltiazem and low-dose metoprolol for rate control. 2. Change IV Lasix to oral Lasix. 3. Taper prednisone. Add inhaled corticosteroid. 4. Ultimately, patient to have outpatient evaluation by arrhythmia/electrophysiology to consider further management of paroxysmal atrial fibrillation and sinus node dysfunction. cc: MD Loc Leigh MD
[2018-08-23] MEDS: PULMICORT INH SCH (20:15)
--- NOTE | 2018-08-23 21:15 | PROGRESS NOTE ---
DATE: 08/23/2018 SUBJECTIVE: The patient is a little better and continues to be atrial fibrillation. Metoprolol was added. Lasix changing to the oral dose. Patient has been on steroids and will discuss with Dr. Newsome. She is not a candidate for outpatient set up because of immobility. Blood sugars were running high because of steroids. EXAMINATION: Vital Signs: Temp is 98, heart rate is 145. Vitals are stable. Chest: Clear. Heart: Heart sounds are irregular. Abdomen: Belly is soft, nontender. Eason was placed. LABORATORY: Creatinine is 1.3, BUN 53, sodium 140, potassium 5.1, glucose 199. ASSESSMENT AND PLAN: 1. Acute kidney injury, improving. 2. Methicillin resistant Staph epidermidis, needs isolation. Sensitive to Macrobid. We will slowly changed to the by mouth. 3. Out of the bed with Physical Therapy. 4. Non-Hodgkin's lymphoma, stable and will discuss with Dr. Newsome. We will arrange as inpatient workup and will follow up. LEVEL OF DOCUMENTATION: 25 minutes. cc: Loc Rodríguez MD MTDD
[2018-08-23] MEDS: XANAX PO PRN (22:10)
[2018-08-24] MEDS: ROCEPHIN 1 GM in NS 50 ML IV SCH (01:50)
[2018-08-24] MEDS: XOPENEX NEB INH SCH ×4 (03:50→20:25)
[2018-08-24] MEDS: ATROVENT NEB INH SCH ×4 (03:50→20:25)
[2018-08-24] MEDS: HUMALOG SUBQ SCH ×4 (06:17→20:17)
[2018-08-24] MEDS: SYNTHROID PO SCH (06:23)
[2018-08-24] MEDS: PRILOSEC PO SCH (06:23)
[2018-08-24] MEDS: PULMICORT INH SCH ×2 (08:01→20:25)
[2018-08-24] MEDS: ELIQUIS PO SCH ×2 (08:52→20:17)
[2018-08-24] MEDS: CULTURELLE PO SCH (08:52)
[2018-08-24] MEDS: LOPRESSOR PO SCH ×2 (08:52→20:17)
[2018-08-24] MEDS: PREDNISONE PO SCH (08:53)
[2018-08-24] MEDS: DIFLUCAN PO SCH (08:53)
[2018-08-24] MEDS: CARDIZEM CD PO SCH ×2 (08:53→20:17)
[2018-08-24] MEDS ORDERED: LASIX PO SCH (09:00)
[2018-08-24] MEDS ORDERED: NS 250 ML IV ONE (16:16)
[2018-08-24] MEDS: XANAX PO PRN (20:15)
--- NOTE | 2018-08-24 20:47 | PROGRESS NOTE ---
DATE: 08/24/2018 SUBJECTIVE: Patient is doing better. She has an appointment to see the furniture sander on September 05. REVIEW OF SYSTEMS: None reported. She is still bedridden. EXAMINATION: Vital Signs: Temp is 97, pulse is 70, respirations 18, blood pressure 126/61, 92% on room air. HEENT: Within normal limits. Neck: Supple. No lymphadenopathy. No goiter. Chest: Bilateral air entry. Heart: Heart sounds are erratic. Abdomen: Belly is soft, nontender. LABORATORY: Urine cultures are Staph epidermatitis. ASSESSMENT AND PLAN: 1. Chronic atrial fibrillation. Continue on metoprolol and Cardizem. Going for EP study as an outpatient. 2. Non-Hodgkin's lymphoma. Stable. 3. MRSA. We will use Macrodantin. 4. Out of the bed. Continue present treatment. Will discharge in the morning and follow up outpatient. LEVEL OF DOCUMENTATION: 15 minutes. cc: Loc Rodríguez MD
[2018-08-25] MEDS: ROCEPHIN 1 GM in NS 50 ML IV SCH (02:21)
[2018-08-25] MEDS: XOPENEX NEB INH SCH ×2 (03:40→09:50)
[2018-08-25] MEDS: ATROVENT NEB INH SCH ×2 (03:40→09:50)
[2018-08-25] MEDS: HUMALOG SUBQ SCH ×2 (06:00→12:04)
[2018-08-25] MEDS: PRILOSEC PO SCH (06:10)
[2018-08-25] MEDS: SYNTHROID PO SCH (06:10)
[2018-08-25] MEDS: PREDNISONE PO SCH (08:49)
[2018-08-25] MEDS: CARDIZEM CD PO SCH (08:49)
[2018-08-25] MEDS: DIFLUCAN PO SCH (08:49)
[2018-08-25] MEDS: CULTURELLE PO SCH (08:49)
[2018-08-25] MEDS: ELIQUIS PO SCH (08:49)
[2018-08-25] MEDS: LOPRESSOR PO SCH (08:49)
[2018-08-25] MEDS: PULMICORT INH SCH (09:50)
[2018-08-25 11:48] VITALS: BP 135/72
--- NOTE | 2018-08-27 17:53 | DISCHARGE SUMMARY ---
ADMISSION DATE: 08/19/2018 DISCHARGE DATE: 08/25/2018 DISCHARGING DIAGNOSIS: Acute decompensated diastolic heart failure with chronic atrial fibrillation with tachybrady syndrome unable to control with flecainide and beta blockers. SECONDARY DIAGNOSIS: 1. Chronic atrial fibrillation currently rate control and anticoagulation. 2. Acute kidney injury due to azotemia . 3. Diastolic heart failure stable. 4. Cellulitis of both legs with chronic lymphedema. 5. Type 2 diabetes. 6. Hiatal hernia . 7. Hypertension. 8. Gout. 9. Hypothyroidism. 10. Non-Hodgkin lymphoma stage IV in remission under chemo on hold . 11. Nontoxic multinodular goiter. 12. Bilateral knee replacement with osteoarthritis of both knees. 13. Urinary tract infection with methicillin-resistant Staph epidermidis 14. Deconditioning . 15. Port-A-Cath on the right side. CONSULTS: Pedrito Newsome MD. BRIEF HISTORY: Please see the H and P that was done by hospitalist on 08/20/2018. In brief she is a 78-year-old white obese female with above problems recently discharged from the rehab for home and was brought in by the family with shortness of breath, cough and wheezing and swelling. She also had azotemia. Patient was in rapid atrial fibrillation. In the past the patient was given flecainide, beta blockers that precipitated into symptomatic sinus bradycardia. At this time Dr. Newsome agreed she needs electrophysiology study and possible pacemaker. The patient has an appointment to see mail caller in [place] on 09/05/2018. During this hospital course patient was added low dose of beta blockers, some steroids for wheezing. Blood sugars were running high. Patient was also has UTI given IV antibiotics subsequently changed to the Macrobid. Eason was discontinued. Patient was given physical therapy and felt better and sent home in a stable condition. LABS: CBC. White cell count 3.7, hematocrit 31, platelets 139,000. PT 20, INR 1.6. ABG on 2 L pH is 7.32, pCO2 68, PO2 82, sodium 143, potassium 5, chloride 100, BUN 53, creatinine 1.3. Urine cultures positive for Staph epidermidis. Renal ultrasound both kidneys were normal, 2.5 cm right renal cyst. CT head right mastoid effusion. Chest x-ray mild CHF. DISCHARGE INSTRUCTIONS: 1. Allopurinol 300 p.o. daily. 2. Prilosec 40 mg daily. 3. Metformin 500 at bedtime. 4. Probiotics 1 tablet daily. 5. Lasix 40 daily. 6. Ventolin HFA q.6 as needed . 7. Xanax 0.25 once daily. 8. Lyrica 25 at bedtime. 9. Eliquis 5 mg p.o. b.i.d. 10. Synthroid 125 daily. 11. Potassium 10 mEq daily . 12. Tylenol p.m. as needed. 13. Cardizem CD 120 p.o. b.i.d. 14. Macrobid 100 p.o. b.i.d. for 10 days. Follow up outpatient electrophysiology clinic on 09/05 as well as in my office. Patient could not tolerate beta blockers and flecainide due to significant bradycardia. Outpatient home health care. cc: Loc Rodríguez MD
--- NOTE | 2018-08-29 19:57 | PROVIDER DOCUMENTATION ---
This chart was entered by Wen Mcclellan Scribe, acting as scribe for Umberto Winslow MD. HPI-General Adult - General Chief Complaint: Shortness of Breath Stated Complaint: AMS Time Seen by Provider: 08/19/18 19:14 Source: patient, family Allergies/Adverse Reactions: Patient Allergies Allergy/AdvReac Type Severity Reaction Status Date / Time Iodinated Contrast- Oral and Allergy ITCHING Verified 08/19/18 19:34 IV Dye morphine Allergy ITCHING Verified 08/19/18 19:34 Home Medications: Home Medication List Medication Instructions Recorded Confirmed Last Taken Type Allopurinol 300 mg PO DAILY 09/08/14 08/19/18 07/12/18 History Metformin [Glucophage] 500 mg PO QHS 09/08/14 08/19/18 07/12/18 History Omeprazole [Prilosec] 40 mg PO DAILY@0700 09/08/14 08/19/18 07/12/18 History Furosemide 40 mg PO DAILY 04/06/17 08/19/18 07/12/18 History Lactobacillus Rhamnosus GG 1 each PO DAILY 04/06/17 08/19/18 07/12/18 History [Probiotic] Albuterol Sulfate Inhaler 1 puff INH PRN PRN 07/01/18 08/19/18 Unknown History [Ventolin Hfa] Alprazolam [Xanax] 0.25 mg PO TID 07/01/18 08/19/18 07/12/18 History Pregabalin [Lyrica] 25 mg PO QHS 07/04/18 08/19/18 07/12/18 History Apixaban [Eliquis] 5 mg PO BID #60 tab 07/07/18 08/19/18 07/12/18 Rx Levothyroxine [Synthroid] 125 microgm PO DAILY@0700 #90 tab 07/07/18 08/19/18 Rx Potassium Chloride E.r. [Micro-K] 10 meq PO DAILY #90 cap 07/07/18 08/19/18 Rx Acetaminophen/Diphenhydramine 1 each PO HS #30 tablet 07/21/18 08/19/18 Unknown Rx [Tylenol Pm] Diltiazem C.d. [Cardizem Cd] 120 mg PO BID #60 capsule 08/25/18 Unknown Rx Nitrofurantoin [place]/Macrocryst 100 mg PO BID #20 cap 08/25/18 Unknown Rx [Macrobid] - History of Present Illness -Gen Adult Nature of Presenting Problems: Pt is 78/F presenting to ED via EMS. PT has been SOB and 02 sts were low. Pt was reported as being "slurry" in speech as well as fatigued and not able to cold a conversation w/ family. She sts that she was worried that she may be on too much medication. Pt has been home from [facility] for [facility] and family sts that she has been declining since. Pt has hx of CHF and Lymphoma. Location of Pain/Injury: reports: none Pain Radiation: reports: no radiation Quality of Pain: reports: none Severity: reports: moderate Onset/Duration: reports: gradual Timing: reports: still present Context/Activities at Onset: reports: none Modifying Factors: improves with: nothing Associated Symptoms: reports: shortness of breath, weakness. denies: chest pain , diaphoresis, fever/chills Review of Systems - Adult - REVIEW OF SYSTEMS - ADULT Constitutional: reports: no symptoms reported. denies: chills, fever Eyes: reports: no symptoms reported Ears, Nose, Mouth & Throat: reports: no symptoms reported Cardiovascular: reports: edema. denies: chest pain Respiratory: reports: no symptoms reported, shortness of breath, wheezing. denies: cough Gastrointestinal: reports: no symptoms reported. denies: diarrhea, nausea, vomiting Genitourinary: reports: no symptoms reported Musculoskeletal: reports: no symptoms reported Integumentary: reports: no symptoms reported Neurological: reports: no symptoms reported. denies: dizziness/vertigo, headache/migraines Psychiatric: reports: no symptoms reported Endocrine: reports: no symptoms reported Hematologic/Lymphatic: reports: no symptoms reported Allergic/Immunologic: reports: no symptoms reported All Other Systems: Reviewed and Negative Past History - Adult - PAST MEDICAL HISTORY-ADULT Review of Records: reports: Old Records Reviewed, Nursing Assessment Review, Medications Reviewed, Social history reviewed & non-contributory. Major Childhood Illnesses: reports: denies history Cardiovascular: reports: HTN, hyperlipidemia Respiratory: reports: asthma Gastrointestinal: reports: GERD Obstetrical/Gynecological: reports: denies history Genitourinary: reports: denies history Musculoskeletal: reports: denies history Neurological: reports: denies history Endocrine/Immune: reports: Diabetes, thyroid disorder Other Conditions: reports: denies history - PRIOR SURGERIES/PROCEDURES Surgical/Procedure History: reports: cholecystectomy, hysterectomy, orthopedic ( extremity) (knee replacement) - IMMUNIZATION STATUS Childhood Immunizations: See Nurse Assessment Flu Vaccine: See Nurse Assessment - FAMILY HISTORY Family History: reviewed, not pertinent - SOCIAL HISTORY Smoking: quit greater than 1 year Substance Use: none/never Alcohol Use Frequency: never Living Situation: family Physical Exam-General - CONSTITUTIONAL General Appearance: alert, no apparent distress, obese - EYES Eyes: PERRL/EOMI - HEAD, EARS, NOSE, MOUTH & THROAT HENMT: normocephalic/atraumatic, moist mucous membranes, normal ENT inspection, TMs normal, pharynx normal - NECK Neck: non-tender, full range of motion, supple, normal inspection - RESPIRATORY Respiratory: chest non-tender, normal breath sounds, wheezing - CARDIOVASCULAR Cardiovascular: tachycardia (126), other (Pt has 3+ edema in lower extremities bilaterally) - GASTROINTESTINAL (ABDOMEN) Abdominal Exam: normal bowel sounds, non tender, soft - LYMPHATIC Lymphatic: no adenopathy - MUSCULOSKELETAL Back Exam: normal inspection, no CVA tenderness, no vertebral tenderness Extremity: normal range of motion, non-tender, normal gait, normal inspection - SKIN Integumentary: normal color, warm/dry - NEUROLOGIC Neurologic: grossly normal - PSYCHIATRIC Psych/Mental Status: normal mood/affect, normal thought content, normal thought process, oriented x 3 Progress - PLAN OF CARE/RESULTS Progress/Plan/Lab Results: Vital Signs - 8 hr 08/19/18 19:19 08/19/18 19:20 08/19/18 19:23 Temperature Pulse Rate 139 H Respiratory Rate 19 Blood Pressure 148/92 O2 Sat by Pulse Oximetry 91 L 92 L 95 08/19/18 19:28 08/19/18 19:30 08/19/18 19:40 Temperature 97.9 F Pulse Rate 128 H 126 H 126 H Respiratory Rate 16 17 24 Blood Pressure 148/92 O2 Sat by Pulse Oximetry 91 L 97 91 L 08/19/18 19:52 08/19/18 20:00 08/19/18 20:02 Temperature Pulse Rate 127 H 128 H 128 H Respiratory Rate 14 28 H 15 Blood Pressure 168/87 O2 Sat by Pulse Oximetry 97 08/19/18 20:10 Temperature Pulse Rate 127 H Respiratory Rate 20 Blood Pressure O2 Sat by Pulse Oximetry 97 Laboratory Results - last 24 hr 08/19/18 08/19/18 19:38 19:38 WBC 4.18 L RBC 2.95 L Hgb 10.3 L Hct 32.5 L MCV 110.2 H MCH 34.9 H MCHC 31.7 L RDW Std Deviation 14.8 H Plt Count 168 MPV 9.9 Immature Gran % (Auto) 1.2 H Neut % (Auto) 52.0 Lymph % (Auto) 30.1 [place] % (Auto) 14.6 H Eos % (Auto) 1.9 Baso % (Auto) 0.2 Immature Gran # (Auto) 0.05 H Neut # (Auto) 2.17 Lymph # (Auto) 1.26 [place] # (Auto) 0.61 H Eos # (Auto) 0.08 Baso # (Auto) 0.01 Plasma Lactate 0.7 Orders Category Date Time Status CHEST-PORTABLE [RAD] Stat Exams 08/19/18 19:45 Taken CBC WITH ELECTRONIC DIFF [HEME] Stat Lab 08/19/18 19:38 Completed COMPREHENSIVE METABOLIC PANEL [CHEM] Stat Lab 08/19/18 19:38 Received LACTATE, PLASMA [CHEM] Stat Lab 08/19/18 19:38 Completed pro-bnp [PRO B-NATRIURETIC PEPTIDE] Stat Lab 08/19/18 19:38 Received EKG [EKG] Stat Ther 08/19/18 19:14 Ordered Result Diagrams: 08/20/18 07:15 08/22/18 07:42 - EKG 1 Time of EKG reading by physician:: 20:10 EKG Read and Signed by:: Umberto Winslow EKG Interpretation (*Must complete 3 of following elements*): Abnormal (sinus vs. a Flutter, constantly in A-fib. Atrial flutter w/ variable AV block Low voltage QRS, Right bundle branch block. Inferior infarct, age undetermined, Anormal ECG) Rate: 124 - XRAY 1 XRAY: Bilateral XRAY Study: Chest Impression: Abnormal ( FINDINGS: The lungs are well expanded. The heart is not enlarged. No change in the right jugular portacatheter. The vessels are borderline mildly distended. There are no infiltrates. No effusion identified. IMPRESSION: Mild pulmonary edema. Follow-up PA and lateral recommended. Electronically signed by Augusto Horan 08/19/2018 8:24 PM [id number]) Departure - Departure Date of Disposition Decision: 08/19/18 Time of Disposition Decision: 19:40 DIAGNOSIS: CHF (congestive heart failure) Disposition: ADMITTED INPATIENT 09 Certified Medical Emergency: Emergent Condition: Stable - Critical Care Note This patient required my direct & personal management of CC.: No Attestation - Physician/ GULSHAN Attestation Patient care was provided by Advanced Practice Provider:: No The physician spent face to face time with patient:: Yes Advanced Practice Provider documentation review:: Supervising physician onsite and consulted in the evaluation and care of this patient. The physician did have a face to face encounter with the patient. This chart was documented by the indicated scribe, (Wen Mcclellan, [place]) and accurately reflects the services I performed and decisions made by me, Umberto Winslow MD, as attested by the provider's signature.
== END 2018-08-25 13:06 | disposition home health service (06) | DRG 291 ==
LOC: SUPCPDRO → ED 19:12 → 3N 23:16 → SUATTDRO 23:16
PROVIDERS: ADMIT Internal Medicine; ATTEND Internal Medicine
CPT/HCPCS: 51702; 70450; 71010; 71045; 80048; 80053; 81001; 82550; 82805; 82948; 83605; 83735; 83880; 84132; 84443; 84484; 85025; 85610; 85730; 87077; 87088; 87186; 93005; 93010; 93976; 94640; 94761; 94799; 96374; 97116; 97162; 97530; 99285; A9270; J0696; J1815; J1940; J2930; J7040; J7506; J7512; XXXXX

== ENCOUNTER 2018-09-30 10:08 | Inpatient (IN) ==
[2018-09-30 11:23] LABS: BASO# 0.01 X1000 (0.0-0.2); BASO% 0.2 % (0.0-0.8); EOS# 0.17 X1000 (0.0-0.7); EOS% 3.3 % (0.0-10.0); HEMATOCRIT 31.4 % (37.0-47.0); IMM GRAN# 0.04 X1000 (0.0-0.04); IMM GRAN% 0.8 % (0.0-0.5); LYMPH# 0.88 X1000 (1.2-3.4); LYMPH% 16.8 % (20.5-51.1); MCH 34.8 PG (27-31); MCHC 31.8 g/dL (33-37); MCV 109.4 FL (81-99); MONO% 15.3 % (1.7-9.3); MPV 10.4 FL (7.4-10.4); NEUT# 3.33 X1000 (1.4-6.5); NEUT% 63.6 % (42.2-75.2); PLT 138 X1000 (130-400); RBC 2.87 XMIL (4.2-5.4); WBC 5.23 X1000 (4.8-10.8)
[2018-09-30 11:25] LABS: URINE SOURCE CATH
[2018-09-30 11:30] LABS: BILIRUBIN URINE NEGATIVE (NEGATIVE); BLOOD URINE MODERATE (NEGATIVE); COLOR YELLOW; GLUCOSE URINE NEGATIVE (NEGATIVE); KETONE URINE NEGATIVE (NEGATIVE); LEUKOCYTES URINE LARGE (NEGATIVE); NITRITE URINE NEGATIVE (NEGATIVE); PH URINE 5.5; PROTEIN URINE 50 mg/dL (NEGATIVE); SP GRAVITY URINE 1.017; TURBIDITY URINE HAZY (CLEAR); UROBILINOGEN URINE NORMAL (NORMAL)
[2018-09-30 11:38] LABS: UR EPITHELIAL CELLS <10 /HPF (<10); URINE BACTERIA NEGATIVE /HPF; URINE CASTS NONE SEEN; URINE CRYSTALS NONE SEEN; URINE RBC <10 /HPF (<10); URINE SMALL ROUND CELLS NONE SEEN; URINE WBC TNTC /HPF (<10); URINE YEAST PRESENT
[2018-09-30 11:45] LABS: ALB/GLOB RATIO 1.2; ALBUMIN 3.2 g/dL (3.5-5.0); CALCIUM 9.2 mg/dL (8.8-10.2); CREATININE 1.3 mg/dL (0.5-0.9); POTASSIUM 4.9 mmol/L (3.5-5.1); TOTAL BILIRUBIN 0.48 mg/dL (0.20-1.00); TOTAL PROTEIN 5.8 g/dL (6.3-8.3)
--- NOTE | 2018-09-30 11:45 | Diag Imaging Result Doc PS360 ---
EXAM: CHEST-PORTABLE - 09/30/2018 HISTORY: ams TECHNIQUE: Portable chest COMPARISON: 08/20/2018 FINDINGS: Heart size appears mildly enlarged and mildly increased compared to prior. There has been interval decrease in right basilar opacity. Lungs appear essentially clear of acute changes. There is no substantial pleural effusion or pneumothorax identified. Central venous catheter remains in place. IMPRESSION: Mild cardiomegaly. No other evidence of acute disease. Electronically signed by Tripp Lees 09/30/2018 11:43 AM
--- NOTE | 2018-09-30 12:10 | Diag Imaging Result Doc PS360 ---
EXAM: CT HEAD W/O CONTRAST - 09/30/2018 HISTORY: Head injury TECHNIQUE: CT head without contrast COMPARISON: 08/20/2018 FINDINGS: There is no evidence of intracranial hemorrhage, mass effect, midline shift, or hydrocephalus. There is no evidence of infarct, although acute infarcts may not be immediately visible. There is no evidence of skull fracture. IMPRESSION: No visible acute intracranial abnormality. No evidence of intracranial injury. This exam was performed using automated exposure control, adjustment of mA or kV according to patient size, and/or use of iterative reconstruction technique. Electronically signed by Tripp Lees 09/30/2018 12:07 PM
[2018-09-30 12:13] LABS: UR AMPHETAMINES QUAL NONE DETECTED (NONE DETECT); UR BARBITUATES QUAL NONE DETECTED (NONE DETECT); UR BENZODIAZEPIN QUAL PRESUMPTIVE POSITIVE (NONE DETECT); UR CANNABINOIDS QUAL NONE DETECTED (NONE DETECT); UR COCAINE QUAL NONE DETECTED (NONE DETECT); UR METHADONE QUAL NONE DETECTED (NONE DETECT); UR OPIATES QUAL NONE DETECTED (NONE DETECT); UR OXYCODONE QUAL NONE DETECTED (NONE DETECT); UR PCP QUAL NONE DETECTED (NONE DETECT)
[2018-09-30 12:22] LABS: ALLEN TEST YES; BE 1.7 mmoll (-3.0-3.0); BLOOD TYPE ARTERIAL; HCO3-(ACT) 26.2 mmoll (20.0-26.0); METHB 0.8 % (0.0-1.5); O2(CT) 13.6 mL/dL (15.0-23.0); O2HB 95.4 % (95.0-99.0); PO2(98.6) 99 mmHg (60-100); SAMPLE BLOOD; SAO2 98.2 % (95.0-100.0)
[2018-09-30 12:25] LABS: MODALITY CANNULA; PCO2(98.6) 59 mmHg (35-45)
[2018-09-30] MEDS ORDERED: ROCEPHIN 1 GM in NS 50 ML IV SCH (13:00)
[2018-09-30 13:20] LABS: INR 1.55; PROTIME 19.8 Seconds (11.0-16.0)
[2018-09-30 13:21] LABS: PTT 40.2 Seconds (22.3-41.8)
--- NOTE | 2018-09-30 14:10 | PROVIDER DOCUMENTATION ---
This chart was entered by Juli Hernandez Scribe, acting as scribe for Helen Choe MD. HPI-General Adult - General Chief Complaint: Altered Mental Status Stated Complaint: AMS Time Seen by Provider: 09/30/18 10:14 Source: patient, family, old records Allergies/Adverse Reactions: Patient Allergies Allergy/AdvReac Type Severity Reaction Status Date / Time Iodinated Contrast- Oral and Allergy ITCHING Verified 09/30/18 13:35 IV Dye morphine Allergy ITCHING Verified 09/30/18 13:35 Home Medications: Home Medication List Medication Instructions Recorded Confirmed Last Taken Type Omeprazole [Prilosec] 40 mg PO DAILY@0700 09/08/14 09/30/18 09/30/18 History Lactobacillus Rhamnosus GG 1 each PO DAILY 04/06/17 09/30/18 07/12/18 History [Probiotic] Alprazolam [Xanax] 0.25 mg PO TID 07/01/18 09/30/18 07/12/18 History Pregabalin [Lyrica] 25 mg PO QHS 07/04/18 09/30/18 07/12/18 History Apixaban [Eliquis] 5 mg PO BID #60 tab 07/07/18 09/30/18 07/12/18 Rx Acetaminophen/Diphenhydramine 1 each PO HS #30 tablet 07/21/18 09/30/18 Unknown Rx [Tylenol Pm] Diltiazem C.d. [Cardizem Cd] 120 mg PO BID #60 capsule 08/25/18 09/30/18 Unknown Rx Acetaminophen/Diphenhydramine 1 tab PO QHS PRN 09/30/18 09/30/18 Unknown History [Tylenol Pm] Allopurinol 2 tab PO DAILY 09/30/18 09/30/18 Unknown History Digoxin 1 tab PO DAILY 09/30/18 09/30/18 Unknown History Escitalopram [Lexapro] 1 tab PO DAILY 09/30/18 09/30/18 Unknown History Fluticasone/Salmet 100/50 INH 1 puff INH BID 09/30/18 09/30/18 Unknown History [Advair 100/50 Diskus] Folic Acid 1 tab PO DAILY 09/30/18 09/30/18 Unknown History Levothyroxine [Synthroid] 1 tab PO DAILY 09/30/18 09/30/18 09/30/18 History Metoprolol [Lopressor] 1 tab PO BID 09/30/18 09/30/18 Unknown History Tamsulosin [Flomax] 1 tab PO DAILY 09/30/18 09/30/18 Unknown History - History of Present Illness -Gen Adult Nature of Presenting Problems: 78yof presents to the ED with chronic bilateral lower extremity swelling. The patient's family members report that the patient has been "more drowsy" since this morning. The family reports that the patient was seen at [facility] ED yesterday (09/29/18) for a fall and L knee pain. She denied syncope, head injury, and any other pain or injuries. The family reports that the patient has been unable to urinate since yesterday morning. The family reports the patient has ambulated normally with a walker until her fall on Tuesday (09/29/18). They report that the patient's customer account representative, Dr. Salgado, doubled the patient's Lasix from 20 units to 40 units approximately one month ago. The family reports that the patient is not currently taking Lasix. They report that the patient was hospitalized at [facility] approximately one week ago and was advised to discontinue her Lasix. They report that the patient was also given Flomax while at [facility]. According to EMR, the patient was hospitalized at [facility] for CHF exacerbation on 08/19/18. The family reports that the patient takes cardizem twice daily, and one norco last night. The patient does not currently c/o pain. The family denies fever, chills, nausea, vomiting, diarrhea. The patient's , daughter, and son are at bedside. The patient has hx of CHF, Afib, lymphoma, diabetes, HTN, former smoker. Location of Pain/Injury: reports: none Pain Radiation: reports: no radiation Quality of Pain: reports: none Severity: reports: moderate Onset/Duration: reports: this morning, other (chronic) Timing: reports: still present, constant Context/Activities at Onset: reports: none Modifying Factors: improves with: nothing Associated Symptoms: denies: fever/chills, nausea, vomiting Similar Symptoms Previously?: No Recently seen or treated by another doctor?: No Review of Systems - Adult - REVIEW OF SYSTEMS - ADULT Constitutional: denies: chills, fever Eyes: denies: discharge, dry eyes Ears, Nose, Mouth & Throat: denies: ear discharge, ear pain Cardiovascular: denies: chest pain, palpitations Respiratory: denies: cough, wheezing Gastrointestinal: denies: nausea, vomiting Genitourinary: denies: dysuria, hematuria Musculoskeletal: reports: other (chronic bilateral lower extremity swelling). denies: back pain, muscle aches, muscle weakness Integumentary: reports: no symptoms reported Neurological: reports: other (pt's family reports the pt is "more drowsy"). denies: dizziness/vertigo, headache/migraines Psychiatric: reports: no symptoms reported Endocrine: reports: no symptoms reported Hematologic/Lymphatic: reports: no symptoms reported Allergic/Immunologic: reports: no symptoms reported All Other Systems: Reviewed and Negative Past History - Adult - PAST MEDICAL HISTORY-ADULT Review of Records: reports: Old Records Reviewed, Nursing Assessment Review, Medications Reviewed Major Childhood Illnesses: reports: denies history Cardiovascular: reports: HTN, hyperlipidemia Respiratory: reports: asthma Gastrointestinal: reports: GERD Obstetrical/Gynecological: reports: denies history Genitourinary: reports: denies history Musculoskeletal: reports: denies history Neurological: reports: denies history Endocrine/Immune: reports: Diabetes, thyroid disorder Other Conditions: reports: denies history - PRIOR SURGERIES/PROCEDURES Surgical/Procedure History: reports: cholecystectomy, hysterectomy, orthopedic (extremity) (knee replacement) - IMMUNIZATION STATUS Childhood Immunizations: See Nurse Assessment Flu Vaccine: See Nurse Assessment - FAMILY HISTORY Family History: reviewed, not pertinent - SOCIAL HISTORY Smoking: other (former) Substance Use: denies Living Situation: family Physical Exam-General - PHYSICAL EXAM-ADULT Exam Limited by: obesity Initial Vital Signs Reviewed: Yes - CONSTITUTIONAL General Appearance: alert, no apparent distress, other (pt is somnolent, pt is easily arousable, pt answers questions appropriately, pt is wearing oxygen via nasal cannula) - EYES Eyes: PERRL/EOMI, pink conjunctivae - NECK Neck: non-tender, supple - RESPIRATORY Respiratory: decreased breath sounds (difficult to auscultation) - CARDIOVASCULAR Cardiovascular: regular rate, rhythm, no murmur. negative: bradycardia, tachycardia - GASTROINTESTINAL (ABDOMEN) Abdominal Exam: non tender, soft. negative: distended, guarding - MUSCULOSKELETAL Extremity: erythema (chronic bilateral lower extremities erythemic skin changes) , pedal edema (chronic bilateral lower extremities), swelling (chronic bilateral lower extremities, LLE larger than RLE (chronic according to family members)), other (healed scar on L knee from previous L knee replacement, brace on LLE from previous ED visit on 09/29/18 for L knee pain and fall). negative: deformity - SKIN Integumentary: normal color, warm/dry. negative: cyanosis, diaphoresis - NEUROLOGIC Neurologic: grossly normal, no motor/sensory deficits - PSYCHIATRIC Psych/Mental Status: other (pt is oriented to person and place, pt answers questions appropriately) Progress - PLAN OF CARE/RESULTS Progress/Plan/Lab Results: Vital Signs - 8 hr 09/30/18 10:25 Temperature 97.5 F L Pulse Rate 86 Respiratory Rate 18 Blood Pressure 163/71 O2 Sat by Pulse Oximetry 95 Laboratory Results - last 24 hr 09/30/18 10:40 POC Glucose 174 H Orders Category Date Time Status Cardiac Monitoring DIRECTED Care 09/30/18 10:25 Active Finger Stick Blood Sugar (ED) DIRECTED Care 09/30/18 10:25 Active Oxygen Therapy- ED Nursing DIRECTED Care 09/30/18 10:25 Active Saline Loc NOW Care 09/30/18 10:25 Active CHEST-PORTABLE [RAD] Stat Exams 09/30/18 10:[address] HEAD W/O CONTRAST [CT] Stat Exams 09/30/18 10:27 Ordered ABG [RESP] Routine Lab 09/30/18 10:25 Ordered BNP [PRO B-NATRIURETIC PEPTIDE] Stat Lab 09/30/18 10:38 Uncollected CBC WITH ELECTRONIC DIFF [HEME] Stat Lab 09/30/18 10:25 Uncollected CK PROFILE [SP CHEM] Stat Lab 09/30/18 10:25 Uncollected COMPREHENSIVE METABOLIC PANEL [CHEM] Stat Lab 09/30/18 10:25 Uncollected LACTATE, PLASMA [CHEM] Stat Lab 09/30/18 10:25 Uncollected PROTIME WITH INR [COAG] Stat Lab 09/30/18 10:25 Uncollected PTT [COAG] Stat Lab 09/30/18 10:25 Uncollected TROPONIN T Stat Lab 09/30/18 10:25 Uncollected URINALYSIS [URINALYSIS] Stat Lab 09/30/18 10:25 Uncollected URINE DRUG SCREEN Stat Lab 09/30/18 10:38 Uncollected Altered Mental Status Stat Oth 09/30/18 10:25 Ordered EKG [EKG] Stat Ther 09/30/18 10:25 Ordered Result Diagrams: 09/30/18 11:05 09/30/18 11:05 - EKG 1 Time of EKG reading by physician:: 10:35 EKG Read and Signed by:: Helen Choe Rate: 69 Rhythm: Atrial fibrillation [place] Spur: normal QRS: RBB - XRAY 1 XRAY Study: Chest Impression: Abnormal (FINDINGS: Heart size appears mildly enlarged and mildly increased compared to prior. There has been interval decrease in right basilar opacity. Lungs appear essentially clear of acute changes. There is no substantial pleural effusion or pneumothorax identified. Central venous catheter remains in place. IMPRESSION: Mild cardiomegaly. No other evidence of acute disease.) - CT/MRI 1 CT Study: Head Impression: Abnormal (FINDINGS: There is no evidence of intracranial hemorrhage, mass effect, midline shift, or hydrocephalus. There is no evidence of infarct, although acute infarcts may not be immediately visible. There is no evidence of skull fracture. IMPRESSION: No visible acute intracranial abnormality. No ev idence of intracranial injury. This exam was performed using automated exposure control, adjustment of mA or kV according to patient size, and/or use of iterative reconstruction technique. Electronically signed by Tripp Lees 09/30/2018 12:07 PM) - CONSULTS/PCP/HOSPITALIST Notification #1 *Consult/PCP/Hospitalist*: Dr Rodríguez Time Discussed: 13:30 Consult Disposition: Admit Departure - Departure Date of Disposition Decision: 09/30/18 Time of Disposition Decision: 13:30 DIAGNOSIS: UTI (urinary tract infection), Altered mental status, Congestive heart failure Disposition: ADMITTED INPATIENT 09 Certified Medical Emergency: Emergent Condition: Stable - Critical Care Note This patient required my direct & personal management of CC.: No Attestation - Physician/ GULSHAN Attestation Patient care was provided by Advanced Practice Provider:: No The physician spent face to face time with patient:: Yes Advanced Practice Provider documentation review:: Supervising physician onsite and consulted in the evaluation and care of this patient. The physician did have a face to face encounter with the patient. This chart was documented by the indicated scribe, (Juli Hernandez, [place]) and accurately reflects the services I performed and decisions made by me, Helen Choe MD, as attested by the provider's signature.
[2018-09-30] MEDS ORDERED: TYLENOL PM PO PRN (19:55)
[2018-09-30] MEDS ORDERED: LYRICA PO SCH (21:00)
[2018-09-30] MEDS ORDERED: TYLENOL PM PO SCH (21:00)
[2018-09-30] MEDS ORDERED: ELIQUIS PO SCH (21:00)
[2018-09-30] MEDS ORDERED: LOPRESSOR PO SCH (21:00)
[2018-09-30] MEDS ORDERED: CARDIZEM CD PO SCH (21:00)
[2018-09-30] MEDS ORDERED: ADVAIR 100/50 DISKUS INH SCH (21:00)
--- NOTE | 2018-10-01 00:04 | HISTORY AND PHYSICAL ---
CHIEF COMPLAINT: Obtundation, altered mental status, declining of activities of daily living. HISTORY OF PRESENT ILLNESS: She is a 78-year-old white female who has been admitted several times over the last few months, slowly declining of her activities of daily living. Was brought in by family 2nd time in the ER since she left from the hospital from [place]. The patient is very drowsy and had a fall and left knee pain. No syncope. No head injury. No other external injuries noted. The patient has been unable to urinate since yesterday morning. Family reports the patient has ambulated normally with a walker until her fall on 09/29/2018. The patient was seen by commercial drone pilot, Dr. Newsome, waiting for electrophysiology study for regulating the atrial fibrillation. The patient is not currently taking Lasix. Apparently all the workup was essentially unremarkable except urinary tract infection, swelling of legs, cellulitis of both legs. I did examine the patient in the ER. The patient was arousable, very sleepy, lethargic. CT head was negative. Recently discharged from [facility] for acute hypercapnic respiratory failure. The patient has a history of non-Hodgkin lymphoma, under the care of Dr. Rodgers, no chemotherapy for the last few months. She has been on maintenance treatment with matuzumab. She was treated with acute bronchitis and UTI with IV Rocephin. She was placed on Flomax and folic acid. She had no medications, and in fact, I saw her last week in my office, doing very well. PAST MEDICAL HISTORY: Atrial fibrillation. Last cardiac stress test was negative in 2010. Type 2 diabetes, diet controlled and medications. Hiatal hernia. Hypertension. Gout. Hypothyroidism. Chronic lymphedema of the left leg. Non-Hodgkin lymphoma. Multinodular goiter. PAST SURGICAL HISTORY: Thyroidectomy, cholecystectomy, hysterectomy, back surgery, bilateral knee arthroplasty, port cath on the right side of the chest. MEDICATIONS FROM [facility]: Tylenol P.M. at bedtime. Advair 100/50 one puff b.i.d. Allopurinol 200 daily. Azelastine nasal spray b.i.d. Cardizem 120 p.o. b.i.d. Lanoxin 125 daily. Eliquis 5 mg p.o. b.i.d. Flomax 0.4 daily. Folic acid 1 mg daily. Synthroid 100 mcg daily. Lexapro 10 daily. Metoprolol 50 p.o. b.i.d. Prilosec 40 mg daily. Medrol Dosepak. Xanax 0.25 as needed. Lyrica 25 p.o. daily. ALLERGIES: Reported to IVP dye, morphine, SOCIAL HISTORY: Three children. . No smoking. No alcohol. FAMILY HISTORY: Father of [place] at 62. Mom of ruptured gallbladder complications. HEALTH MAINTENANCE: Flu vaccine 06/2018. Pneumococcal 2018. Mammography 11/2016. Colonoscopy 11/2013. Cardiolite stress test 2010 DEXA scan 2016. PHYSICAL EXAMINATION: The patient is totally obtunded, not easily arousable. Family at bedside. VITAL SIGNS: Afebrile, pulse is 67. Hemodynamics are stable. GENERAL: Heavy set. The patient is very lethargic but arousable and snoring. Port presence on the right side. CHEST: Clear. HEART: Sounds are irregular. ABDOMEN: Belly is soft, nontender. GENITOURINARY: Eason was placed. EXTREMITIES: Bilateral knee scars present. There is 2+ edema, nonpitting, with cellulitis changes noted. INVESTIGATIONS: CBC: White cell count 5.2, hematocrit 31.4, platelets 138,000. PT 19, INR 1.5. ABG: pH is 7.30, pCO2 of 59, pO2 of 99, and 28%. SMA-7: Sodium 139, potassium 4.9, chloride 104, BUN 16, creatinine 1.3, glucose 162. ProBNP 2074. Urinalysis positive for infection. Urine toxicology screen is negative except the benzodiazepines. CT head: No evidence of intracranial injury. Chest x-ray: Cardiomegaly, port on the right side, stable chest. ASSESSMENT AND PLAN: 1. A 78-year-old white female admitted to the hospital with altered mental status due to delirium, due to hypercapnic failure, due to benzodiazepines. Will discontinue. Also discontinue Tylenol P.M. 2. Suspicious for neurogenic bladder. Will monitor the bladder scan. 3. Chronic kidney disease. Stable. 4. Atrial fibrillation with congestive heart failure, diastolic heart failure, rate control and Eliquis. Not able to tolerate flutamide. 5. Gout, stable. 6. Non-Hodgkin lymphoma, stable. 7. Continue IV Lasix and follow up on urine for culture as well as IV Rocephin with cellulitis. 8. Physical Therapy consult. 9. Reconcile home medications. 10. Will follow up. cc: Loc Rodríguez MD MTDD
[2018-10-01] MEDS ORDERED: PRILOSEC PO SCH (07:00)
[2018-10-01] MEDS: ADVAIR 100/50 DISKUS INH SCH ×2 (08:29→20:46)
[2018-10-01] MEDS ORDERED: LEXAPRO PO SCH (09:00)
[2018-10-01] MEDS ORDERED: SYNTHROID MISC SCH (09:00)
[2018-10-01] MEDS ORDERED: ZYLOPRIM PO SCH (09:00)
[2018-10-01] MEDS ORDERED: LASIX IV SCH (09:00)
[2018-10-01] MEDS ORDERED: FOLIC ACID PO SCH (09:00)
[2018-10-01] MEDS ORDERED: LANOXIN PO SCH ×2 (09:00→09:30)
[2018-10-01] MEDS ORDERED: CULTURELLE PO SCH (09:00)
[2018-10-01] MEDS ORDERED: LASIX PO SCH (09:45)
[2018-10-01] MEDS ORDERED: PRILOSEC PO ONE (09:56)
[2018-10-01] MEDS ORDERED: TYLENOL PM PO PRN (09:58)
[2018-10-01] MEDS ORDERED: SYNTHROID PO ONE (10:13)
[2018-10-01] MEDS: LOPRESSOR PO SCH ×2 (10:48→20:20)
[2018-10-01] MEDS: ROCEPHIN 1 GM in NS 50 ML IV SCH (10:48)
[2018-10-01] MEDS: ZYLOPRIM PO SCH (10:50)
[2018-10-01] MEDS: LASIX IV SCH (10:51)
[2018-10-01] MEDS: CULTURELLE PO SCH (11:03)
[2018-10-01] MEDS: CARDIZEM CD PO SCH ×2 (11:04→20:20)
[2018-10-01] MEDS: LEXAPRO PO SCH (11:04)
[2018-10-01] MEDS: ELIQUIS PO SCH ×2 (11:04→20:17)
[2018-10-01] MEDS ORDERED: PRILOSEC ONE (11:04)
--- NOTE | 2018-10-01 13:46 | PROGRESS NOTE ---
DATE: 10/01/2018 SUBJECTIVE: The patient is more awake and taking clear liquids. According to the nurses, she has pus in the bladder and loose stools noted. REVIEW OF SYSTEMS: None reported. PHYSICAL EXAMINATION: Pulse is 57, blood pressure is stable. HEENT examination within normal limits. Poor air entry. Distant heart sounds. Belly is soft, nontender. Eason. There is 2+ pedal edema in both legs. Legs are red. No obvious deficits noted. INVESTIGATIONS: None reported. ASSESSMENT AND PLAN: 1. Altered mental status due to metabolic encephalopathy. 2. Urinary tract infection. Intravenous ceftriaxone. Follow up on culture and sensitivity. 3. Diarrhea. We will check the stool studies. 4. Chronic atrial fibrillation. Hold the Lanoxin. Continue on the Cardizem. Reconcile home medicines. Physical therapy, out of the bed. Repeat the labs in the morning. Waiting to be admitted on the floor. LEVEL OF DOCUMENTATION: 25 minutes. cc: Loc Rodríguez MD
[2018-10-01] MEDS: FOLIC ACID PO SCH (17:41)
[2018-10-01] MEDS: LYRICA PO SCH (20:17)
[2018-10-02] MEDS: SYNTHROID PO SCH ×2 (05:46→06:07)
[2018-10-02] MEDS: PRILOSEC PO SCH ×2 (05:46→06:07)
[2018-10-02] MEDS ORDERED: PRILOSEC PO SCH (07:00)
--- NOTE | 2018-10-02 07:35 | EKG Report ---
Test Performed on : 10/01/2018 06:12:38 AM Test Reason : cp Blood Pressure : / mmHG Vent. Rate : 052 BPM Atrial Rate : 104 BPM P-R Int : 000 ms QRS Dur : 148 ms QT Int : 396 ms P-R-T Axes : 000 -16 000 degrees QTc Int : 368 ms Atrial fibrillation. with slow ventricular response. Right bundle branch block Inferior infarct (cited on or before 19-AUG-2018) Abnormal ECG When compared with ECG of 30-SEP-2018 10:35, (Unconfirmed) QT has shortened Confirmed by Vivienne SMITH, Wolfgang ([id number]) on 10/02/2018 9:04:08 AM
[2018-10-02 07:38] LABS: BASO# 0.01 X1000 (0.0-0.2); BASO% 0.2 % (0.0-0.8); EOS# 0.14 X1000 (0.0-0.7); HEMATOCRIT 31.1 % (37.0-47.0); HEMOGLOBIN 9.8 g/dL (12.0-16.0); IMM GRAN# 0.04 X1000 (0.0-0.04); IMM GRAN% 0.8 % (0.0-0.5); LYMPH# 0.81 X1000 (1.2-3.4); LYMPH% 17.1 % (20.5-51.1); MCH 34.6 PG (27-31); MCHC 31.5 g/dL (33-37); MCV 109.9 FL (81-99); MONO% 10.6 % (1.7-9.3); MPV 10.8 FL (7.4-10.4); NEUT# 3.23 X1000 (1.4-6.5); NEUT% 68.3 % (42.2-75.2); PLT 169 X1000 (130-400); RBC 2.83 XMIL (4.2-5.4); RDW 15.7 % (11.5-14.5); WBC 4.73 X1000 (4.8-10.8)
[2018-10-02 07:43] LABS: CREATININE 1.4 mg/dL (0.5-0.9); POTASSIUM 4.5 mmol/L (3.5-5.1)
[2018-10-02] MEDS: ADVAIR 100/50 DISKUS INH SCH ×2 (07:47→19:20)
--- NOTE | 2018-10-02 08:05 | EKG Report ---
Test Performed on : 09/30/2018 10:35:12 AM Test Reason : ams Blood Pressure : / mmHG Vent. Rate : 069 BPM Atrial Rate : 093 BPM P-R Int : 000 ms QRS Dur : 146 ms QT Int : 404 ms P-R-T Axes : 000 -14 007 degrees QTc Int : 432 ms Atrial fibrillation. Right bundle branch block Inferior infarct (cited on or before 19-AUG-2018) Abnormal ECG When compared with ECG of 22-AUG-2018 17:30, Atrial fibrillation. has replaced Atrial flutter. Vent. rate has decreased BY 72 BPM Left anterior fascicular block is no longer present T wave inversion no longer evident in Inferior leads Unconfirmed Result
[2018-10-02] MEDS: LASIX IV SCH (08:40)
[2018-10-02] MEDS: FOLIC ACID PO SCH (08:40)
[2018-10-02] MEDS: LEXAPRO PO SCH (08:40)
[2018-10-02] MEDS: ELIQUIS PO SCH ×2 (08:40→22:25)
[2018-10-02] MEDS: CULTURELLE PO SCH (08:40)
[2018-10-02] MEDS: LOPRESSOR PO SCH ×2 (08:40→22:23)
[2018-10-02] MEDS: CARDIZEM CD PO SCH ×2 (08:40→22:23)
[2018-10-02] MEDS: ZYLOPRIM PO SCH (08:40)
[2018-10-02] MEDS ORDERED: CALMOSEPTINE OINTMENT TOP PRN (10:46)
[2018-10-02] MEDS: ROCEPHIN 1 GM in NS 50 ML IV SCH (11:17)
--- NOTE | 2018-10-02 20:17 | PROGRESS NOTE ---
DATE: 10/02/2018 SUBJECTIVE: The patient is still lethargic and heart rate is around 50 in atrial fibrillation on surveillance monitor. Not able to walk. Hemodynamics are stable. No complaints. OBJECTIVE: HEENT: Within normal limits. Chest: Is clear. Heart: Irregular heart sounds. Abdomen: Belly is soft, nontender. Extremities: Decrease in peripheral edema. INVESTIGATIONS: CBC: White cell count 4.7, hematocrit 31, platelet 169. SMA-7: Creatinine 1.4, glucose 152. ASSESSMENT AND PLAN: 1. Recurrent urinary tract infection causing metabolic encephalopathy. Currently receiving IV ceftriaxone. Continue IV Lasix. 2. Chronic atrial fibrillation, stable. Rate control on Eliquis. 3. Gout on Zyloprim. 4. Non-Hodgkin's lymphoma, stable. 5. Hypothyroidism on Synthroid. 6. Out of the bed with physical therapy and orthostatic blood pressure and advance the diet in the morning. Continue present treatment. LEVEL OF DOCUMENTATION: 25 minutes. cc: Loc Rodríguez MD
[2018-10-02] MEDS: LYRICA PO SCH (22:25)
[2018-10-03] MEDS: PRILOSEC PO SCH (06:23)
[2018-10-03] MEDS: SYNTHROID PO SCH (06:24)
[2018-10-03] MEDS: ADVAIR 100/50 DISKUS INH SCH ×2 (08:20→20:07)
[2018-10-03] MEDS: FOLIC ACID PO SCH (09:54)
[2018-10-03] MEDS: CULTURELLE PO SCH (09:54)
[2018-10-03] MEDS: LEXAPRO PO SCH (09:54)
[2018-10-03] MEDS: ZYLOPRIM PO SCH (09:54)
[2018-10-03] MEDS: LASIX IV SCH (09:54)
[2018-10-03] MEDS: ROCEPHIN 1 GM in NS 50 ML IV SCH (09:54)
[2018-10-03] MEDS: LOPRESSOR PO SCH ×2 (09:54→23:13)
[2018-10-03] MEDS: ELIQUIS PO SCH ×2 (09:54→23:12)
[2018-10-03] MEDS: CARDIZEM CD PO SCH ×2 (09:54→23:13)
--- NOTE | 2018-10-03 21:06 | PROGRESS NOTE ---
DATE: 10/03/2018 SUBJECTIVE: The patient is still bedridden, not able to ambulate. REVIEW OF SYSTEMS: None reported. PHYSICAL EXAMINATION: Vital Signs: Low-grade fever. Vitals are stable. General: Morbidly obese. Exam: Physical exam unchanged. Decreased edema. Chronic lymphedema noted. ASSESSMENT AND PLAN: 1. Advance the diet. 2. Physical therapy. 3. Continue IV ceftriaxone, IV Lasix. 4. Chronic atrial fibrillation, stable. 5. Discussed with the patient caregiver. If she is completely bedridden, recurrent hospitalization, consider palliative services. The patient does have an appointment in two weeks to see engineering associate in [place]. Continue present treatment. LEVEL OF DOCUMENTATION: 15 minutes. cc: Loc Rodríguez MD
[2018-10-03] MEDS: LYRICA PO SCH (23:12)
[2018-10-04] MEDS: PRILOSEC PO SCH (06:17)
[2018-10-04] MEDS: SYNTHROID PO SCH (06:17)
[2018-10-04] MEDS: ADVAIR 100/50 DISKUS INH SCH ×2 (08:10→19:36)
[2018-10-04] MEDS: CULTURELLE PO SCH (08:42)
[2018-10-04] MEDS: LASIX IV SCH (08:42)
[2018-10-04] MEDS: LEXAPRO PO SCH (08:42)
[2018-10-04] MEDS: CARDIZEM CD PO SCH ×2 (08:42→20:22)
[2018-10-04] MEDS: ZYLOPRIM PO SCH (08:42)
[2018-10-04] MEDS: LOPRESSOR PO SCH ×2 (08:42→20:22)
[2018-10-04] MEDS: FOLIC ACID PO SCH (08:42)
[2018-10-04] MEDS: ELIQUIS PO SCH ×2 (08:42→20:22)
[2018-10-04] MEDS: ROCEPHIN 1 GM in NS 50 ML IV SCH ×2 (08:43→10:35)
[2018-10-04] MEDS: TYLENOL PO PRN (18:12)
--- NOTE | 2018-10-04 20:16 | PROGRESS NOTE ---
DATE: 10/04/2018 SUBJECTIVE: The patient is a little better, and still very feeble. I talked to the caregiver to find out what day she has an appointment in [place] for atrial fibrillation. UTI symptoms are improving. OBJECTIVE: Afebrile. Vital signs are stable. HEENT exam within normal limits. Chest is clear. Irregular heart sounds. Belly is soft, nontender. Eason was placed. Decreased edema. ASSESSMENT AND PLAN: 1. Chronic atrial fibrillation, stable. 2. Deconditioning. 3. Non-Hodgkin lymphoma, stable. 4. Urinary tract infection, on intravenous ceftriaxone. 5. Discontinue digitalis due to low heart rate. Continue on Cardizem and low dose of metoprolol. Continue intravenous Lasix, intravenous antibiotics and Eliquis. Based on the appointment in [place], further recommendations will be followed. Level of documentation 25 minutes. cc: Loc Rodríguez MD
[2018-10-04] MEDS: LYRICA PO SCH (20:22)
[2018-10-05] MEDS: ADVAIR 100/50 DISKUS INH SCH ×2 (08:15→20:05)
[2018-10-05] MEDS: ELIQUIS PO SCH ×2 (09:24→21:39)
[2018-10-05] MEDS: CULTURELLE PO SCH (09:25)
[2018-10-05] MEDS: LASIX IV SCH (09:25)
[2018-10-05] MEDS: LEXAPRO PO SCH (09:25)
[2018-10-05] MEDS: LOPRESSOR PO SCH ×2 (09:25→21:39)
[2018-10-05] MEDS: FOLIC ACID PO SCH (09:25)
[2018-10-05] MEDS: CARDIZEM CD PO SCH ×2 (09:25→21:39)
[2018-10-05] MEDS: ZYLOPRIM PO SCH (09:25)
[2018-10-05] MEDS: SYNTHROID PO SCH (09:28)
[2018-10-05] MEDS: PRILOSEC PO SCH (09:28)
[2018-10-05] MEDS: ROCEPHIN 1 GM in NS 50 ML IV SCH (09:32)
--- NOTE | 2018-10-05 21:31 | PROGRESS NOTE ---
DATE: 10/05/2018 SUBJECTIVE: The patient is out of the bed and patient is not able to ambulate, extremely weak. UTI symptoms are better. EXAMINATION: Vital Signs: Temperature is 98. Vitals are stable. Chest: Clear. Heart: Irregular heart sounds. Abdomen: Belly is soft, nontender. Eason was placed. ASSESSMENT AND PLAN: 1. Altered mental status. Improving. 2. Recurrent UTI. We will discontinue Eason. 3. Chronic atrial fibrillation, stable. 4. Non Hodgkin lymphoma, stable. 5. Deconditioning. 6. Discussed with the family. [facility] to [facility]. Unit Supervisor consulted. If bed is available, we will discharge in the morning. Continue present treatment. LEVEL OF DOCUMENTATION: 15 minutes. cc: Loc Rodríguez MD
[2018-10-05] MEDS: LYRICA PO SCH (21:39)
[2018-10-06] MEDS: PRILOSEC PO SCH (06:16)
[2018-10-06] MEDS: SYNTHROID PO SCH (06:16)
[2018-10-06] MEDS: ADVAIR 100/50 DISKUS INH SCH ×2 (08:12→19:47)
[2018-10-06] MEDS: ROCEPHIN 1 GM in NS 50 ML IV SCH (09:34)
[2018-10-06] MEDS: LEXAPRO PO SCH (09:36)
[2018-10-06] MEDS: ZYLOPRIM PO SCH (09:36)
[2018-10-06] MEDS: LOPRESSOR PO SCH ×2 (09:36→20:49)
[2018-10-06] MEDS: ELIQUIS PO SCH ×2 (09:36→20:49)
[2018-10-06] MEDS: FOLIC ACID PO SCH (09:36)
[2018-10-06] MEDS: CULTURELLE PO SCH (09:36)
[2018-10-06] MEDS: CARDIZEM CD PO SCH ×2 (09:37→20:50)
[2018-10-06] MEDS: LASIX IV SCH (09:37)
[2018-10-06] MEDS: TYLENOL PO PRN (11:10)
[2018-10-06] MEDS ORDERED: IMODIUM PO PRN (15:32)
--- NOTE | 2018-10-06 16:50 | DISCHARGE SUMMARY ---
ADMISSION DATE: 09/30/2018 DISCHARGE DATE: 10/09/2018 DISCHARGING DIAGNOSES: 1. Altered mental status due to urinary tract infection. 2. Chronic lymphedema with cellulitis. 3. Deconditioning. 4. Chronic atrial fibrillation with shira/tachycardia syndrome. 5. History of diastolic heart failure, stable. 6. Type 2 diabetes. 7. Hiatal hernia. 8. Hypertension. 9. Gout. 10. Hypothyroidism. 11. Non-Hodgkin's lymphoma, stage IV, in remission. 12. Nontoxic multinodular goiter. 13. Bilateral knee replacement. 14. Port-A-Cath on the right side. BRIEF HISTORY: Please see the H P that was done on 09/30/2018. In brief, she is a 78-year-old obese white female with the above problems, basically admitted to the hospital with deconditioning, altered mental status associated with UTI, and edema of the legs with cellulitis. The patient was lethargic, not able to ambulate. HOSPITAL COURSE: 1. The patient has UTI and Eason was placed. Patient was given IV ceftriaxone. Subsequently, urine is clear. 2. Chronic lymphedema with some redness and IV Lasix was given. She needs some lymphedema treatment, elevation. 3. Deconditioning. Needs assistance for ambulation for physical therapy. 4. The patient has a diarrhea, and stool cultures were obtained to rule out pseudomembranous colitis. Continue on Culturelle, Imodium as needed, and if these symptoms will not jorge, consider using Flagyl based on the clinical course. 5. Chronic atrial fibrillation, tachy-shira syndrome. Heart rate was going 50. I discontinued Lanoxin. Continue on metoprolol and Cardizem for rate control and anticoagulation with Eliquis. The rest of the hospital course was uneventful. The patient did have an appointment to see a demurrage man in 2 weeks in [place] for possible ablation with pacemaker involvement. DIAGNOSTIC STUDIES: Labs during this admission as follows CBC: White cell count 4.7, hematocrit 31.1, platelets 269,000. ABG: pH is 7.30, pCO2 of 59, PO2 of 99. SMA-7: Sodium 142, potassium 4.5, chloride 105, BUN 19, creatinine 1.4, glucose 154. Chest x-ray was stable. DISCHARGE INSTRUCTIONS: 1. Continue Eason catheter with a bag. 2. Prilosec 40 daily. Culturelle 1 tablet daily. Discontinue Xanax because of the sleepiness. Eliquis 5 mg p.o. b.i.d. Cardizem 120 p.o. b.i.d. Allopurinol 200 daily. Lexapro 10 mg 1 tablet daily. Advair 100/50 one puff b.i.d. Synthroid 100 mcg daily. Metoprolol 50 p.o. b.i.d. Flomax discontinued. Multivitamins 1 tablet daily. Furosemide 40 mg daily. 3. Out of the bed with physical therapy. 4. Lymphedema treatment. 5. Follow up with a demurrage man in [place] for cardiac ablation versus pacemaker for tachybradycardia syndrome. She will go heart rate low, and I discontinued the Lanoxin. 6. Bladder voiding trials. 7. Judicious use of sedatives. 8. Follow up on diarrhea. Continue Imodium as needed. 9. Follow up in my office in 2 weeks. cc: Loc Rodríguez MD MTDD
[2018-10-06] MEDS: LYRICA PO SCH (20:49)
[2018-10-07] MEDS: PRILOSEC PO SCH (06:17)
[2018-10-07] MEDS: SYNTHROID PO SCH (06:17)
[2018-10-07] MEDS: ADVAIR 100/50 DISKUS INH SCH ×2 (08:20→22:07)
[2018-10-07] MEDS: LEXAPRO PO SCH (08:48)
[2018-10-07] MEDS: ZYLOPRIM PO SCH (08:48)
[2018-10-07] MEDS: ELIQUIS PO SCH ×2 (08:48→20:24)
[2018-10-07] MEDS: CULTURELLE PO SCH (08:48)
[2018-10-07] MEDS: FOLIC ACID PO SCH (08:48)
[2018-10-07] MEDS: LOPRESSOR PO SCH ×2 (08:48→20:24)
[2018-10-07] MEDS: LASIX IV SCH (08:49)
[2018-10-07] MEDS: CARDIZEM CD PO SCH ×2 (08:49→20:24)
[2018-10-07] MEDS: ROCEPHIN 1 GM in NS 50 ML IV SCH (10:24)
[2018-10-07] MEDS: TYLENOL PO PRN (11:18)
--- NOTE | 2018-10-07 13:09 | PROGRESS NOTE ---
DATE: 10/07/2018 SUBJECTIVE: Patient was scheduled to go to rehab but bed availability was not there, so she had to stay here in the hospital until that becomes available on Tuesday. She has had severe irritation from her Eason catheter and had that placed on admission 1 week ago and she desires to have that out. She says she can ambulate without falling and she has been working with physical therapy. OBJECTIVE: Vital Signs: Afebrile, pulse 76, respirations 16, blood pressure 131/62, O2 saturation on 2 L 98%. CV: Irregularly irregular. Lungs: Clear. Abdomen: Protuberant, soft, nontender. Extremities: 2 to 3+ lower extremity edema, left greater than right, chronic in nature with some clear blisters on the left leg. Some moderate redness circumferentially left mid lower leg. Morbid obesity. Neuro: Cranial nerves are intact. She is alert and oriented x4. ASSESSMENT: 1. Altered mental status resolved. 2. UTI. 3. Chronic lymphedema with cellulitis lower extremities, left greater than right. 4. Deconditioning. 5. Morbid obesity. 6. Chronic atrial fibrillation, on anticoagulation. 7. Diastolic CHF chronic now compensated. 8. Type 2 diabetes mellitus. 9. Hiatal hernia. 10. Hypertension. 11. Gout. 12. Hypothyroidism. 13. Stage IV non-Hodgkin's lymphoma, stable in remission. 14. Nontoxic multinodular goiter. 15. 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 16. Port-A-Cath in place on the right. PLAN: We will try to bladder train and DC Eason. Continue antibiotics and Culturelle. We are monitoring her stool. She had 2 formed stools yesterday. Continue metoprolol and Cardizem for heart rate control and anticoagulation with Eliquis. Sending her to rehab when a bed is available on Tuesday. cc: MD Loc Sweeney MD
[2018-10-07] MEDS: LYRICA PO SCH (20:24)
[2018-10-08] MEDS: SYNTHROID PO SCH (06:02)
[2018-10-08] MEDS: PRILOSEC PO SCH (06:02)
[2018-10-08] MEDS: ADVAIR 100/50 DISKUS INH SCH ×2 (08:18→20:30)
[2018-10-08] MEDS: CARDIZEM CD PO SCH ×2 (08:59→20:41)
[2018-10-08] MEDS: ZYLOPRIM PO SCH (08:59)
[2018-10-08] MEDS: FOLIC ACID PO SCH (08:59)
[2018-10-08] MEDS: CULTURELLE PO SCH (08:59)
[2018-10-08] MEDS: LASIX IV SCH (08:59)
[2018-10-08] MEDS: LOPRESSOR PO SCH ×2 (08:59→20:41)
[2018-10-08] MEDS: ELIQUIS PO SCH ×2 (08:59→20:41)
[2018-10-08] MEDS: LEXAPRO PO SCH (08:59)
--- NOTE | 2018-10-08 11:49 | PROGRESS NOTE ---
DATE: 10/08/2018 SUBJECTIVE: The patient complains of some nausea, which she thinks is related to reflux. Overall, doing well. She had the Eason catheter removed yesterday and is urinating well without difficulty. OBJECTIVE: Vitals: Temperature maximum 99.5 degrees, pulse 75, respirations 18, blood pressure 147/61, O2 saturation room air 94-97%. CARDIOVASCULAR: Regular rhythm and rate. Lungs: Clear. Abdomen: Soft, protuberant, nontender, nondistended. No mass. No hepatosplenomegaly. Active bowel sounds. Extremities: 2+ lower extremity edema. Some redness circumferentially around the [id number] legs, left greater than right. There is mild redness and there are also some minimal clear blisters, but the blisters are improved markedly on the left since yesterday. ASSESSMENT: 1. Altered mental status, resolved. 2. Urinary tract infection. 3. Chronic lymphedema with cellulitis lower extremity, left greater than right. 4. Deconditioning. 5. Morbid obesity. 6. Chronic atrial fibrillation, on anticoagulation. 7. Diastolic congestive heart failure, chronic and compensated. 8. Type 2 diabetes mellitus. 9. Hiatal hernia with gastroesophageal reflux disease. 10. Hypertension. 11. Gout. 12. Hypothyroidism. 13. Stage IV non-Hodgkin lymphoma, stable in remission. 14. Nontoxic multinodular goiter. 15. Osteoarthritis with prior history of knee replacements. 16. Port-A-Cath in place on the right. PLAN: We will treat the nausea with Zofran. Continue omeprazole. Continue IV Rocephin. Bed availability for rehab placement looks favorable for tomorrow, so she will probably be able to be discharged tomorrow. Continue physical therapy in the interim. cc: MD Loc Sweeney MD
[2018-10-08] MEDS: ROCEPHIN 1 GM in NS 50 ML IV SCH (11:54)
[2018-10-08] MEDS: ZOFRAN IV PRN (14:13)
[2018-10-08] MEDS: TYLENOL PO PRN (18:49)
[2018-10-08] MEDS: LYRICA PO SCH (20:41)
[2018-10-09] MEDS: PRILOSEC PO SCH (06:12)
[2018-10-09] MEDS: SYNTHROID PO SCH (06:12)
[2018-10-09 07:37] VITALS: BP 155/72
[2018-10-09] MEDS: ZOFRAN IV PRN (09:09)
[2018-10-09] MEDS: LEXAPRO PO SCH (10:00)
[2018-10-09] MEDS: ELIQUIS PO SCH (10:00)
[2018-10-09] MEDS: ZYLOPRIM PO SCH (10:00)
[2018-10-09] MEDS: CULTURELLE PO SCH (10:00)
[2018-10-09] MEDS: FOLIC ACID PO SCH (10:00)
[2018-10-09] MEDS: LOPRESSOR PO SCH (10:00)
[2018-10-09] MEDS: CARDIZEM CD PO SCH (10:00)
[2018-10-09] MEDS: ROCEPHIN 1 GM in NS 50 ML IV SCH (10:02)
[2018-10-09] MEDS: LASIX IV SCH (10:02)
[2018-10-09] MEDS: ADVAIR 100/50 DISKUS INH SCH (10:07)
== END 2018-10-09 13:09 | DRG 689 ==
LOC: SUPCPDRO → ED 10:08 → EDIPHOLD 13:15 → 3N 10-01 13:49
PROVIDERS: ADMIT Internal Medicine; ATTEND Internal Medicine
CPT/HCPCS: 51702; 70450; 71010; 71045; 73502; 73552; 73562; 80048; 80053; 80101; 80301; 80307; 80324; 80345; 80346; 80353; 80358; 80361; 80365; 81001; 82550; 82805; 82948; 83605; 83880; 83992; 84484; 85025; 85610; 85730; 87324; 93005; 94640; 94761; 94799; 96365; 96366; 96375; 97110; 97162; 97530; 99284; 99285; A9270; G0431; G0434; G0479; G0480; J0696; J1940; J2405; XXXXX